=== PATIENT | female | born 1945 | race Caucasian/White ===

== ENCOUNTER → 2018-10-24 | Outpatient (CLI) | payer MEDICARE ==
[~2018-10-24] MED LIST: ACET120S; ALBU3IS INH; ALBU90OI INH; ALBU90OI61 INH; ASPI81CH PO; ATOR10 PO; AZIT500 PO; BISA10S PR; CITA20 PO; Calcitonin-Sal3.7 ML; DEXA4 PO; DILT60 PO; DOCU100 PO; DOXE10 PO; ESTEST.625 PO; EXCEDRIN PM PO; Excedrin Extra1 EACH PO; FAMO10 PO; FAMO20 PO; FURO40 PO; FURO80 PO; HYDCOR10 PO; LEVO750 PO; LEVSOD100 PO; LEVSOD75 PO; LISI5 PO; LOSA25 PO; Lasix80 MG PO; METF500 PO; METO2.5 PO; METO50ER PO; NEBI10 PO; NEBI5 PO; OLME5TAB PO; OMEPRAZOLE20 MG PO; POTA10T PO; POTCHL10ER PO; PRED20 PO; PULMICORT FLEXHALER; Pedi-Dri 100,0060 GM TOP; SODBIC650 PO; SPIR25 PO; SPIRIVA RESPIMAT4 GM INH; Tylenol325 MG PO; WARF5 PO; WARF7.5 PO
[2018-10-24 16:20] LABS: Albumin/Globulin Ratio 1.1 (0.8-1.8); Bilirubin, Total 1.1 mg/dL (0.1-1.0); Bun/Creatinine Ratio 58.4 (12.0-20.0); Calcium, Blood 9.1 mg/dL (8.5-10.1); Creatinine, Blood 1.54 mg/dL (0.40-1.00); Globulin, Blood 3.8 g/dL (2.2-4.0); Potassium, Blood 6.1 mmol/L (3.5-5.5); Total Protein, Blood 7.8 g/dL (6.4-8.2)
[2018-10-31 14:06] LABS: A/G RATIO 1.1 (0.7-1.7); ALBUMIN 3.9 g/dL (2.9-4.4); ALPHA-1-GLOBULIN 0.3 g/dL (0.0-0.4); ALPHA-2-GLOBULIN 0.7 g/dL (0.4-1.0); BETA GLOBULIN 0.8 g/dL (0.7-1.3); GAMMA GLOBULIN 1.8 g/dL (0.4-1.8); GLOBULIN, TOTAL 3.6 g/dL (2.2-3.9); IMMUNOGLOBULIN A, QN, SERUM 1573 mg/dL (64-422); IMMUNOGLOBULIN G, QN, SERUM 713 mg/dL (700-1600); IMMUNOGLOBULIN M, QN, SERUM 41 mg/dL (26-217); PROTEIN, TOTAL, SERUM 7.5 g/dL (6.0-8.5)
== END | disposition home or self-care (01) ==
LOC: LAB 13:44 → LAB SHORT 13:44
PROVIDERS: Internal Medicine Hematology & Oncology
DX: C90.00 Multiple myeloma not having achieved remission (principal)
CPT/HCPCS: 80053; 82784; 83615; 83883; 84155; 84165; 86334

== ENCOUNTER 2018-11-06 04:48 | Inpatient (IN) | payer MEDICARE ==
[~2018-11-06] VITALS: Ht 170.2 cm; Wt 148.3 kg
[~2018-11-06 04:48] MED LIST changes: -ASPI81CH PO; -Calcitonin-Sal3.7 ML; -DEXA4 PO; -DOXE10 PO; -HYDCOR10 PO; -LOSA25 PO; -METO50ER PO; -NEBI5 PO; -OLME5TAB PO; -OMEPRAZOLE20 MG PO; -Pedi-Dri 100,0060 GM TOP; -SODBIC650 PO
[2018-11-06 05:42] LABS: Albumin, Blood 2.6 g/dL (3.4-5.0); Albumin/Globulin Ratio 0.9 (0.8-1.8); Bilirubin, Total 2.1 mg/dL (0.1-1.0); Bun/Creatinine Ratio 60.5 (12.0-20.0); Calcium, Blood 8.7 mg/dL (8.5-10.1); Creatinine, Blood 1.95 mg/dL (0.40-1.00); Globulin, Blood 2.9 g/dL (2.2-4.0); Magnesium, Blood 2.5 mg/dL (1.6-2.4); Potassium, Blood 5.2 mmol/L (3.5-5.5); Total Protein, Blood 5.5 g/dL (6.4-8.2)
[2018-11-06 05:43] LABS: Troponin I 0.913 ng/mL (0.000-0.040)
[2018-11-06 05:52] LABS: Hematocrit 46.5 % (33.0-51.0); Hemoglobin 15.8 g/dL (11.5-16.0); LYMPHOCYTES ABSOLUTE AUTO 0.93 K/mm3 (0.84-5.20); LYMPHOCYTES PERCENT AUTO 2 % (21-46); MONOCYTES ABSOLUTE AUTO 2.32 K/mm3 (0.16-1.47); MONOCYTES PERCENT AUTO 4 % (4-13); Mean Corpuscular HGB 31.3 pg (26.0-34.0); Mean Corpuscular Volume 92 fL (80-100); NRBC ABSOLUTE 0.06 K/mm3 (0.00-0.02); NRBC Auto 0.1 /100 WBC (0.0-0.2); Platelet Count 89 K/mm3 (150-400); RDW Coefficient Variation 14.9 % (11.7-14.2); RDW Standard Deviation 50.6 fL (35.1-46.3); Red Blood Cell Count 5.05 M/mm3 (3.80-5.20)
[2018-11-06 05:54] LABS: BASOPHILS ABSOLUTE AUTO 0.02 K/mm3 (0.00-0.23); BASOPHILS PERCENT AUTO 0 % (0-2); EOSINOPHILS ABSOLUTE AUTO 0.01 K/mm3 (0.00-0.68); EOSINOPHILS PERCENT AUTO 0 % (0-6); IMMATURE GRAN ABSOLUTE AUTO 2.39 K/mm3 (0.00-0.10); IMMATURE GRAN PERCENT AUTO 4 % (0-1); NEUTROPHILS ABSOLUTE AUTO 50.95 K/mm3 (1.96-9.15); NEUTROPHILS PERCENT AUTO 90 % (41-73); White Blood Cell Count 56.62 K/mm3 (4.00-11.30)
[2018-11-06 06:33] LABS: Prothrombin Time Results 41.9 Sec (9.7-11.5)
[2018-11-06 06:34] LABS: International Normalized Ratio 4.54
[2018-11-06 06:47] LABS: PCO2 Arterial 23.7 mmHg (35-45); PO2 Arterial 138 mmHg (80-100); pH Blood Arterial 7.42 (7.35-7.45)
[2018-11-06 08:40] LABS: Phosphorus, Blood 4.1 mg/dL (2.5-4.9)
[2018-11-06 13:10] LABS: Hematocrit 39.9 % (33.0-51.0); Hemoglobin 13.7 g/dL (11.5-16.0); LYMPHOCYTES ABSOLUTE AUTO 0.88 K/mm3 (0.84-5.20); LYMPHOCYTES PERCENT AUTO 1 % (21-46); MONOCYTES ABSOLUTE AUTO 1.92 K/mm3 (0.16-1.47); MONOCYTES PERCENT AUTO 3 % (4-13); Mean Corpuscular HGB 31.5 pg (26.0-34.0); Mean Corpuscular HGB Conc 34.3 g/dL (31.5-36.5); Mean Corpuscular Volume 92 fL (80-100); NRBC ABSOLUTE 0.03 K/mm3 (0.00-0.02); Platelet Count 66 K/mm3 (150-400); RDW Coefficient Variation 14.9 % (11.7-14.2); RDW Standard Deviation 50.4 fL (35.1-46.3); Red Blood Cell Count 4.35 M/mm3 (3.80-5.20)
[2018-11-06] MEDS ORDERED: OMEPRAZOLE20 MG PO (13:15)
[2018-11-06] MEDS ORDERED: POTA10T PO (13:16)
[2018-11-06] MEDS ORDERED: LEVSOD75 PO (13:16)
[2018-11-06] MEDS ORDERED: DEXA4 PO (13:17)
[2018-11-06] MEDS ORDERED: DOXE10 PO (13:19)
[2018-11-06] MEDS ORDERED: OLME5TAB PO (13:20)
[2018-11-06] MEDS ORDERED: LOSA25 PO (13:21)
[2018-11-06] MEDS ORDERED: NEBI5 PO (13:22)
[2018-11-06 13:29] LABS: BASOPHILS ABSOLUTE AUTO 0.02 K/mm3 (0.00-0.23); BASOPHILS PERCENT AUTO 0 % (0-2); EOSINOPHILS ABSOLUTE AUTO 0.02 K/mm3 (0.00-0.68); EOSINOPHILS PERCENT AUTO 0 % (0-6); IMMATURE GRAN ABSOLUTE AUTO 3.01 K/mm3 (0.00-0.10); IMMATURE GRAN PERCENT AUTO 5 % (0-1); NEUTROPHILS ABSOLUTE AUTO 55.12 K/mm3 (1.96-9.15); NEUTROPHILS PERCENT AUTO 91 % (41-73)
[2018-11-06 13:31] LABS: White Blood Cell Count 60.97 K/mm3 (4.00-11.30)
[2018-11-06 13:42] LABS: Albumin, Blood 2.1 g/dL (3.4-5.0); Anion Gap 11 mmol/L (6-16); Blood Urea Nitrogen 114 mg/dL (8-24); Bun/Creatinine Ratio 51.4 (12.0-20.0); CO2, Blood 16 mmol/L (21-32); CPK Creatine Kinase 95 U/L (26-193); Calcium, Blood 7.1 mg/dL (8.5-10.1); Chloride, Blood 112 mmol/L (98-108); Creatinine, Blood 2.22 mg/dL (0.40-1.00); Glomerular Filtration Rate 23 (60-); Glucose, Blood 275 mg/dL (70-99); Phosphorus, Blood 5.1 mg/dL (2.5-4.9); Potassium, Blood 5.1 mmol/L (3.5-5.5); Sodium, Blood 139 mmol/L (136-145)
[2018-11-06 14:14] LABS: Source, Urine Catheter
[2018-11-06 14:23] LABS: Blood, Urine 5+ (Neg); Glucose Qualitative, Urine Neg (Neg); Ketones, Urine 1+ (Neg); Leukocyte Esterase, Urine 3+ (Neg); Nitrite, Urine Neg (Neg); Protein, Urine 2+ (Neg); Urobilinogen, Urine 2+ (Normal)
[2018-11-06 14:30] LABS: Bilirubin, Urine 2+ (Neg)
--- NOTE | 2018-11-06 14:39 | NUR ---
ADMIT: PT ARRIVED TO ICU 7 AT 1120 VIA BED. PT IS IN AFIB WITH RATE IN THE 110-120S. PT IS AWAKE AND ORIENTED. FINGERTIPS ARE CYANOTIC WITH CAP REFILL GREATER THAN 3 SECONDS. UNABLE TO READ BP. SYSTOLIC VIA DOPPLER IS IN THE 60S. DR. WHEATLEY AND DR. RYAN AT THE BEDSIDE. ORDERS RECEIVED FOR 2L NS AND FOR PICC LINE. DR. GARCIA AND STEVEN NOTIFIED OF CONSULTS. PT'S BP READ IN THE 70S AFTER 2L NS, DR. WHEATLEY GAVE ORDER FOR ANOTHER LITER OF NS AND TO START LEVOPHED. LEVOPHED STARTED AT 5 MCG/MIN AND SYSTOLIC VIA DOPPLER IN THE 80S, INCREASED LEVOPHED TO 10. PT HAD NO URINE OUTPUT UPON ARRIVAL TO ICU AND ONLY HAD 20CC IN 3 HOURS, DRS AWARE. LAB CURRENTLY TRYING TO GET BLOOD CULTURES, THEN ABX WILL BE STARTED. CONTINUING TO MONITOR.
[2018-11-06 14:40] LABS: Appearance, Urine Hazy (Clear); Color, Urine Yellow (P-Yellow)
[2018-11-06 14:41] LABS: Bacteria Many /hpf; Red Blood Cells, Urine 25-50 /hpf (0-2); Squamous Epithelial Cells Mod /hpf (Few)
[2018-11-06 16:35] LABS: Albumin, Blood 2.2 g/dL (3.4-5.0); Anion Gap 8 mmol/L (6-16); Blood Urea Nitrogen 113 mg/dL (8-24); Bun/Creatinine Ratio 56.8 (12.0-20.0); CO2, Blood 19 mmol/L (21-32); Calcium, Blood 7.5 mg/dL (8.5-10.1); Chloride, Blood 111 mmol/L (98-108); Creatinine, Blood 1.99 mg/dL (0.40-1.00); Glomerular Filtration Rate 26 (60-); Glucose, Blood 313 mg/dL (70-99); Phosphorus, Blood 5.1 mg/dL (2.5-4.9); Potassium, Blood 4.8 mmol/L (3.5-5.5); Sodium, Blood 138 mmol/L (136-145)
--- NOTE | 2018-11-06 17:22 | NUR ---
SHIFT SUMMARY: PT HAS CONTINUED TO HAVE ISSUES WITH HYPOTENSION SINCE ADMIT. PT IS MORE ALERT, HER FINGERS ARE PINK AND WARM WITH GOOD CAP REFILL, ABLE TO GET GOOD PULSE OX READING OFF OF HER FINGERS NOW, BUT THE MONITORS WILL STILL NOT READ A BP AND DIFFICULT TO AUSCULTATE A MANUAL. DOPPLER SYSTOLIC IS STILL READING SBP OF 80 WITH LEVOPHED INFUSING. PT'S FEET REMAIN COOL TO TOUCH AND A LITTLE DUSKY. DR WHEATLEY IS AWARE OF ALL OF THIS AND CAME BACK TO SEE PT AGAIN THIS AFTERNOON. A 6TH BOLUS OF NS GIVEN PER HIS ORDER. INCREASE IN TROPONIN REPORTED TO HIM AND RECEIVED ORDER FOR EKG. NO OBVIOUS CHANGES ON EKG FROM ONE DONE IN ED EARLIER TODAY. IF ANYTHING, AREAS OF ST DEPRESSION LOOK IMPROVED. LUNGS REMAIN CLEAR, BUT DIM. PT'S FAMILY BROUGHT IN HER CPAP AND RT SET IT UP FOR HER. PATEL HAS HAD ABOUT 30ML OF URINE OUTPUT. PT HAS HAD MULTIPLE FAMILY MEMBERS IN TO SEE HER. DR. WHEATLEY SPOKE WITH AND UPDATED PT'S SISTER, ADELFO AND .
[2018-11-06] MEDS ORDERED: SODBIC650 PO (18:08)
--- NOTE | 2018-11-06 20:42 | NUR ---
CALLED TO CALLED DR. WHEATLEY REGARDING THE INABILTY TO OBTAIN A MANUAL BP ON PT. ALSO ADVISED HIM ABOUT DOPPLER PRESSURES OF 70-80 SYSTOLIC. LEVOPHED INFUSING AT 20MCG/MIN. UPDATED ON PT'S MENTATION AND URINE OUTPUT. ORDERS RECIVED TO CONTINUE TO MONITOR DOPPLER PRESSURES AND TO INFUSE A BOLUS OF 1L NS.
--- NOTE | 2018-11-06 22:36 | NUR ---
ASSUMED CARE NOTE: ASSUMED CARE OF PT AT 1900, RECIEVED REPORT FROM DOMINIQUE ROME. UPON ENTERING PT'S ROOM, SHE WAS IN THE SUPINE POSITION. PT IS ON HOME BIPAP, SP02 ABOVE 90%. LEVOPHED INITALLY AT 15MCG/MIN. UNABLE TO OBTAIN MANUAL BP, DOPPLER READ 70-80 SBP. LEVOPHED THEN TURNED UP TO 20MCG/MIN. BP CUFF WAS MOVED TO RIGHT WRIST AND IS OBTAINING BPS'S. PT IS ALERT AND ORIENTED TO SELF, FAMILY AND SITUATION. PT IS C/O OF BACK PAIN , STATING " IT HURTS WHEN SOMEONE TOUCHES MY LEG, OR WHEN I AM MOVED". SHE ALSO STATES THAT THE PAIN IS DECREASED WHEN SHE IS ABLE TO REMAIN IN THE SUPINE POSITION. PT DESCRIBES PAIN DULL. PT CRIES OUT WHEN SHE IS BEING MOVED OR TOUCHED. PT'S DAUGHTER THINKS THAT PAIN IS DUE TO RECENT FALL 11/01/18 AT HOME. PT WAS MEDICATED FOR PAIN PER EMAR.
--- NOTE | 2018-11-07 02:19 | NUR ---
DOPPLER PRESSURE: UNABLE TO OBTAIN BYRON BP, DOPPLER SBP IS READING 85-90. SLIGHT ELEVATION IN HR NOTED.
[2018-11-07 04:06] LABS: Hematocrit 43.4 % (33.0-51.0); Mean Corpuscular HGB 31.1 pg (26.0-34.0); Mean Corpuscular HGB Conc 34.6 g/dL (31.5-36.5); Mean Corpuscular Volume 90 fL (80-100); NRBC ABSOLUTE 0.08 K/mm3 (0.00-0.02); NRBC Auto 0.2 /100 WBC (0.0-0.2); Platelet Count 65 K/mm3 (150-400); RDW Standard Deviation 50.2 fL (35.1-46.3); Red Blood Cell Count 4.82 M/mm3 (3.80-5.20)
[2018-11-07 04:12] LABS: White Blood Cell Count 51.96 K/mm3 (4.00-11.30)
[2018-11-07 04:19] LABS: Albumin, Blood 2.4 g/dL (3.4-5.0); Anion Gap 10 mmol/L (6-16); Blood Urea Nitrogen 103 mg/dL (8-24); Bun/Creatinine Ratio 63.2 (12.0-20.0); CO2, Blood 20 mmol/L (21-32); Calcium, Blood 7.6 mg/dL (8.5-10.1); Chloride, Blood 106 mmol/L (98-108); Creatinine, Blood 1.63 mg/dL (0.40-1.00); Glomerular Filtration Rate 33 (60-); Glucose, Blood 337 mg/dL (70-99); Magnesium, Blood 2.2 mg/dL (1.6-2.4); Phosphorus, Blood 3.5 mg/dL (2.5-4.9); Potassium, Blood 4.4 mmol/L (3.5-5.5); Sodium, Blood 136 mmol/L (136-145); Uric Acid, Blood 8.8 mg/dL (2.6-6.0)
[2018-11-07 04:33] LABS: BAND PERCENT MAN 8 % (0-8); BASOPHILS PERCENT MAN 0 % (0-2); EOSINOPHILS PERCENT MAN 0 % (0-6); LYMPHOCYTES ABSOLUTE MAN 1.55 K/mm3 (0.84-5.20); LYMPHOCYTES PERCENT MAN 3 % (21-46); METAMYELOCYTE ABSOLUTE MAN 0.51 K/mm3 (0.00-0.00); METAMYELOCYTE PERCENT MAN 1 % (0-0); MONOCYTES ABSOLUTE MAN 2.07 K/mm3 (0.16-1.47); MONOCYTES PERCENT MAN 4 % (4-13); SEG NEUTROPHILS PERCENT MAN 84 % (41-73); TOTAL CELLS COUNTED 100
[2018-11-07 04:51] LABS: International Normalized Ratio 5.27
--- NOTE | 2018-11-07 06:10 | NUR ---
SHIFT SUMMARY: PT CONTINUES TO HAVE HYPOTENSION W/ DOPPLER PRESSURES READING IN THE 80-90'S FOR SBP. MAP ON MONITOR OCCASIONALLY READING 55-80'S. PT CONTINUES TO HAVE LEVOPHED INFUSING AT 20MCG/MIN. DR. WHEATLEY AWARE OF LOW PRESSURES, NS BOLUS INFUSING AT THIS TIME. PT IS CURRENTLY IN AFIB WITH HR INCREASING INTO THE 150'S. PT HAD CHANGES IN MENTATION DURING THE SHIFT, AT TIMES SHE WAS HAVING VISUAL HALLUCINATIONS, HOWEVER, SHE WAS BEEN ALERT AND ORIENTED FOR MOST OF THE SHIFT. PATEL IN PLACE, DRAINING SOFIA URINE. PT HAS BEEN C/O OF FEELING HOT, TEMP WNL. PT REPOSITIONED Q2H. BED AT LOWEST LEVEL, FAMILY AT BEDSIDE.
--- NOTE | 2018-11-07 09:50 | NUR ---
ASSUMED CARE OF PT. REPORT FROM JOVITA ROME. PT RESTING IN BED c DAUGHTER AND AT BEDSIDE. PT A&OX 3. C/O BACK PAIN D/T PREVIOUS FALLS. DENIES OTHER COMPLAINTS. LEVOPHED 20 MCG/MIN, SODIUM BICARB, VANCOMYCIN INFUSING THROUGH PICC TO RIGHT ARM. DIFFICULTIES OBTAINING BP. DR WHEATLEY AT BEDSIDE. ARTERIAL LINE PLACED TO RIGHT FEMORAL ARTERY. FLUSHES s DIFFUCULTY. PRESSURE BAG IN PLACED. SPB 80'S, MAP 50'S. VASOPRESSIN 0.04 UNITS/MIN STARTED. WILL CONTINUE TO TITRATE PRESSORS FOR MAP >65. EXTREMITIES COOL, CYANOTIC, DELAYED CAP REFILL. PT STATES SHE FEELS HOT. TRUNK PALE. HR 130-140'S, AFIB. EKG DONE AND SHOWN TO DR WHEATLEY. PATEL CATH IN PLACE, PATENT, DRAINING SMALL AMOUNT OF CLEAR SOFIA URINE. FAMILY AT BEDSIDE. CALL LIGHT IN REACH. WILL CONTINUE TO MONITOR.
--- NOTE | 2018-11-07 14:28 | NUR ---
BEDBATH AND PARTIAL LINEN CHANGE COMPLETED. PT TOLERATED WELL. CONTINUE TO TITRATE LEVOPHED FOR MAP >65. LEVOPHED INFUSING AT 11 MCG/MIN. FAMILY AT BEDSIDE. DR TERRY IN ROOM FOR ASSESSMENT. IMPROVED CAP REFILL AND COLOR TO LOWER EXTREMITIES. COOL TO TOUCH.
[2018-11-07 16:31] LABS: Bun/Creatinine Ratio 71.7 (12.0-20.0); Calcium, Blood 7.9 mg/dL (8.5-10.1); Creatinine, Blood 1.2 mg/dL (0.40-1.00); Magnesium, Blood 2.1 mg/dL (1.6-2.4); Potassium, Blood 4.2 mmol/L (3.5-5.5)
--- NOTE | 2018-11-07 18:19 | NUR ---
SHIFT SUMMARY. PT LAYING IN BED, WAKES c VERBAL STIMULI. ANSWERS QUESTIONS APPOPRIATELY, OCCASIONALLY HAS RANDOM STATEMENT UNRELATED TO CONVERSATION. QUICKLY REORIENTS. LEVOPHED AT 9 MCG/MIN AND VASOPRESSIN AT 0.04 UNITS/HR FOR MAP >65 TITRATED THROUGHOUT THE DAY. HR REMAINED AFIB RATE 120-140'S THROUGHOUT SHIFT. ABASARA NOTIFIED, NO ORDERS. PT REMAINS COOL TO TOUCH AND DUSKY TO LOWER EXTREMITES THOUGH IMPROVED THROUGHOUT SHIFT. URINE OUTPUT INCREASED TO 900ML THIS SHIFT, PATEL PATENT AND DRAINING TO GRAVITY. FAMILY REMAINS AT BEDSIDE. REPORT TO ONCOMING NURSE.
--- NOTE | 2018-11-07 19:25 | NUR ---
DNR/DNI: DR. GARCIA AT BEDSIDE DURING SHIFT-CHANGE REPORT. LOLY RN AND SOFIA RN UPDATED DR. GARCIA IN REGARDS BLOOD PRESSURES T/O DAY SHIFT AND PT'S FREQUENT REQUESTS TO BE DNR. FAMILY AND SPOUSE AT BEDSIDE AND CONFIRMED THAT PT IS TO BE DNR. CURRENTLY FAMILY INCLUDING DAUGHTER JEANMARIE AND SPOUSE AT BEDSIDE AND CONFIRMED THAT PT IS TO BE DNR/DNI. PT LYING SUPINE. FAMILY STATE THAT PT PREFERES TO LIE FLAT. PT WITH CPAP AT BEDSIDE. PT'S DAUGHTER JEANMARIE STATED THAT PT HAS BEEN REFUSING TO WEAR HER CPAP BOTH LAST NOC AND DURING TODAY. FAMILY REMAIN AT BEDSIDE.
--- NOTE | 2018-11-07 22:10 | NUR ---
START OF SHIFT: PT DROWSY BUT AWAKENS EASILY TO RN OR FAMILY AT BEDSIDE. PT ANSWERING QUESTIONS APPROPRIATELY WHEN AWAKE. ARTLINE WNL WITH LEVOPHED INCREASED FROM 8mcg TO 9mcg TO KEEP MAP >65. SEE FLOW SHEET. PT LYING SUPINE AND STATED WANTS TO REMAIN IN THAT POSITION. PT BROUGHT TO LOW FOWLERS FOR PO MED AND PT YELLED OUT STATING, "IT HURTS BY BACK. I HAVE TO TEACH EVERYBODY!". PT'S DAUGHTER AT BEDSIDE AND STATED THAT THE PT WILL RADOMLY REQUEST TO BE MOVED BUT PREFERS TO LIE FLAT. SKIN OVERALL DRY BUT COOL TO THE TOUCH. PT STATED SHE GETS HOT REAL EASILY AND HAS TWO FANS BLOWING ON HER. EXTREM COOL BUT NAILBEDS PINK. HEEL PROTECTORS PLACED. PT REQUESTING TO SLEEP. WILL CONTINUE TO MONITOR.
--- NOTE | 2018-11-08 00:57 | NUR ---
UPDATE: PT REMAINS SUPINE, HOWEVER, REQUESTED BEDPAN. PT PASSING FLATUS AND STATED, "IT'S COMING". PT WITH ATTEMPT TO HAVE BM BUT STATED THAT SHE NEEDS TO USE THE COMMODE. PT GIVEN TIME ON BEDPAN BUT WITH NO RESULT. SKIN AND BUTTOCKS ASSESSED AND ARE WITHOUT REDNESS OR S/S OF SKIN BREAKDOWN. PT TOLERATED TURNS WELL GOING SLOWLY AND WITH PT INPUT. PT GIVEN TYLENOL PER REQUEST OF PT'S DAUGHTER WHO STATED PT TAKES TYLENOL FOR GENERAL ACHES. MIDNIGHT ASSESSMENT WITH NO CHANGES FROM PREVIOUS ASSESSMENT. ART LINE ZEROED. PT REQUEST TO LET SLEEP. LEVOPHED NOW AT 10mcg/min. WILL CONTINUE TO MONITOR.
[2018-11-08 03:51] LABS: BASOPHILS ABSOLUTE AUTO 0.08 K/mm3 (0.00-0.23); BASOPHILS PERCENT AUTO 0 % (0-2); EOSINOPHILS ABSOLUTE AUTO 0.03 K/mm3 (0.00-0.68); EOSINOPHILS PERCENT AUTO 0 % (0-6); Hematocrit 39.1 % (33.0-51.0); Hemoglobin 13.6 g/dL (11.5-16.0); IMMATURE GRAN ABSOLUTE AUTO 0.65 K/mm3 (0.00-0.10); IMMATURE GRAN PERCENT AUTO 2 % (0-1); LYMPHOCYTES ABSOLUTE AUTO 1.38 K/mm3 (0.84-5.20); LYMPHOCYTES PERCENT AUTO 4 % (21-46); MONOCYTES ABSOLUTE AUTO 1.09 K/mm3 (0.16-1.47); MONOCYTES PERCENT AUTO 3 % (4-13); Mean Corpuscular HGB 30.8 pg (26.0-34.0); Mean Corpuscular HGB Conc 34.8 g/dL (31.5-36.5); Mean Corpuscular Volume 89 fL (80-100); NEUTROPHILS ABSOLUTE AUTO 31.72 K/mm3 (1.96-9.15); NEUTROPHILS PERCENT AUTO 91 % (41-73); NRBC Auto 0.3 /100 WBC (0.0-0.2); RDW Coefficient Variation 14.8 % (11.7-14.2); RDW Standard Deviation 48.1 fL (35.1-46.3); Red Blood Cell Count 4.41 M/mm3 (3.80-5.20); White Blood Cell Count 34.95 K/mm3 (4.00-11.30)
[2018-11-08 03:55] LABS: Platelet Count 44 K/mm3 (150-400)
[2018-11-08 04:04] LABS: International Normalized Ratio 2.46
[2018-11-08 04:10] LABS: Albumin/Globulin Ratio 0.7 (0.8-1.8); Bilirubin, Direct 1.1 mg/dL (0.0-0.3); Bilirubin, Indirect 1.2 mg/dL (0.1-0.7); Bilirubin, Total 2.3 mg/dL (0.1-1.0); Bun/Creatinine Ratio 68.6 (12.0-20.0); Calcium, Blood 8.7 mg/dL (8.5-10.1); Creatinine, Blood 1.05 mg/dL (0.40-1.00); Globulin, Blood 2.8 g/dL (2.2-4.0); Phosphorus, Blood 2.7 mg/dL (2.5-4.9); Potassium, Blood 4.2 mmol/L (3.5-5.5); Total Protein, Blood 4.8 g/dL (6.4-8.2); Uric Acid, Blood 7.7 mg/dL (2.6-6.0)
[2018-11-08 04:37] LABS: PO2 Arterial 104 mmHg (80-100); pH Blood Arterial 7.49 (7.35-7.45)
--- NOTE | 2018-11-08 04:56 | NUR ---
DR. WHEATLEY NOTIFIED: CRITICAL VALUE PLATELETS OF [address] WHETALEY UPDATED WITH LAB VALUES IN ADDITION TO BLOOD GLUCOSE LEVELS UPPER 300'S-404. HR CONSISTENTLY 130'S-160. NEW ORDERS: 1) START PT ON INSULIN gtt FOR [employer] BLOOD GLUCOSE BETWEEN 100-150. NO FURTHER ORDERS AT THIS TIME.
--- NOTE | 2018-11-08 07:19 | NUR ---
DR. RYAN AT BEDSIDE AT APPROX 0600 AND UPDATED. PT FAMILY AT BEDSIDE. PT MORE CONVERSIVE WITH FAMILY AND, "MORE HERSELF" PER FAMILY. REPORT TO JOCE ROME. CATRACHO REVIEWED. INSULING gtt AT 8 UNITS THIS HOUR. FAMILY REMAIN AT BEDSIDE.
--- NOTE | 2018-11-08 07:27 | NUR ---
ASSUMED CARE REPORT FROM ADRIAN Navarro RN. MORBIDLY OBESE PATIENT SUPINE WITH SLIGHT TILT TO LEFT SIDE. A-LINE RIGHT FEMORAL ZERO'D AND CALIBRATED. WAVE FORM SLIGHTLY DAMPENED. PATIENT IS COOL TO TOUCH WITH FANS ON EACH SIDE OF THE BED. TEMP 95.5, SHE REPORTS SHE IS COMFORTABLE WITH JUST A SHEET ON AND WOULD BE NAKED IF SHE COULD BE. LEVOPHED AT 11 MCG/MIN VASOPRESSIN 0.04 UNITS/MIN INSULIN GTT 8 UNITS/HR BICARB GTT 150 ML/HR. ECHO BEING PERFORMED BY SHRUTHI.
--- NOTE | 2018-11-08 09:32 | NUR ---
MD VISIT DR. TERRY IN
--- NOTE | 2018-11-08 10:36 | NUR ---
MD VISIT DR. ONOFRE IN
--- NOTE | 2018-11-08 11:46 | NUR ---
INSULIN GTT TITRATED TO 6 UNITS/HOUR. AMIODARONE BOLUS AND GTT STARTED
--- NOTE | 2018-11-08 16:56 | NUR ---
DR. GARCIA CALLED FOR AN UPDATE
--- NOTE | 2018-11-08 17:03 | NUR ---
500 CC NS BOLUS FOR LOW URINE OUTPUT. LEVOPHED TITRATED TO 10 MCG/MIN. INSULIN 6.5 UNITS/HOUR
--- NOTE | 2018-11-08 18:21 | NUR ---
LEVOPHED GTT IS AT 8 MCG/MIN. INSULIN 5 UNITS/HR. AMIODARONE TURNED TO 0.5 MG/MIN PER PROTOCOL. BICARB GTT 150 ML/HR VASOPRESSIN CONTINUES. 500 CC BOLUS X2 FOR A TOTAL 1L. PATIENT HAS FELT MUCH BETTER TODAY, ATE 35% OF HER DINNER. SHE NOW HAS HER CPAP MASK ON AND IS GOING TO SLEEP
--- NOTE | 2018-11-08 19:54 | NUR ---
Called to bedside to assist family with decions of level of care and polst. pt does not want exptrodianry measures but still persuing care. polst completed with DNR level of medical care is limited no intubation. pt would contine icu care for pressors or supportive care at this. As her diseases progresses they will consider comfort only. Discussion of future care was presented as a family decision that matches their spiritual beliefs and would reduce exptrodianry suffering and a respectful peacefull passing. patient and her daughter very receptive to conversation. Theraputic conversation between family. will follow for supportive care.
--- NOTE | 2018-11-08 19:56 | NUR ---
REPORT FROM JOCE ROME. PT LYING SUPINE IN BED WATCHING TV. PT WEARING CPAP, FAMILY AT BEDSIDE. VSS. ARTLINE ZEROED. BLOOD GLUCOSE OBTAINED. LEVOPHED AT 8mcg. VASOPRESSIN 0.04 u/min. BICARB INF CONT. INSULIN gtt TITRATED FROM 5u TO 6u FOR BG OF 212. Q1 POC BG CONT. AMIODARONE gtt AT 0.5 mg/min INFUSING. PT AND SISTER UPATED ON NOC PLAN. PT STATED IS FEELING MUCH BETTER. PT WITH NO COMPLAINTS, QUESTIONS, OR REQUESTS AT THIS TIME BESIDE WANTING TO SLEEP TONIGHT. SISTER STAYING IN ROOM WITH PT T/O NOC.
--- NOTE | 2018-11-09 03:11 | NUR ---
UPDATE: PT PLEASANT WITH NO COMPLAINTS T/O NOC. LEVOPHED TITRATED TO 4mcg/min. VASOPRESSIN TRIED AT PAUSE BUT PT BECAME SLIGHTLY HYPOTENSIVE. VASOPRESSIN CONTINUED INFUSION. AMIODARONE gtt CONTINUED WITH HR REMAINING IN THE 90'S-LOW 100'S. INSULIN gtt TITRATED BETWEEN 5-8 u/hr CURRENTLY AT 6 u/hr. BLOOD GLUCOSE BETWEEN 160'S-214. SODIUM BICARB INF CONTINUES AT 150mL/hr. PT WORE CPAP FOR FIRST PART OF SHIFT AND REMOVED IT. PT REQUESTED REPOSITIONING APPRX 30min AGO. PT REPOSITIONED TO LEFT SIDE AND TOLERATED WELL. PT GIVEN FRUIT CUP PER REQUEST. PT OTHERWISE STATED IS FEELING BETTER AND REQUESTS TO USE BEDSIDE COMMODE AFTER BREAKFAST.
[2018-11-09 04:16] LABS: BASOPHILS ABSOLUTE AUTO 0.05 K/mm3 (0.00-0.23); BASOPHILS PERCENT AUTO 0 % (0-2); EOSINOPHILS PERCENT AUTO 0 % (0-6); Hematocrit 35.9 % (33.0-51.0); Hemoglobin 12.5 g/dL (11.5-16.0); IMMATURE GRAN ABSOLUTE AUTO 0.93 K/mm3 (0.00-0.10); IMMATURE GRAN PERCENT AUTO 3 % (0-1); LYMPHOCYTES ABSOLUTE AUTO 1.56 K/mm3 (0.84-5.20); LYMPHOCYTES PERCENT AUTO 5 % (21-46); MONOCYTES ABSOLUTE AUTO 1.78 K/mm3 (0.16-1.47); MONOCYTES PERCENT AUTO 6 % (4-13); Mean Corpuscular HGB 31.2 pg (26.0-34.0); Mean Corpuscular HGB Conc 34.8 g/dL (31.5-36.5); Mean Corpuscular Volume 90 fL (80-100); NEUTROPHILS ABSOLUTE AUTO 25.18 K/mm3 (1.96-9.15); NEUTROPHILS PERCENT AUTO 85 % (41-73); NRBC ABSOLUTE 0.09 K/mm3 (0.00-0.02); NRBC Auto 0.3 /100 WBC (0.0-0.2); RDW Coefficient Variation 14.7 % (11.7-14.2); RDW Standard Deviation 48.5 fL (35.1-46.3); Red Blood Cell Count 4.01 M/mm3 (3.80-5.20)
[2018-11-09 04:20] LABS: Platelet Count 48 K/mm3 (150-400)
[2018-11-09 04:30] LABS: Albumin, Blood 1.8 g/dL (3.4-5.0); Anion Gap 6 mmol/L (6-16); Blood Urea Nitrogen 67 mg/dL (8-24); Bun/Creatinine Ratio 63.8 (12.0-20.0); CO2, Blood 32 mmol/L (21-32); Calcium, Blood 8.2 mg/dL (8.5-10.1); Chloride, Blood 96 mmol/L (98-108); Creatinine, Blood 1.05 mg/dL (0.40-1.00); Glomerular Filtration Rate 55 (60-); Glucose, Blood 164 mg/dL (70-99); Magnesium, Blood 1.9 mg/dL (1.6-2.4); Phosphorus, Blood 1.7 mg/dL (2.5-4.9); Potassium, Blood 3.5 mmol/L (3.5-5.5); Sodium, Blood 134 mmol/L (136-145)
--- NOTE | 2018-11-09 05:53 | NUR ---
DR. GUSMAN TO BEDSIDE.
--- NOTE | 2018-11-09 07:27 | NUR ---
SHIFT SUMMARY: PT REMAINED ON LEVOPHED AND VASOPRESSIN T/O SHIFT. LEVOPHED THIS AM 4mcg. INSULIN 6u/HR. AMIODARONE NEAR COMPLETE. SODIUM BICARB CONTINUES 150mL/hr. PT CONTINUING TO FEEL BETTER. FAMILY AT BEDSIDE AND UPDATED. PT ONLY COMPLAINT IS NEEDING TO USE COMMODE TO HAVE BM. PT NOT ABLE TO LYING IN BED. THIS AND REST OF REPORT GIVEN TO ONCOMING RNS POLLY AND ROEL.
--- NOTE | 2018-11-09 08:00 | NUR ---
ASSUMPTION OF CARE: ASSUMPED CARE OF PT @ 0700. PT SLEEPING, AROUSABLE AND ALERT. LEVOPHED AND VASOPRESSIN RUNNING WITH MAPS 70'S-80'S, ART LINE IN PLACE, SOME BRUISING NOTED AROUND INSERTION SITE, OTHERWISE WNL. INSULIN DRIP @6, CBG 150'S-180. SKIN IS COOL, 3+ EDEMA TO LOWER EXTREMITIES, ONE TIME DOSE OF LASIX 40mg IV ADMINISTERED THIS AM.
--- NOTE | 2018-11-09 11:22 | NUR ---
DR ONOFRE IN ROOM. PLAN TO START PO AMIODARONE AND LONG ACTING INSULIN.
--- NOTE | 2018-11-09 18:25 | NUR ---
SHIFT SUMMARY PT ALERT AND ORIENTED T/O SHIFT, PT REMAINS IN AFIB WITH RATE 100-140, PT TRANSITION TO PO AMIO EARLY THIS SHIFT, ORDERS TO DC PO AMIO AND INITIATE AMIO DRIP AT .5 TOWARDS END OF SHIFT. PT REMAINS ON VASOPRESSIN @ .04 AND LEVOPHED @ 4, MAPS 60'S-70'S T/O SHIFT, PO MIDODRINE STARTED THIS SHIFT. PT LUNGS CLEAR, DEMINISHED IN THE BASES, PRODUCTIVE COUGH WITH DARK YELLOW TO BROWN SECRETIONS, PT SELF SUCTIONS NEEDED. INSULIN DRIP TITRATED DOWN TO 2U/hr, SC LONG ACTING INSULIN STARTED. PT HAD BM THIS SHIFT, URINE OUTPUT THIS SHIFT 425.
--- NOTE | 2018-11-09 18:54 | NUR ---
LOW URINE OUTPUT NOTED SINCE APPROX 1200, FLUSHED PATEL WITH 30ml STERILE WATER, FLUSHED WELL WITH GOOD RETURN. DISCUSSED WITH DR JEMIMA MEANS 2MG IV X1 ORDERED.
--- NOTE | 2018-11-09 19:15 | NUR ---
[place] of Care: Patient alert and oriented x4, sitting upright in bed watching TV. C/o occasional chronic lower back pain, not requiring interventions at this time. Denies dyspnea/SOB, O2-96-98% on RA. Heart rhythm shows A-Fibb, rate 100-130's, Amiodarone gtt started at 0.5mg/min shortly after shift change, per Dr. Walsh's orders. Levophed and Vasopressin gtt infusing, see flow sheet, BP wnl at this time. PICC line to SHITAL, patent and intact, infusing without difficulty. Art line to Rt femoral artery, site and catheter appear wnl, good waveform and monitor. Dinh cath patent and intact, draining clear yellow urine. Tolerating PO fluids and food without difficulty. Call light in reach, makes needs known. Will continue to monitor for pain, safety, comfort.
[2018-11-10 04:21] LABS: Hematocrit 37.6 % (33.0-51.0); Hemoglobin 12.5 g/dL (11.5-16.0); Mean Corpuscular HGB 30.9 pg (26.0-34.0); Mean Corpuscular HGB Conc 33.2 g/dL (31.5-36.5); NRBC ABSOLUTE 0.07 K/mm3 (0.00-0.02); NRBC Auto 0.3 /100 WBC (0.0-0.2); Platelet Count 66 K/mm3 (150-400); RDW Coefficient Variation 14.6 % (11.7-14.2); RDW Standard Deviation 49.6 fL (35.1-46.3); Red Blood Cell Count 4.05 M/mm3 (3.80-5.20)
[2018-11-10 04:24] LABS: Mean Corpuscular Volume 93 fL (80-100)
[2018-11-10 04:32] LABS: International Normalized Ratio 1.51; Prothrombin Time Results 15.4 Sec (9.7-11.5)
[2018-11-10 04:40] LABS: Albumin/Globulin Ratio 0.7 (0.8-1.8); Bilirubin, Total 1.5 mg/dL (0.1-1.0); Bun/Creatinine Ratio 55.7 (12.0-20.0); Calcium, Blood 8.3 mg/dL (8.5-10.1); Creatinine, Blood 1.15 mg/dL (0.40-1.00); Globulin, Blood 2.9 g/dL (2.2-4.0); Magnesium, Blood 1.8 mg/dL (1.6-2.4); Phosphorus, Blood 2.4 mg/dL (2.5-4.9); Potassium, Blood 3.8 mmol/L (3.5-5.5); Total Protein, Blood 4.9 g/dL (6.4-8.2)
--- NOTE | 2018-11-10 06:18 | NUR ---
Shift Summary: Patient slept well throughout shift. C/o back pain and left leg pain effectively managed with repositioning, no medication interventions required. Continues to deny dyspnea/SOB, O2-96-98% on RA. Levophed titrated down from 4mcg/min to 3mcg/min, Vasopressin placed on stand-by at approx 0500hr, MAP's remain 60's-80's, adequate urine output (850ml). PICC line to SHITAL remains patent and intact, infusing without difficulty. Arterial line to rt femoral artery remains patent and intact, distal limb wnl. Phosphorus of 2.4 this morning, received orders from Dr. Walsh for Sodium Phosphate 10mm IV x1. Call light in reach, makes needs known. Will continue to monitor until report to day shift RN.
--- NOTE | 2018-11-10 10:02 | NUR ---
PT SLEEPING, AROUSES TO VOICE AT 0715. PT STATES SHE FEELS BETTER THAN THE DAY PRIOR. INSULIN GTT AT 4UNITS, LANTUS GIVEN, INSULIN THEN DROPPED TO 3UNITS. MAY BE PLACED ON S/S SCALE TODAY. LEVOPHED DECREASED FROM 3MCG TO 2MCG. AMIO AT 0.5MG/MIN. VASOPRESSIN OFF. PLAN TO WEAN OF LEVOPHED TOLERATED AND POSSIBLE DC OF ART LINE.
--- NOTE | 2018-11-10 12:00 | NUR ---
NO CHANGE IN ASSESSMENT FROM THIS AM
--- NOTE | 2018-11-10 12:36 | NUR ---
DR ARDON CALLED PER DR ONOFRE REQUEST FOR INPUT ON RATE CONTROL; DR ARDON WILL SEE PT TODAY. DR TERRY IN TO SEE PT; JAYDEN SIGNED.
--- NOTE | 2018-11-10 14:38 | NUR ---
DR ARDON IN TO SEE PT. ADENOSINE 6MG FOLLOWED BY 12MG FAST IVP GIVEN TO PT WITH DR ARDON AT BEDSIDE. DEFIB PADS ON PT FOR MONITORING. RATE SLOWED WITHOUT SIGNIFICANT PAUSES AFTER 12MG DOSE GIVEN. PLAN TO START ON AMIODARONE 400MG TID. WILL TURN GTT OFF 1 HR AFTER PO STARTED PER DR ARDON.
--- NOTE | 2018-11-10 15:35 | NUR ---
BLOOD SUGAR 122. INSULIN GTT TURNED OFF PER ORDERS. LEVOPHED PLACED ON HOLD. LR DECREASED TO 50CC/HR AT 1200 PER ORDERS.
--- NOTE | 2018-11-10 20:03 | NUR ---
LEVOPHED REMAINS OFF. AMIODARONE TURNED OFF AT [address] ARDON ORDERS. PT HAD SMALL PASTY BM TO BEDPAN. REPORT GIVEN TO JERARDO ROME
--- NOTE | 2018-11-10 21:00 | NUR ---
[place] of Care: Care assumed at 1900hr. Patient alert and oriented sitting upright in bed watching TV with family at bedside. C/o mild pain to hips and lower back, prn tylenol given with good effect. Denies dyspnea/SOB, O2-98% on RA. Dinh cath patent and intact, draining clear yellow urine. Received orders per Dr. Walsh to D/C arterial line to rt femoral artery, NIBP correlating to arterial line readings. Rt femoral arterial line removed at approx 2055hr, and direct pressure held for 20min. No s/s of bleeding or hematoma noted, site remains stable. PICC line to SHITAL remains patent and intact, infusing LR at 50ml/hr without difficulty. Call light in reach, makes needs known. Will continue to monitor for pain, safety, comfort.
[2018-11-11 04:09] LABS: BASOPHILS ABSOLUTE AUTO 0.07 K/mm3 (0.00-0.23); BASOPHILS PERCENT AUTO 0 % (0-2); EOSINOPHILS ABSOLUTE AUTO 0.04 K/mm3 (0.00-0.68); EOSINOPHILS PERCENT AUTO 0 % (0-6); Hematocrit 36.6 % (33.0-51.0); Hemoglobin 12.3 g/dL (11.5-16.0); IMMATURE GRAN ABSOLUTE AUTO 0.43 K/mm3 (0.00-0.10); IMMATURE GRAN PERCENT AUTO 2 % (0-1); LYMPHOCYTES ABSOLUTE AUTO 1.79 K/mm3 (0.84-5.20); LYMPHOCYTES PERCENT AUTO 7 % (21-46); MONOCYTES ABSOLUTE AUTO 1.29 K/mm3 (0.16-1.47); MONOCYTES PERCENT AUTO 5 % (4-13); Mean Corpuscular HGB 31.2 pg (26.0-34.0); Mean Corpuscular HGB Conc 33.6 g/dL (31.5-36.5); Mean Corpuscular Volume 93 fL (80-100); NEUTROPHILS ABSOLUTE AUTO 22.13 K/mm3 (1.96-9.15); NEUTROPHILS PERCENT AUTO 86 % (41-73); NRBC ABSOLUTE 0.33 K/mm3 (0.00-0.02); NRBC Auto 1.3 /100 WBC (0.0-0.2); Platelet Count 95 K/mm3 (150-400); RDW Coefficient Variation 14.6 % (11.7-14.2); RDW Standard Deviation 49.1 fL (35.1-46.3); Red Blood Cell Count 3.94 M/mm3 (3.80-5.20); White Blood Cell Count 25.75 K/mm3 (4.00-11.30)
[2018-11-11 04:21] LABS: International Normalized Ratio 1.34; Prothrombin Time Results 13.8 Sec (9.7-11.5)
[2018-11-11 04:22] LABS: Anion Gap 5 mmol/L (6-16); Blood Urea Nitrogen 74 mg/dL (8-24); Bun/Creatinine Ratio 46.8 (12.0-20.0); CO2, Blood 35 mmol/L (21-32); Calcium, Blood 8.2 mg/dL (8.5-10.1); Chloride, Blood 92 mmol/L (98-108); Creatinine, Blood 1.58 mg/dL (0.40-1.00); Glomerular Filtration Rate 34 (60-); Glucose, Blood 144 mg/dL (70-99); Magnesium, Blood 1.8 mg/dL (1.6-2.4); Phosphorus, Blood 3.2 mg/dL (2.5-4.9); Potassium, Blood 3.7 mmol/L (3.5-5.5); Sodium, Blood 132 mmol/L (136-145)
--- NOTE | 2018-11-11 06:11 | NUR ---
Shift Summary: Patient slept well throughout shift. Remains oriented x4. X1 dose of tylenol given at start of shift per c/o back/hip pain with good effect noted, no further complaints. Continues to deny dyspnea/SOB, O2-96-98% on RA. BP decreased to systolic 70's-80's, Levophed gtt infused at 2-3mcg for approx 4-5hrs, now back on stand-by, BP stable. PICC line to SHITAL remains patent and intact, infusing without difficulty. PICC dressing changed this shift per lifting, new dressing remains C/D/I. Dinh cath remains patent and intact, draining clear yellow urine, approx 850ml output. Heart rhythm remains in A-fibb- rate 100-120's. Call light in reach, makes needs known. Will continue to monitor until report to day shift RN.
--- NOTE | 2018-11-11 09:00 | NUR ---
ASSUMED CARE OF PT AT 0700. REPORT FROM JERARDO ROME. PT RESTING IN BED. A&OX 3. ANSWERS QUESTIONS APPROPRIATELY. C/O ONLY OF BACK PAIN D/T FALL PRIOR TO ADMISSION. LUNGS CLEAR, DIMINISHED IN BASES. PEDIAL PULSE BY DOPPLER, 2+ EDEMA TO LOWER EXTREMITIES. ABD ROUND, SOFT NON TENDER. PT c GOOD APPETITE. PATEL PATENT AND DRAINING TO GRAVITY. PICC LINE INFUSING. LEVOPHED STARTED AT 4 MCG/MIN FOR MAP >65. WILL TITRATE. CALL LIGHT IN REACH. WILL CONTINUE TO MONITOR.
--- NOTE | 2018-11-11 10:52 | NUR ---
DR ONOFRE AT BEDSIDE FOR ASSESSMENT. IVF D/C'D. WILL PLAN FOR CHANGES TO MIDODRINE. WILL INCREASE ROM AND MOBILITY TODAY.
--- NOTE | 2018-11-11 16:56 | NUR ---
PT RESTING IN BED. LEVOPHED REMAINS OFF. VSS. PT'S CPAP IN PLACE. REPOSITIONED FOR COMFORT. WILL CONTINUE TO MONITOR.
--- NOTE | 2018-11-11 18:00 | NUR ---
SHIFT SUMMARY PT RESTING IN BED, SO AT BEDSIDE. A&OX 3. LEVOPHED TITRATED OFF DURING THIS SHIFT. MAP >65. HR 100-120'S THROUGHOUT SHIFT. PT ABLE TO ROLL AND ASSIST c CARE. PT AND OT THERAPIES TODAY. PT STATES TREATMENTS WENT WELL. PT WORE HOME CPAP MOST OF SHIFT, STATES THIS NORMAL FOR HER. GOOD APPETITE. CALL LIGHT IN REACH. REPORT TO ONCOMING NURSE.
--- NOTE | 2018-11-12 00:01 | NUR ---
UPDATE PATIENT PLEASENT AND COOPERATIVE THIS EVENING. PATIENT HAS HAD LOTS OF VISITORS THROUGHOUT THE NIGHT. HOWEVER, PATIENT STATES SHE IS VERY TIRED AND SLEEPY. FAMILY HAS LEFT AND PATIENT CURRENTLY APPEARS TO BE ASLEEP. CPAP IN PLACE AND 4L O2 VIA N/C DUE TO HOME CPAP AND NO PLACE FOR BLEED IN. PATIENT APPEARS TO BE ABLE TO MOVE SELF ABOUT IN BED, ASSISTANCE PROVIDED NEEDED. CALL LIGHT WITHIN REACH. WILL CONTINUE TO MONITOR PATIENT.
[2018-11-12 03:51] LABS: BASOPHILS ABSOLUTE AUTO 0.03 K/mm3 (0.00-0.23); BASOPHILS PERCENT AUTO 0 % (0-2); EOSINOPHILS ABSOLUTE AUTO 0.02 K/mm3 (0.00-0.68); EOSINOPHILS PERCENT AUTO 0 % (0-6); Hematocrit 33.7 % (33.0-51.0); Hemoglobin 11.3 g/dL (11.5-16.0); IMMATURE GRAN ABSOLUTE AUTO 0.32 K/mm3 (0.00-0.10); IMMATURE GRAN PERCENT AUTO 2 % (0-1); LYMPHOCYTES ABSOLUTE AUTO 1.32 K/mm3 (0.84-5.20); LYMPHOCYTES PERCENT AUTO 8 % (21-46); MONOCYTES ABSOLUTE AUTO 0.77 K/mm3 (0.16-1.47); MONOCYTES PERCENT AUTO 5 % (4-13); Mean Corpuscular HGB 31.5 pg (26.0-34.0); Mean Corpuscular HGB Conc 33.5 g/dL (31.5-36.5); Mean Corpuscular Volume 94 fL (80-100); NEUTROPHILS ABSOLUTE AUTO 13.84 K/mm3 (1.96-9.15); NEUTROPHILS PERCENT AUTO 85 % (41-73); NRBC ABSOLUTE 0.31 K/mm3 (0.00-0.02); NRBC Auto 1.9 /100 WBC (0.0-0.2); Platelet Count 96 K/mm3 (150-400); RDW Coefficient Variation 14.9 % (11.7-14.2); RDW Standard Deviation 50.2 fL (35.1-46.3); Red Blood Cell Count 3.59 M/mm3 (3.80-5.20)
[2018-11-12 04:03] LABS: International Normalized Ratio 1.25
[2018-11-12 04:06] LABS: Albumin, Blood 1.9 g/dL (3.4-5.0); Anion Gap 5 mmol/L (6-16); Blood Urea Nitrogen 78 mg/dL (8-24); Bun/Creatinine Ratio 46.2 (12.0-20.0); CO2, Blood 36 mmol/L (21-32); Chloride, Blood 94 mmol/L (98-108); Creatinine, Blood 1.69 mg/dL (0.40-1.00); Glomerular Filtration Rate 32 (60-); Glucose, Blood 98 mg/dL (70-99); Magnesium, Blood 1.9 mg/dL (1.6-2.4); Phosphorus, Blood 3.5 mg/dL (2.5-4.9); Potassium, Blood 3.9 mmol/L (3.5-5.5); Sodium, Blood 135 mmol/L (136-145)
--- NOTE | 2018-11-12 06:03 | NUR ---
SHIFT SUMMARY PATIENT MEDICATED FOR PAIN PER EMAR. PATIENT APPEARED TO SLEEP WELL THROUGHOUT THE REST OF THE NIGHT. 4L O2 VIA N/C AND HOME CPAP IN PLACE LAST NIGHT. PATIENT REFUSED TURNING THIS MORNING STATING, "I'M COMFORTABLE HERE." CHEST X-RAY OBTAINED THIS AM. PATIENT CURRENTLY APPEARS TO BE SLEEPING WELL AT THIS TIME. BED IN LOW, LOCKED POSITION. CALL LIGHT WITHIN REACH. WILL CONTINUE TO MONITOR PATIENT AND REPORT TO ONCOMING RN.
--- NOTE | 2018-11-12 16:37 | NUR ---
TRANSFER TO 333: REPORT GIVEN TO FARHAN RN. PT UP IN RECLINER AT THIS TIME WITH CELING LIFT ASSISTANCE. PT TOLLERATING WELL
[2018-11-13 04:38] LABS: Hematocrit 33.2 % (33.0-51.0)
--- NOTE | 2018-11-13 04:46 | NUR ---
SHIFT SUMMARY PT HAD NO ISSUES OR COMPLAINTS. PT FAMILY WAS PRESENT FOR MOST OF SHIFT. PT HAS NOT SLEPT MUCH DURING SHIFT. PT HAS BEEN RESTING WITH CPAP ON. PT CURRENTLY AWAKE WATCHING TV. CALL LIGHT IN REACH.
[2018-11-13 04:55] LABS: Albumin, Blood 2.3 g/dL (3.4-5.0); Anion Gap 5 mmol/L (6-16); Blood Urea Nitrogen 80 mg/dL (8-24); CO2, Blood 36 mmol/L (21-32); Calcium, Blood 8.1 mg/dL (8.5-10.1); Chloride, Blood 97 mmol/L (98-108); Creatinine, Blood 1.57 mg/dL (0.40-1.00); Glomerular Filtration Rate 34 (60-); Glucose, Blood 111 mg/dL (70-99); Magnesium, Blood 2.1 mg/dL (1.6-2.4); Phosphorus, Blood 3.6 mg/dL (2.5-4.9); Potassium, Blood 3.9 mmol/L (3.5-5.5); Sodium, Blood 138 mmol/L (136-145)
[2018-11-13 04:56] LABS: International Normalized Ratio 1.49; Prothrombin Time Results 15.2 Sec (9.7-11.5)
--- NOTE | 2018-11-13 17:45 | NUR ---
SHIFT SUMMARY PATIENT PLEASANT, ALERT AND ORIENTED. SHE HAS WORN HER CPAP TODAY SHE STATES IT IS MORE COMFORTABLE FOR HER INSTEAD OF THE NASAL CANULA AND SHE CAN SLEEP IF SHE FEELS UP TO IT. SHE HAS TAKEN HER PILLS APPROPRIATELY, AND NO ACUTE CONCERNS AT THIS TIME. SHE IS AWAITING A DR. JONES CONSULT.
[2018-11-14 05:08] LABS: Hematocrit 34.4 % (33.0-51.0); Hemoglobin 11.3 g/dL (11.5-16.0)
--- NOTE | 2018-11-14 05:22 | NUR ---
SHIFT SUMMARY PT HAD NO ISSUES OR COMPLAINTS. PT HAS SLEPT WELL T/O SHIFT. PT REPOSITIONED REQUESTED. PT CURRENTLY SLEEPING WITH CPAP. PT IN NO DISTRESS. CALL LIGHT IN REACH.
[2018-11-14 05:23] LABS: International Normalized Ratio 1.89; Prothrombin Time Results 18.9 Sec (9.7-11.5)
[2018-11-14 05:32] LABS: Magnesium, Blood 2.2 mg/dL (1.6-2.4)
[2018-11-14 05:38] LABS: Albumin, Blood 2.3 g/dL (3.4-5.0); Anion Gap 6 mmol/L (6-16); Blood Urea Nitrogen 73 mg/dL (8-24); CO2, Blood 34 mmol/L (21-32); Calcium, Blood 8.2 mg/dL (8.5-10.1); Chloride, Blood 97 mmol/L (98-108); Creatinine, Blood 1.43 mg/dL (0.40-1.00); Glomerular Filtration Rate 38 (60-); Glucose, Blood 117 mg/dL (70-99); Phosphorus, Blood 3.7 mg/dL (2.5-4.9); Potassium, Blood 3.8 mmol/L (3.5-5.5); Sodium, Blood 137 mmol/L (136-145)
--- NOTE | 2018-11-14 17:52 | NUR ---
SHIFT SUMMARY PT UP TO CHAIR THIS SHIFT VIA [facility] LIFT. PT WORKED IN BED WITH PHYSICAL THERAPY THIS SHIFT. PLAN TO DC TO SNF WHEN MEDICALLY STABLE. PICS TAKEN OF PT BLISTERS FOR COMPARISION. PT CONTINUES TO BE TACHY WITH A HR IN THE 110S. OTHER VITALS STABLE. WILL CONTINUE TO MONITOR UNTIL TURNOVER IS COMPLETE.
--- NOTE | 2018-11-15 06:21 | NUR ---
YARD SWITCH OPERATOR SUMMARY NO ACUTE CHANGES THIS SHIFT. PT AAOX4 AND PLEASANT. MOSTLY BED BOUND BUT IS ABLE TO PROVIDE SOME ASSISTANCE WITH REPOSITIONING. CONTINUES ON IV ABX. DENIES PAIN, SOB, N/V. VSS, WILL CONTINUE TO MONITOR.
[2018-11-15 06:42] LABS: Hematocrit 35.6 % (33.0-51.0); Hemoglobin 11.7 g/dL (11.5-16.0)
[2018-11-15 06:47] LABS: International Normalized Ratio 2.23
[2018-11-15 06:48] LABS: Albumin, Blood 2.4 g/dL (3.4-5.0); Anion Gap 4 mmol/L (6-16); Blood Urea Nitrogen 70 mg/dL (8-24); Bun/Creatinine Ratio 51.5 (12.0-20.0); CO2, Blood 38 mmol/L (21-32); Calcium, Blood 8.2 mg/dL (8.5-10.1); Chloride, Blood 100 mmol/L (98-108); Creatinine, Blood 1.36 mg/dL (0.40-1.00); Glomerular Filtration Rate 41 (60-); Glucose, Blood 73 mg/dL (70-99); Magnesium, Blood 2.3 mg/dL (1.6-2.4); Phosphorus, Blood 3.6 mg/dL (2.5-4.9); Potassium, Blood 3.3 mmol/L (3.5-5.5); Sodium, Blood 142 mmol/L (136-145)
[2018-11-15 09:22] LABS: BASOPHILS ABSOLUTE AUTO 0.01 K/mm3 (0.00-0.23); BASOPHILS PERCENT AUTO 0 % (0-2); EOSINOPHILS PERCENT AUTO 0 % (0-6); Hematocrit 36.5 % (33.0-51.0); Hemoglobin 11.7 g/dL (11.5-16.0); IMMATURE GRAN PERCENT AUTO 1 % (0-1); LYMPHOCYTES ABSOLUTE AUTO 1.23 K/mm3 (0.84-5.20); LYMPHOCYTES PERCENT AUTO 12 % (21-46); MONOCYTES ABSOLUTE AUTO 0.35 K/mm3 (0.16-1.47); MONOCYTES PERCENT AUTO 3 % (4-13); Mean Corpuscular HGB 31.4 pg (26.0-34.0); Mean Corpuscular HGB Conc 32.1 g/dL (31.5-36.5); NEUTROPHILS ABSOLUTE AUTO 8.96 K/mm3 (1.96-9.15); NEUTROPHILS PERCENT AUTO 84 % (41-73); NRBC Auto 0.9 /100 WBC (0.0-0.2); Platelet Count 108 K/mm3 (150-400); RDW Coefficient Variation 16.8 % (11.7-14.2); Red Blood Cell Count 3.73 M/mm3 (3.80-5.20); White Blood Cell Count 10.65 K/mm3 (4.00-11.30)
[2018-11-15 09:25] LABS: Mean Corpuscular Volume 98 fL (80-100)
--- NOTE | 2018-11-15 17:50 | NUR ---
PT ALERT AND ORIENTED THROUGHOUT THIS SHIFT. PT HAS HAD FAMILY VISITING DURING THIS SHIFT. P/T WORKED WITH THE PT THIS AM AND PROVIDED EXERCISES FOR THE PT TO PERFORM IN BED. PT ENCOURAGED BY FAMILY TO CONTINUE WORKING ON THE EXERCISES. PT TOLERATING THEM WELL. PT COOPERATIVE WITH CARE. PT UP TO BEDSIDE CAMODE USING LIFT DURING THIS SHIFT. PT CONTINUES ON 4L OF O2 WITH NO RESPIRATORY DISTRESS. PT STATES NO ADDITIONAL NEEDS AT THIS TIME. CALL LIGHT WITHIN REACH. WILL CONTINUE TO MONITOR.
[2018-11-16 05:03] LABS: Hematocrit 39.1 % (33.0-51.0); Hemoglobin 12.5 g/dL (11.5-16.0)
[2018-11-16 05:17] LABS: Albumin, Blood 2.5 g/dL (3.4-5.0); Anion Gap 4 mmol/L (6-16); Blood Urea Nitrogen 68 mg/dL (8-24); Bun/Creatinine Ratio 48.9 (12.0-20.0); CO2, Blood 39 mmol/L (21-32); Calcium, Blood 8.3 mg/dL (8.5-10.1); Chloride, Blood 101 mmol/L (98-108); Creatinine, Blood 1.39 mg/dL (0.40-1.00); Glomerular Filtration Rate 40 (60-); Glucose, Blood 63 mg/dL (70-99); Magnesium, Blood 2.3 mg/dL (1.6-2.4); Potassium, Blood 3.4 mmol/L (3.5-5.5); Sodium, Blood 144 mmol/L (136-145)
[2018-11-16 05:19] LABS: International Normalized Ratio 2.63; Prothrombin Time Results 25.5 Sec (9.7-11.5)
--- NOTE | 2018-11-16 07:35 | NUR ---
SHIFT SUMMARY NO ACUTE EVENTS OVERNIGHT. PATIENT BLE WERE WRAPPED WITH GAUZE AND [place] WRAP. VISUALIZED LARGE BLISTERS ON BOTH LEGS SOME THAT WERE OPEN AND WEEPING. PATEINT SLEPT MAJORITY OF NIGHT ON CPAP. 4L NC. PATIENT HAD BM BUT STATED SHE STILL FELT "FULL". PATIENT COMPLAINED OF URINE LEAKING AROUND PATEL CATHETER, REPOSITIONED PATEL TUBING AND BAG ON BED AND IMMEDIATELY DRAINED >600ML OF URINE FROM BLADDER. Q2 TURN. LIFT REQUIRED TO GET PATIENT UP. REPORT GIVEN TO DAY SHIFT RN.
--- NOTE | 2018-11-16 17:58 | NUR ---
SHIFT SUMMARY PATIENT ORIENTED X4. DENIES PAIN, SOB, NAUSEA. LEG WRAPS IN PLACE. PT WANTED MORE TO DRINK BUT STAYED WITHIN FLUID RESTRICTION. PATIENT TURNED SEVERAL TIMES THROUGH SHIFT, PT HAD 2 BMS. PATIENT MOVED TO CHAIR WITH LIFT FOR DINNER. STERILE DRESSING CHANGE COMPLETED TO R ARM PICC LINE. NC 02 DECREASED TO 3L O2, SPO2 STAYED ABOVE 95% WHILE SITTING IN CHAIR. HEART RHYTHM STILL AFIB, RATE IS HIGHER TODAY, DR ALLRED ORDERED SOME METOPROLOL. BLOOD SUGARS CONTROLLED. PATEL DRAINING WELL WITHOUT MUCH LEAKAGE.
--- NOTE | 2018-11-17 05:48 | NUR ---
SHIFT SUMMARY NO ACUTE EVENTS OVERNIGHT. PATIENT CONTINUES TO COMPLAIN ABOUT NOT BEING ABLE TO HAVE A BM ALTHOUGH SHE HAD 2 LARGE FORMED BMs DURING SUPERVISOR REWORK. PATIENT WORE CPAP CONTINUOUS THROUGH NIGHT. PATIENT TURNED TO RIGHT SIDE MMULTIPLE TIMES. WILL CONTINUE TO MONITOR AND REPORT TO ONCOMING SHIFT
[2018-11-17 06:35] LABS: BASOPHILS ABSOLUTE AUTO 0.01 K/mm3 (0.00-0.23); BASOPHILS PERCENT AUTO 0 % (0-2); EOSINOPHILS ABSOLUTE AUTO 0.02 K/mm3 (0.00-0.68); EOSINOPHILS PERCENT AUTO 0 % (0-6); Hematocrit 37.8 % (33.0-51.0); Hemoglobin 12.4 g/dL (11.5-16.0); IMMATURE GRAN ABSOLUTE AUTO 0.07 K/mm3 (0.00-0.10); IMMATURE GRAN PERCENT AUTO 1 % (0-1); LYMPHOCYTES ABSOLUTE AUTO 2.85 K/mm3 (0.84-5.20); LYMPHOCYTES PERCENT AUTO 22 % (21-46); MONOCYTES ABSOLUTE AUTO 0.69 K/mm3 (0.16-1.47); MONOCYTES PERCENT AUTO 5 % (4-13); Mean Corpuscular HGB 31.9 pg (26.0-34.0); Mean Corpuscular HGB Conc 32.8 g/dL (31.5-36.5); Mean Corpuscular Volume 97 fL (80-100); Mean Platelet Volume 12.4 fL (9.1-12.4); NEUTROPHILS ABSOLUTE AUTO 9.25 K/mm3 (1.96-9.15); NEUTROPHILS PERCENT AUTO 72 % (41-73); Platelet Count 140 K/mm3 (150-400); RDW Coefficient Variation 17.9 % (11.7-14.2); Red Blood Cell Count 3.89 M/mm3 (3.80-5.20); White Blood Cell Count 12.89 K/mm3 (4.00-11.30)
[2018-11-17 06:51] LABS: International Normalized Ratio 3.12; Prothrombin Time Results 29.8 Sec (9.7-11.5)
[2018-11-17 06:54] LABS: Magnesium, Blood 2.2 mg/dL (1.6-2.4)
[2018-11-17 06:59] LABS: Albumin, Blood 2.3 g/dL (3.4-5.0); Anion Gap 4 mmol/L (6-16); Blood Urea Nitrogen 58 mg/dL (8-24); Bun/Creatinine Ratio 44.3 (12.0-20.0); CO2, Blood 39 mmol/L (21-32); Calcium, Blood 8.2 mg/dL (8.5-10.1); Chloride, Blood 103 mmol/L (98-108); Creatinine, Blood 1.31 mg/dL (0.40-1.00); Glomerular Filtration Rate 42 (60-); Glucose, Blood 42 mg/dL (70-99); Phosphorus, Blood 2.7 mg/dL (2.5-4.9); Potassium, Blood 3.7 mmol/L (3.5-5.5); Sodium, Blood 146 mmol/L (136-145)
--- NOTE | 2018-11-17 17:04 | NUR ---
SHIFT SUMMARY. A&OX3, PLEASANT, COOPERATIVE, AWARE OF LIMIATIONS, NO SAFETY CONCERNS. PT DENIES SOB, LUNGS CLEAR, CONTINUES WITH 3L O2 NC, USES CPAP INTERMITTENTLY DURING SHIFT. PT DENIES N/V, GOOD MEAL INTAKE, PT REPORTS FEELING THIRSTY SECONDARY TO FLUID RESTRICTION, PT SUPPLIED WITH ORAL CARE SUPPLIES AND GLYCERIN SWAPS. PT C/O PAIN TO BACK AND NECK SECONDARY TO LAYING IN BED, PAIN MANAGED WELL WITH APAP. BLE CLEANSED, NON ADHERERNT PADS, KERLEX, AND FRANCHESKA WRAPS LIGHTLY PLACED FROM TOES TO BELOW KNEES, PT TOLERATED WELL. NO NEW CHANGES OR CONCERNS.
[2018-11-18 05:37] LABS: BASOPHILS ABSOLUTE AUTO 0.01 K/mm3 (0.00-0.23); BASOPHILS PERCENT AUTO 0 % (0-2); EOSINOPHILS PERCENT AUTO 0 % (0-6); Hematocrit 36.7 % (33.0-51.0); Hemoglobin 11.6 g/dL (11.5-16.0); IMMATURE GRAN ABSOLUTE AUTO 0.04 K/mm3 (0.00-0.10); IMMATURE GRAN PERCENT AUTO 1 % (0-1); LYMPHOCYTES ABSOLUTE AUTO 0.81 K/mm3 (0.84-5.20); LYMPHOCYTES PERCENT AUTO 11 % (21-46); MONOCYTES ABSOLUTE AUTO 0.41 K/mm3 (0.16-1.47); MONOCYTES PERCENT AUTO 6 % (4-13); Mean Corpuscular HGB Conc 31.6 g/dL (31.5-36.5); Mean Corpuscular Volume 98 fL (80-100); Mean Platelet Volume 12.5 fL (9.1-12.4); NEUTROPHILS ABSOLUTE AUTO 5.89 K/mm3 (1.96-9.15); NEUTROPHILS PERCENT AUTO 82 % (41-73); Platelet Count 118 K/mm3 (150-400); RDW Coefficient Variation 17.7 % (11.7-14.2); RDW Standard Deviation 57.7 fL (35.1-46.3); Red Blood Cell Count 3.74 M/mm3 (3.80-5.20); White Blood Cell Count 7.16 K/mm3 (4.00-11.30)
[2018-11-18 05:42] LABS: International Normalized Ratio 2.98; Prothrombin Time Results 28.6 Sec (9.7-11.5)
--- NOTE | 2018-11-18 05:54 | NUR ---
PROFESSOR OF BUSINESS ADMINISTRATION SUMMARY NO ACUTE CHANGES THIS SHIFT. PT AAOX4 AND PLEASANT. PT DENIES PAIN. REMAINS ON 4L O2 VIA NC. 2 ASSIST WITH TURNS AND CHANGES. PT HAD SMALL BM THIS AM. DENIES PAIN. VSS, WILL CONTINUE TO MONITOR.
[2018-11-18 05:57] LABS: Albumin, Blood 2.2 g/dL (3.4-5.0); Anion Gap 3 mmol/L (6-16); Blood Urea Nitrogen 57 mg/dL (8-24); Bun/Creatinine Ratio 45.2 (12.0-20.0); CO2, Blood 40 mmol/L (21-32); Chloride, Blood 101 mmol/L (98-108); Creatinine, Blood 1.26 mg/dL (0.40-1.00); Glomerular Filtration Rate 44 (60-); Glucose, Blood 111 mg/dL (70-99); Magnesium, Blood 2.3 mg/dL (1.6-2.4); Phosphorus, Blood 3.1 mg/dL (2.5-4.9); Potassium, Blood 3.5 mmol/L (3.5-5.5); Sodium, Blood 144 mmol/L (136-145)
--- NOTE | 2018-11-18 18:43 | NUR ---
SHIFT SUMMARY. AOX3, LIFT PATIENT, PATIENT AWARE OF LIMITATIONS AND CALLS APPROPRIATELY. NO SAFETY CONCERNS. PATIENT REPORTED 2/10 PAIN TO LOWER BACK, APAP ADMINISTERED AND EFFECTIVE. RESTING WELL IN BED. PATEL CATHETER DRAINING CLEAR YELLOW URINE WITHOUT CONCERN. FLUID RESTRICTION FOLLOWED PER ORDER. DENIES N/V. DENIES SOB, LUNGS DIMINISHED TO ALL LOBES, O2 STABLE 3L NC.
--- NOTE | 2018-11-19 00:30 | NUR ---
1915: ASSUMED CARE OF PATIENT. PATIENT LAYING BED AND IN NO APPARENT DISTRESS. DENIES PAIN, N/V/D BED LOW AND LOCKED. CALL WILHELM WITHIN REACH. 2029: ASSESSMENT COMPLETED. BRUISING PRESENT TO B/L UE's AND R ABDOMEN. 2329: CHANGED LINENS. PATIENT HAD A SMALL BM. BROWN, APPLIED BLUE CREAM TO GLUTEL FOLD. EMPTIED PATEL OF 1800 ML YELLOW URINE. DISCUSSED WITH PATIENT WILL REMOVE PATEL EARLY IN AM. RECHECK TELEMETRY - AFIB @85 BPM.
[2018-11-19 05:17] LABS: BASOPHILS PERCENT AUTO 0 % (0-2); EOSINOPHILS ABSOLUTE AUTO 0.02 K/mm3 (0.00-0.68); EOSINOPHILS PERCENT AUTO 0 % (0-6); Hematocrit 36.9 % (33.0-51.0); Hemoglobin 11.6 g/dL (11.5-16.0); IMMATURE GRAN ABSOLUTE AUTO 0.02 K/mm3 (0.00-0.10); IMMATURE GRAN PERCENT AUTO 0 % (0-1); LYMPHOCYTES ABSOLUTE AUTO 1.02 K/mm3 (0.84-5.20); LYMPHOCYTES PERCENT AUTO 14 % (21-46); MONOCYTES ABSOLUTE AUTO 0.51 K/mm3 (0.16-1.47); MONOCYTES PERCENT AUTO 7 % (4-13); Mean Corpuscular HGB 31.6 pg (26.0-34.0); Mean Corpuscular HGB Conc 31.4 g/dL (31.5-36.5); Mean Platelet Volume 12.3 fL (9.1-12.4); NEUTROPHILS PERCENT AUTO 78 % (41-73); Platelet Count 119 K/mm3 (150-400); RDW Coefficient Variation 17.4 % (11.7-14.2); RDW Standard Deviation 60.9 fL (35.1-46.3); Red Blood Cell Count 3.67 M/mm3 (3.80-5.20); White Blood Cell Count 7.07 K/mm3 (4.00-11.30)
[2018-11-19 05:20] LABS: Mean Corpuscular Volume 101 fL (80-100)
[2018-11-19 05:28] LABS: International Normalized Ratio 2.82; Prothrombin Time Results 27.2 Sec (9.7-11.5)
[2018-11-19 05:39] LABS: Albumin, Blood 2.2 g/dL (3.4-5.0); Albumin/Globulin Ratio 0.8 (0.8-1.8); Bilirubin, Total 1.2 mg/dL (0.1-1.0); Bun/Creatinine Ratio 43.3 (12.0-20.0); Calcium, Blood 8.1 mg/dL (8.5-10.1); Creatinine, Blood 1.34 mg/dL (0.40-1.00); Globulin, Blood 2.9 g/dL (2.2-4.0); Magnesium, Blood 2.2 mg/dL (1.6-2.4); Phosphorus, Blood 2.6 mg/dL (2.5-4.9); Potassium, Blood 3.3 mmol/L (3.5-5.5); Total Protein, Blood 5.1 g/dL (6.4-8.2)
--- NOTE | 2018-11-19 11:33 | NUR ---
NOC RN REPORT THAT SHE D/C [facility] THIS AM PER DR REQUEST. UNCHARTED.
--- NOTE | 2018-11-19 15:39 | NUR ---
SUMMARY PT IS A/O X4, PLEASANT AFFECT, STATE SOMEWHAT DEPRESSED/CONCERNED R/T CURRENT CONDITION, STATES UNABLE TO BR WT OR AMBULATE @ THIS TIME. HX MULT MYELOMA. WBC WNL THIS AM, SHE IS AFEBRILE. INR 2.82, PHARMACY DOSE COUMADIN FOR THIS EVENING. IV DIURETIC CONTINUE, GOOD URINE OUTPUT TODAY, GFR 41. SHE HAS BEEN USING BEDPAN. PICC PATENT X 3 PORTS. K+ LOW @ 3.3, SHE GOT IV SUPPLEMENT THIS AM. WATER BLISTERS BLE, DRSG CHANGED TODAY. BIOX 93% RA, VSS. PT ASSISTED UP TO CHAIR VIA LIFT THIS AFTERNOON.
--- NOTE | 2018-11-20 05:20 | NUR ---
SHIFT SUMMARY PT HAS VOIDED FREQUENTLY THIS SHIFT, AND HAS REQUIRED MUTIPLE LINEN CHANGES. LASIKS GIVEN JUST SHORTLY BEFORE SHIFT CHANGE. THE MULTIPLE LINEN CHANGES HAVE TAKEN A LOT OUT OF PT AND SHE WOULD LIKE TO SPEAK WITH HER DRRoopa ABOUT POSSIBLY DECREASING THE DOSE. PT HAS BEEN COMPLIANT WITH 1200 ML FLUID RESTRICTION. +2-3 PITTING EDEMA TO BLE. PT PAINFUL WITH MOVEMENT, BUT DENIES PAIN AT REST. VITALS STABLE. PT HAS BEEN ABLE TO GET SOME REST THIS SHIFT BETWEEN LINEN CHANGES. NO ACUTE CHANGES OVERNIGHT. WILL CONTINUE TO MONITOR AND REPORT TO ONCOMING RN.
[2018-11-20 05:21] LABS: Hematocrit 38.1 % (33.0-51.0)
[2018-11-20 05:53] LABS: International Normalized Ratio 3.24; Prothrombin Time Results 30.9 Sec (9.7-11.5)
[2018-11-20 05:54] LABS: Albumin, Blood 2.3 g/dL (3.4-5.0); Albumin/Globulin Ratio 0.7 (0.8-1.8); Bilirubin, Total 1.3 mg/dL (0.1-1.0); Bun/Creatinine Ratio 43.2 (12.0-20.0); Calcium, Blood 8.1 mg/dL (8.5-10.1); Creatinine, Blood 1.25 mg/dL (0.40-1.00); Globulin, Blood 3.1 g/dL (2.2-4.0); Magnesium, Blood 2.1 mg/dL (1.6-2.4); Phosphorus, Blood 2.5 mg/dL (2.5-4.9); Potassium, Blood 3.2 mmol/L (3.5-5.5); Total Protein, Blood 5.4 g/dL (6.4-8.2)
--- NOTE | 2018-11-20 17:27 | NUR ---
SUMMARY PT IS A/O X4, PLEASANT AFFECT, STATE CONTINUING WEAKNESS/FATIGUE, BEDREST DISCOMFORT, PRN TYLENOL GIVEN. SHE CONTINUES UNABLE TO AMBULATE, LIFT PT, SHE DECLINES OOB TO CHAIR TODAY, PHY THER CONTINUES. DR ADAM ORDER CT PELVIS THIS AM, POSS PERF DIVERTICULUM, SURG CONSULT ORDERED, DR CONDON ANS SERV NOTIFIED. GFR 45, K+ LOW @ 3.2, DR GUSMAN MANAGING RENAL FX, ORDER K-RIDER THIS AM, BLE EDEMA 3+, IV DIURETIC CONTINUES. SHE CONTINUES AFIB/TELE, INR 3.2, NO WARFARIN ORDERED FOR TODAY. VSS.
[2018-11-21 05:20] LABS: Hematocrit 38.5 % (33.0-51.0); Hemoglobin 12.3 g/dL (11.5-16.0)
[2018-11-21 05:34] LABS: International Normalized Ratio 3.57; Prothrombin Time Results 33.7 Sec (9.7-11.5)
[2018-11-21 05:39] LABS: Albumin, Blood 2.3 g/dL (3.4-5.0); Anion Gap 3 mmol/L (6-16); Blood Urea Nitrogen 54 mg/dL (8-24); CO2, Blood 42 mmol/L (21-32); Calcium, Blood 8.2 mg/dL (8.5-10.1); Chloride, Blood 96 mmol/L (98-108); Creatinine, Blood 1.15 mg/dL (0.40-1.00); Glomerular Filtration Rate 49 (60-); Glucose, Blood 121 mg/dL (70-99); Magnesium, Blood 2.1 mg/dL (1.6-2.4); Phosphorus, Blood 2.5 mg/dL (2.5-4.9); Potassium, Blood 3.3 mmol/L (3.5-5.5); Sodium, Blood 141 mmol/L (136-145)
--- NOTE | 2018-11-21 06:40 | NUR ---
SHIFT SUMMARY PT HAS RESTED ON AND OFF T/O THE NOC. SHE HAS VOIDED FREQUENTLY A RESULT OF IV LASIKS. SHE HAS REQUIRED FREQUENT LINEN CHANGES A RESULT. PT PAINFUL WITH MOVEMENT AND OCCASIONALLY HAS SPASMS IN HER BACK. PAIN IS RELIEVED WITH TYLENOL PER EMAR. DRGS TO BLE CHANGED THIS SHIFT. BLISERS REMAIN TO BLE WITH WEEPING. VITALS HAVE BEEN STABLE. ASSESSMENT UNCHANGED. WILL CONTINUE TO MONITOR AND REPORT TO ONCOMING RN.
[2018-11-21 08:25] LABS: BASOPHILS ABSOLUTE AUTO 0.01 K/mm3 (0.00-0.23); BASOPHILS PERCENT AUTO 0 % (0-2); EOSINOPHILS ABSOLUTE AUTO 0.03 K/mm3 (0.00-0.68); EOSINOPHILS PERCENT AUTO 1 % (0-6); Hematocrit 38.8 % (33.0-51.0); Hemoglobin 12.3 g/dL (11.5-16.0); IMMATURE GRAN ABSOLUTE AUTO 0.03 K/mm3 (0.00-0.10); IMMATURE GRAN PERCENT AUTO 1 % (0-1); LYMPHOCYTES ABSOLUTE AUTO 0.84 K/mm3 (0.84-5.20); LYMPHOCYTES PERCENT AUTO 16 % (21-46); MONOCYTES ABSOLUTE AUTO 0.57 K/mm3 (0.16-1.47); MONOCYTES PERCENT AUTO 11 % (4-13); Mean Corpuscular HGB 31.7 pg (26.0-34.0); Mean Corpuscular HGB Conc 31.7 g/dL (31.5-36.5); Mean Corpuscular Volume 100 fL (80-100); Mean Platelet Volume 12.1 fL (9.1-12.4); NEUTROPHILS ABSOLUTE AUTO 3.76 K/mm3 (1.96-9.15); NEUTROPHILS PERCENT AUTO 72 % (41-73); Platelet Count 125 K/mm3 (150-400); RDW Coefficient Variation 17.3 % (11.7-14.2); RDW Standard Deviation 58.8 fL (35.1-46.3); Red Blood Cell Count 3.88 M/mm3 (3.80-5.20); White Blood Cell Count 5.24 K/mm3 (4.00-11.30)
--- NOTE | 2018-11-21 11:32 | NUR ---
1030 SPOKE WITH PT'S DAUGHTER, LUKASZ, AND GAVE UPDATE ON CURRENT STATUS AND PLAN OF CARE. LUKASZ REQUESTED TO SPEAK WITH MD. DR. RIVERA NOTIFIED AND LUKASZ'S PHONE NUMBER GIVEN.
--- NOTE | 2018-11-21 13:40 | NUR ---
DRESSING CHANGE COMPLETED TO BLE. MINIMAL SEROUS DRAINAGE TO RLE, OPEN BLISTER TO POSTERIOR RLE. PT TOLERATED WELL.
--- NOTE | 2018-11-21 17:55 | NUR ---
SHIFT SUMMARY. A&OX4, PT IS LIFT PT, INTERTERMITTENT INCONTINENCE, BREIF IN PLACE. PT IS AWARE OF LIMIATIONS, NO SAFETY CONCERNS. PT WITH PAIN TO HIPS AND BACK MANAGED WELL WITH PRN APAP. PT DENIES N/V, SOB. PT STARTED NPO WITH ADDITION OF CPN VIA PICC AFTER SURGICAL AND SCHOOL CHILD CARE ATTENDANT CONSULT. PT SELPT MOST OF THE DAY, DID NOT PARTICIPATE WITH PT/OT.
--- NOTE | 2018-11-21 22:14 | NUR ---
PT HAD ANOTHER SMALL BM. INCONTINENT. PERICARE GIVEN.
--- NOTE | 2018-11-22 04:41 | NUR ---
SHIFT SUMMARY: PT RESTED WELL WITH CPAP IN PLACE. MED ONCE FOR BACK PAIN WITH TYLENOL WITH FAIR RELIEF. NO OTHER COMPLAINTS. SEVERAL SMALL BOWEL MOVEMENTS AND VOIDS USING BEDPAN, BARRIER CREAM APPLIED TO BUTTOCKS. LIFT PT. BLE DRSG INTACT. TPN INFUSING AT 85 MLS/HR VIA PICC, CBG AT MIDNIGHT 155, 3 UNIT REGULAR INSULIN GIVEN PER MEDIUM SLIDING SCALE. NO ACUTE CHANGES. WILL CONTINUE TO MONITOR AND PROVIDE CARE UNTIL SHIFT REPORT.
[2018-11-22 05:28] LABS: BASOPHILS ABSOLUTE AUTO 0.01 K/mm3 (0.00-0.23); BASOPHILS PERCENT AUTO 0 % (0-2); EOSINOPHILS ABSOLUTE AUTO 0.07 K/mm3 (0.00-0.68); EOSINOPHILS PERCENT AUTO 1 % (0-6); Hematocrit 39.7 % (33.0-51.0); Hemoglobin 12.6 g/dL (11.5-16.0); IMMATURE GRAN ABSOLUTE AUTO 0.03 K/mm3 (0.00-0.10); IMMATURE GRAN PERCENT AUTO 0 % (0-1); LYMPHOCYTES ABSOLUTE AUTO 1.19 K/mm3 (0.84-5.20); LYMPHOCYTES PERCENT AUTO 18 % (21-46); MONOCYTES ABSOLUTE AUTO 0.66 K/mm3 (0.16-1.47); MONOCYTES PERCENT AUTO 10 % (4-13); Mean Corpuscular HGB 31.5 pg (26.0-34.0); Mean Corpuscular HGB Conc 31.7 g/dL (31.5-36.5); Mean Corpuscular Volume 99 fL (80-100); Mean Platelet Volume 12.2 fL (9.1-12.4); NEUTROPHILS ABSOLUTE AUTO 4.71 K/mm3 (1.96-9.15); NEUTROPHILS PERCENT AUTO 71 % (41-73); NRBC ABSOLUTE 0.02 K/mm3 (0.00-0.02); NRBC Auto 0.3 /100 WBC (0.0-0.2); Platelet Count 128 K/mm3 (150-400); RDW Coefficient Variation 17.6 % (11.7-14.2); RDW Standard Deviation 60.6 fL (35.1-46.3); White Blood Cell Count 6.67 K/mm3 (4.00-11.30)
[2018-11-22 05:39] LABS: International Normalized Ratio 2.79; Prothrombin Time Results 26.9 Sec (9.7-11.5)
[2018-11-22 05:48] LABS: Alanine Aminotransfer (ALT/SGP 12 U/L (12-78); Albumin, Blood 2.2 g/dL (3.4-5.0); Albumin/Globulin Ratio 0.7 (0.8-1.8); Alk Phos 105 U/L (50-136); Anion Gap 4 mmol/L (6-16); Aspartate Aminotrans (AST/SGOT 28 U/L (12-37); Bilirubin, Total 1.5 mg/dL (0.1-1.0); Blood Urea Nitrogen 53 mg/dL (8-24); Bun/Creatinine Ratio 43.8 (12.0-20.0); CO2, Blood 42 mmol/L (21-32); Calcium, Blood 8.4 mg/dL (8.5-10.1); Chloride, Blood 96 mmol/L (98-108); Creatinine, Blood 1.21 mg/dL (0.40-1.00); Globulin, Blood 3.3 g/dL (2.2-4.0); Glomerular Filtration Rate 46 (60-); Glucose, Blood 124 mg/dL (70-99); Magnesium, Blood 2.1 mg/dL (1.6-2.4); Phosphorus, Blood 2.9 mg/dL (2.5-4.9); Potassium, Blood 3.7 mmol/L (3.5-5.5); Sodium, Blood 142 mmol/L (136-145); Total Protein, Blood 5.5 g/dL (6.4-8.2); Triglycerides 142 mg/dL (30-160)
--- NOTE | 2018-11-22 18:14 | NUR ---
SHIFT SUMMARY. A&OX4, 2 MAX ASSIST WITH FWW AND GB TO BSC THIS EVENING. CT ABD COMPLETED. PT CONTINUES WITH C/O BACK PAIN, MANAGED WELL WITH PRN APAP, HEATING PAD APPLIED. PT DENIES SOB, N/V. PT REPORTS HUNGER. CONTINUES WITH TPN. NO REDNESS TO MOUTH, DR. RIVERA NOTIFIED, RECIEVED ORDERS TO D/C NYSTATIN. NO NEW CHANGES OR CONCERNS.
[2018-11-23 05:11] LABS: Hematocrit 39.8 % (33.0-51.0); Hemoglobin 12.8 g/dL (11.5-16.0)
[2018-11-23 05:25] LABS: International Normalized Ratio 2.03; Prothrombin Time Results 20.2 Sec (9.7-11.5)
[2018-11-23 05:29] LABS: Albumin, Blood 2.3 g/dL (3.4-5.0); Anion Gap 2 mmol/L (6-16); Blood Urea Nitrogen 55 mg/dL (8-24); Bun/Creatinine Ratio 40.7 (12.0-20.0); CO2, Blood 42 mmol/L (21-32); Calcium, Blood 8.6 mg/dL (8.5-10.1); Chloride, Blood 96 mmol/L (98-108); Creatinine, Blood 1.35 mg/dL (0.40-1.00); Glomerular Filtration Rate 41 (60-); Glucose, Blood 125 mg/dL (70-99); Magnesium, Blood 2.2 mg/dL (1.6-2.4); Phosphorus, Blood 3.6 mg/dL (2.5-4.9); Potassium, Blood 3.8 mmol/L (3.5-5.5); Sodium, Blood 140 mmol/L (136-145)
--- NOTE | 2018-11-23 08:09 | NUR ---
Rn summary: Patient is alert and oriented. Patient is able to turn to side for linen change and attends change. Patient did have increased muscle spasms . Tylenol 650 mg given and was helpful. Pt has more pain when raises HOB. Pt continues with TPN and IV antibiotics as ordered. Pt has voided 10 times this shift. Pt did not sleep much this shift. Drsg to lower extremities clean dry and intact. Call light in reach. Cont Biox O2 3 liters.
--- NOTE | 2018-11-23 17:49 | NUR ---
PT A/O THROUGHOUT THIS SHIFT. PT HAS BEEN RESTING IN BED DURING THIS SHIFT. PT HAS NEW LOWER BACK PAIN DUE TO L3 DISK INJURY. PT STATES PAIN ONLY UPON MOVEMENT AND DENIES PAIN AT REST. PT DIET ADVANCED TO CLEAR LIQUID THEN FULL LIQUID DURING THIS SHIFT, PT TOLERATED WELL. PT CONTINUES ON PARENTERAL NUTRITION. PT USES CALL LIGHT APPROPRIATELY AND USES BED AMAYA FOR VOIDING. PT STATES NO ADDITIONAL NEEDS AT THIS TIME. CALL LIGHT IN REACH. WILL CONTINUE TO MONITOR.
[2018-11-24 04:50] LABS: Hematocrit 39.6 % (33.0-51.0); Hemoglobin 12.6 g/dL (11.5-16.0)
[2018-11-24 05:22] LABS: International Normalized Ratio 1.93; Prothrombin Time Results 19.3 Sec (9.7-11.5)
[2018-11-24 05:36] LABS: Albumin, Blood 2.2 g/dL (3.4-5.0); Anion Gap 6 mmol/L (6-16); Blood Urea Nitrogen 57 mg/dL (8-24); Bun/Creatinine Ratio 42.2 (12.0-20.0); CO2, Blood 39 mmol/L (21-32); Calcium, Blood 8.5 mg/dL (8.5-10.1); Chloride, Blood 94 mmol/L (98-108); Creatinine, Blood 1.35 mg/dL (0.40-1.00); Glomerular Filtration Rate 41 (60-); Glucose, Blood 121 mg/dL (70-99); Magnesium, Blood 2.1 mg/dL (1.6-2.4); Phosphorus, Blood 4.1 mg/dL (2.5-4.9); Potassium, Blood 3.6 mmol/L (3.5-5.5); Sodium, Blood 139 mmol/L (136-145)
--- NOTE | 2018-11-24 07:12 | NUR ---
pt with L3 compression fracture since admission. unable to raise head of bed due to pain. medicated with tylenol 650 mg x 1 for co back pain. PT on bioxx and needs cpap or oxgen to keep sats greater than 90%. PT incontient of bowel and bladder multiple times. 2 max assist for toileting on bedpan. DR Tod da silva bladder scan q 6 hrs prn and call if PVR greater than 250. Also get UA with C & S of indicated.
[2018-11-24 09:00] LABS: Appearance, Urine Clear (Clear); Bilirubin, Urine Neg (Neg); Blood, Urine Neg (Neg); Color, Urine Yellow (P-Yellow); Glucose Qualitative, Urine Neg (Neg); Ketones, Urine Neg (Neg); Leukocyte Esterase, Urine Neg (Neg); Nitrite, Urine Neg (Neg); Protein, Urine Neg (Neg); Urobilinogen, Urine 1+ (Normal)
--- NOTE | 2018-11-24 14:30 | NUR ---
RE-BANDAGED PTS LOWER LEGS. LEFT LEG HAS FEW SMALL <1 CM OPENED BLISTERS. BANDAGED WITH KERLEX AND FRANCHESKA WRAP. RT LEG HAS MULTIPLE LARGER DRIED OPENED BLISTERS UP TO APPROX. 3 CM. COVERED WITH OIL EMULSION DRESSING WRAPPED WITH KERLEX AND FRANCHESKA WRAP. SKIN HAS MINIMAL REDNESS AROUND WOUNDS. NO INFLAMATION NOTED.
--- NOTE | 2018-11-24 18:36 | NUR ---
PT ALERT AND ORIENTED THROUGHOUT THIS SHIFT. PT COMPLIANT WITH CARE. PT WORKED WITH PT/OT THIS SHIFT. WOUND DRESSINGS CHANGED THIS SHIFT. WOUNDS LOOKED GREATLY IMPROVED. PT VERBALIZED FRUSTRATION WITH HEALTH SITUATION THIS AM. PT MOOD GREATLY IMPROVED THIS AFTERNOON. PT ABLE TO PROVIDE ASSISTANCE WITH REPOSITIONING IN BED WITH SIGNS OF PAIN IN BACK WHEN ADJUSTING POSITION. PT CURRENTLY RESTING IN BED, CALL LIGHT IN REACH. WILL CONTINUE TO MONITOR.
[2018-11-25 05:21] LABS: Hematocrit 39.7 % (33.0-51.0); Hemoglobin 12.7 g/dL (11.5-16.0)
[2018-11-25 05:33] LABS: International Normalized Ratio 2.04; Prothrombin Time Results 20.3 Sec (9.7-11.5)
[2018-11-25 05:45] LABS: Albumin, Blood 2.2 g/dL (3.4-5.0); Anion Gap 6 mmol/L (6-16); Blood Urea Nitrogen 61 mg/dL (8-24); Bun/Creatinine Ratio 45.2 (12.0-20.0); CO2, Blood 36 mmol/L (21-32); Calcium, Blood 8.4 mg/dL (8.5-10.1); Chloride, Blood 92 mmol/L (98-108); Creatinine, Blood 1.35 mg/dL (0.40-1.00); Glomerular Filtration Rate 41 (60-); Glucose, Blood 105 mg/dL (70-99); Magnesium, Blood 2.2 mg/dL (1.6-2.4); Phosphorus, Blood 3.8 mg/dL (2.5-4.9); Potassium, Blood 3.6 mmol/L (3.5-5.5); Sodium, Blood 134 mmol/L (136-145)
--- NOTE | 2018-11-25 05:58 | NUR ---
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 PT has developed L3 compression fx which is painful with any movement. Tylenol 650 mg po x 2 given with mild helpful effect. PT continues on tpn via picc line for nutritional support. very poor appetite. Bilat LE wound care with blistered areas present. incontinent of large amts of urine, skin pale fragile eccymotic and has excoriation. continues on oxygen 3 l nc or per cpap.
--- NOTE | 2018-11-25 16:01 | NUR ---
CHANGED BANDAGES ON PT'S LEGS DUE TO UNCOVERED BLISTERS ON PT'S RIGHT LEG. KERLEX PLACED ON RT LEG, COVERED BY GAUZE WRAP, THEN FRANCHESKA BANDAGE. LEFT LEG WITHOUT OPEN WOUNDS, WRAPPED WITH GAUZE WRAP AND FRANCHESKA BANDAGE. PT'S DAUGHTER IN ROOM, STATED MUCH IMPROVEMENT OF LEG APPEARANCE OVER PREVIOUS VISIT. PT TOLERATED WELL.
--- NOTE | 2018-11-25 17:03 | NUR ---
PT ALERT AND ORIENTED THROUGHOUT THIS SHIFT. PT HAS PAIN UPON REPOSITIONING BUT DENIED NEED FOR TYLENOL. PT WORKED WITH PT/OT THIS SHIFT. PT'S DAUGHTER TO VISIT MULTIPLE TIMES THIS SHIFT. PT'S WOUND DRESSINGS CHANGED THIS SHIFT TO ADEQUATLY COVER NEW BLISTERS ABOVE WOUND DRESSINGS. PT AWAKE IN ROOM WITH DAUGHTER AT BEDSIDE. CALL LIGHT IN REACH. WILL CONTINUE TO MONITOR.
--- NOTE | 2018-11-26 03:47 | NUR ---
SHIFT SUMMARY PT HAD MULTIPLE VOIDS LAST NIGHT AND BOWEL MOVEMENTS. PT HAD COMPLAINTS OF BACK PAIN IN BEGINNING OF SHIFT TREATED WITH TYLENOL. NO OTHER COMPLAINTS THIS SHIFT. WILL CONTINUE TO MONITOR.
--- NOTE | 2018-11-26 04:07 | NUR ---
FLUID RESTRICTION DR. GUSMAN NOTED FLUID RESTRICITION FOR PT IN HIS NOTES. NO ORDERS OR PARAMETERS FOUND.
[2018-11-26 05:57] LABS: Hematocrit 39.2 % (33.0-51.0); Hemoglobin 12.7 g/dL (11.5-16.0)
[2018-11-26 06:10] LABS: Prothrombin Time Results 19.9 Sec (9.7-11.5)
[2018-11-26 06:11] LABS: Albumin, Blood 2.3 g/dL (3.4-5.0); Anion Gap 6 mmol/L (6-16); Blood Urea Nitrogen 68 mg/dL (8-24); CO2, Blood 35 mmol/L (21-32); Calcium, Blood 8.4 mg/dL (8.5-10.1); Chloride, Blood 95 mmol/L (98-108); Creatinine, Blood 1.58 mg/dL (0.40-1.00); Glomerular Filtration Rate 34 (60-); Glucose, Blood 94 mg/dL (70-99); Magnesium, Blood 2.2 mg/dL (1.6-2.4); Phosphorus, Blood 3.2 mg/dL (2.5-4.9); Potassium, Blood 3.5 mmol/L (3.5-5.5); Sodium, Blood 136 mmol/L (136-145)
[2018-11-26] MEDS ORDERED: Pedi-Dri 100,0060 GM TOP (12:22)
[2018-11-26] MEDS ORDERED: METO50ER PO (12:24)
[2018-11-26] MEDS ORDERED: ASPI81CH PO (12:25)
[2018-11-26] MEDS ORDERED: HYDCOR10 PO (12:25)
[2018-11-26] MEDS ORDERED: Calcitonin-Sal3.7 ML (12:28)
--- NOTE | 2018-11-26 14:04 | NUR ---
PT DISCHARGED PT DISCHARGED TO [facility]. PT IN STABLE CONDITION WITH VSS. PT PICC REMOVED & NO BLEEDING NOTED AT SITE. PT TRANSPORTED VIA GURNEY TO [facility]. PT WOUNDS DRESSED & PICS TAKEN PRIOR TO DC. NO CHANGES IN ASSESSMENT PRIOR TO DC. REPORT GIVEN TO [facility] NURSECHLOE. NO FURTHER QUESTIONS REQUIRED BY STAFF.
== END 2018-11-26 14:10 | DRG 871 ==
LOC: ER 04:48 → ICUE 07:58 → MEDS 07:58 → ERHOLD 07:58 → ICUE 11:21 → MEDS 11-12 16:56 → ENPENDDIS 11-26 10:40 → MEDS 11-26 14:10
PROVIDERS: Emergency Medicine; Hospitalist; Internal Medicine; Internal Medicine Critical Care Medicine; Internal Medicine Nephrology; Student in an Organized Health Care Education/Training Program; Surgery; ADMIT Internal Medicine Gastroenterology
PROC: 04HK33Z Insertion of Infusion Device into Right Femoral Artery, Percutaneous Approach (ICD-10-PCS; principal; 2018-11-07)
PROC: 02HV33Z Insertion of Infusion Device into Superior Vena Cava, Percutaneous Approach (ICD-10-PCS; 2018-11-07)
PROC: 3E0436Z Introduction of Nutritional Substance into Central Vein, Percutaneous Approach (ICD-10-PCS; 2018-11-07)
PROC: 3E033XZ Introduction of Vasopressor into Peripheral Vein, Percutaneous Approach (ICD-10-PCS; 2018-11-08)
DX: A41.01 Sepsis due to Methicillin susceptible Staphylococcus aureus (principal); R65.21 Severe sepsis with septic shock; E88.3 Tumor lysis syndrome; N17.0 Acute kidney failure with tubular necrosis; I50.33 Acute on chronic diastolic (congestive) heart failure; I48.20 Chronic atrial fibrillation, unspecified; C90.00 Multiple myeloma not having achieved remission; Z68.43 Body mass index [BMI] 50.0-59.9, adult; M48.56XA Collapsed vertebra, not elsewhere classified, lumbar region, initial encounter for fracture; N39.0 Urinary tract infection, site not specified; E46 Unspecified protein-calorie malnutrition; I13.0 Hypertensive heart and chronic kidney disease with heart failure and stage 1 through stage 4 chronic kidney disease, or unspecified chronic kidney disease; K57.20 Diverticulitis of large intestine with perforation and abscess without bleeding; E87.2 Acidosis; R79.89 Other specified abnormal findings of blood chemistry; G47.33 Obstructive sleep apnea (adult) (pediatric); R62.7 Adult failure to thrive; E66.01 Morbid (severe) obesity due to excess calories; F32.9 Major depressive disorder, single episode, unspecified; E78.00 Pure hypercholesterolemia, unspecified; E83.51 Hypocalcemia; E79.0 Hyperuricemia without signs of inflammatory arthritis and tophaceous disease; B96.4 Proteus (mirabilis) (morganii) as the cause of diseases classified elsewhere; D69.59 Other secondary thrombocytopenia; T45.1X5A Adverse effect of antineoplastic and immunosuppressive drugs, initial encounter; J44.9 Chronic obstructive pulmonary disease, unspecified; E11.22 Type 2 diabetes mellitus with diabetic chronic kidney disease; N18.3 Chronic kidney disease, stage 3 (moderate); I08.2 Rheumatic disorders of both aortic and tricuspid valves; M16.0 Bilateral primary osteoarthritis of hip
CPT/HCPCS: 36415; 36569; 36600; 36620; 51702; 71045; 72192; 74177; 76770; 80048; 80053; 80069; 81001; 81003; 82248; 82330; 82550; 82803; 82947; 83605; 83735; 83880; 84100; 84478; 84484; 84550; 85014; 85018; 85025; 85027; 85610; 85651; 85730; 87040; 87077; 87086; 87147; 87186; 88108; 93005; 93010; 93306; 94660; 94760; 94762; 96360; 96361; 97110; 97163; 97166; 97530; 97535; 99285-25; A9270; C1751; J0153; J0282; J0610; J0690; J1720; J1815; J1940; J2185; J2543; J3370; J3480; J7030; J7040; J7050; J7060; J7070; J7120; P9046; Q9967

== ENCOUNTER → 2018-12-08 | Outpatient (CLI) | payer MEDICARE ==
[~2018-12-08] MED LIST changes: +ASPI81CH PO; +Calcitonin-Sal3.7 ML; +DEXA4 PO; +DOXE10 PO; +HYDCOR10 PO; +LOSA25 PO; +METO50ER PO; +NEBI5 PO; +OLME5TAB PO; +OMEPRAZOLE20 MG PO; +Pedi-Dri 100,0060 GM TOP; +SODBIC650 PO
[2018-12-08 15:17] LABS: Lactate Dehydrogenase (Ld),Bld 337 U/L (100-240)
[2018-12-08 15:19] LABS: Alanine Aminotransfer (ALT/SGP 38 U/L (12-78); Albumin, Blood 2.5 g/dL (3.4-5.0); Albumin/Globulin Ratio 0.6 (0.8-1.8); Alk Phos 205 U/L (50-136); Anion Gap 7 mmol/L (6-16); Aspartate Aminotrans (AST/SGOT 25 U/L (12-37); Bilirubin, Total 1.6 mg/dL (0.1-1.0); Blood Urea Nitrogen 41 mg/dL (8-24); Bun/Creatinine Ratio 42.4 (12.0-20.0); CO2, Blood 28 mmol/L (21-32); Calcium, Blood 8.6 mg/dL (8.5-10.1); Chloride, Blood 105 mmol/L (98-108); Creatinine, Blood 0.97 mg/dL (0.40-1.00); Globulin, Blood 4.3 g/dL (2.2-4.0); Glomerular Filtration Rate >60 (60-); Glucose, Blood 96 mg/dL (70-99); Potassium, Blood 5.2 mmol/L (3.5-5.5); Sodium, Blood 140 mmol/L (136-145); Total Protein, Blood 6.8 g/dL (6.4-8.2)
[2018-12-10 14:06] LABS: IMMUNOGLOBULIN G, QN, SERUM 1320 mg/dL (700-1600)
== END | disposition home or self-care (01) ==
LOC: LAB 12:10 → LAB SHORT 12:10
PROVIDERS: Internal Medicine Hematology & Oncology
DX: C90.00 Multiple myeloma not having achieved remission (principal)
CPT/HCPCS: 80053; 83615

== ENCOUNTER 2019-01-31 18:13 | Inpatient (IN) | payer MEDICARE ==
[~2019-01-31] VITALS: Ht 170.2 cm; Wt 144.5 kg
[2019-01-31 18:39] LABS: BASOPHILS ABSOLUTE AUTO 0.06 K/mm3 (0.00-0.23); BASOPHILS PERCENT AUTO 0 % (0-2); EOSINOPHILS PERCENT AUTO 0 % (0-6); Hematocrit 32.6 % (33.0-51.0); Hemoglobin 10.6 g/dL (11.5-16.0); IMMATURE GRAN ABSOLUTE AUTO 0.21 K/mm3 (0.00-0.10); IMMATURE GRAN PERCENT AUTO 1 % (0-1); LYMPHOCYTES ABSOLUTE AUTO 1.45 K/mm3 (0.84-5.20); LYMPHOCYTES PERCENT AUTO 6 % (21-46); MONOCYTES ABSOLUTE AUTO 0.62 K/mm3 (0.16-1.47); MONOCYTES PERCENT AUTO 3 % (4-13); Mean Corpuscular HGB 29.2 pg (26.0-34.0); Mean Corpuscular HGB Conc 32.5 g/dL (31.5-36.5); Mean Corpuscular Volume 90 fL (80-100); Mean Platelet Volume 10.9 fL (9.1-12.4); NEUTROPHILS ABSOLUTE AUTO 21.05 K/mm3 (1.96-9.15); NEUTROPHILS PERCENT AUTO 90 % (41-73); Platelet Count 193 K/mm3 (150-400); RDW Coefficient Variation 14.7 % (11.7-14.2); RDW Standard Deviation 48.3 fL (35.1-46.3); Red Blood Cell Count 3.63 M/mm3 (3.80-5.20); White Blood Cell Count 23.39 K/mm3 (4.00-11.30)
[2019-01-31 18:53] LABS: Albumin, Blood 1.9 g/dL (3.4-5.0); Albumin/Globulin Ratio 0.4 (0.8-1.8); Bilirubin, Total 1.9 mg/dL (0.1-1.0); Bun/Creatinine Ratio 41.1 (12.0-20.0); Calcium, Blood 8.6 mg/dL (8.5-10.1); Creatinine, Blood 1.58 mg/dL (0.40-1.00); Potassium, Blood 4.6 mmol/L (3.5-5.5); Total Protein, Blood 6.9 g/dL (6.4-8.2)
[2019-01-31 18:59] LABS: International Normalized Ratio 2.88; Prothrombin Time Results 27.7 Sec (9.7-11.5)
[2019-01-31 19:53] LABS: Source, Urine Clean Catch
[2019-01-31 19:59] LABS: Blood, Urine 5+ (Neg); Glucose Qualitative, Urine Neg (Neg); Ketones, Urine Neg (Neg); Leukocyte Esterase, Urine 3+ (Neg); Nitrite, Urine Neg (Neg); Protein, Urine 3+ (Neg); Urobilinogen, Urine 2+ (Normal)
[2019-01-31 20:13] LABS: Appearance, Urine Cloudy (Clear); Bilirubin, Urine 1+ (Neg); Color, Urine Amber (P-Yellow)
[2019-01-31 20:14] LABS: White Blood Cells, Urine TNTC /hpf (0-5)
[2019-01-31 20:15] LABS: Bacteria Many /hpf; Squamous Epithelial Cells Not Seen /hpf (Few)
[2019-02-01] MEDS ORDERED: LOSA25 PO (00:48)
[2019-02-01] MEDS ORDERED: FURO40 PO (00:53)
--- NOTE | 2019-02-01 00:56 | NUR ---
PT ARRIVED FROM ER VIA STRETCHER; TRANSFERRED TO BED VIA SLIDER SHEET; PT ALERT; C/O CHRONIC BACK PAIN; DEMANDED NOT TO BE SET UP OR REPOSITIONED; CARDIZEM GTT @15 INFUSING; PT IN AFIB W/ HR OF 140-160; PT ON RA W/ O2 SATS >94; PT INCONTINENT; ATTENDS IN PLACE; PT DENIES CHEST PAIN; PNEUMATIC TESTER MECHANIC AT BEDSIDE; CALL LIGHT IN REACH; BED IN LOWEST POSITION; WILL CONTINUE TO MONITOR CLOSELY;
[2019-02-01 01:29] LABS: Adenovirus Not Detected (NOT DETECT); Coronavirus 229E Not Detected (NOT DETECT)
[2019-02-01 01:30] LABS: Bordetella pertussis Not Detected (NOT DETECT); Chlamydophila pneumoniae Not Detected (NOT DETECT); Coronavirus HKU1 Not Detected (NOT DETECT); Coronavirus NL63 Not Detected (NOT DETECT); Coronavirus OC43 Not Detected (NOT DETECT); Human Metapneumovirus Not Detected (NOT DETECT); Human Rhinovirus/Enterovirus Not Detected (NOT DETECT); Influenza A Not Detected (NOT DETECT); Influenza A/2009-H1 Not Detected (NOT DETECT); Influenza A/H1 Not Detected (NOT DETECT); Influenza A/H3 Not Detected (NOT DETECT); Influenza B Not Detected (NOT DETECT); Mycoplasma pneumoniae Not Detected (NOT DETECT); Parainfluenza Virus 1 Not Detected (NOT DETECT); Parainfluenza Virus 2 Not Detected (NOT DETECT); Parainfluenza Virus 3 Not Detected (NOT DETECT); Parainfluenza Virus 4 Not Detected (NOT DETECT); Respiratory Syncytial Virus Not Detected (NOT DETECT)
[2019-02-01] MEDS ORDERED: CYCL10 PO (01:45)
[2019-02-01] MEDS ORDERED: ACET325 PO (01:50)
[2019-02-01] MEDS ORDERED: WARF5 PO (02:24)
--- NOTE | 2019-02-01 03:28 | NUR ---
PROVIDER NOTIFIED OF PT'S BP DECLINING 84/53; PT IN AFIB HR 130-160; NEW ORDER GIVEN FOR NS 500ML
[2019-02-01 03:39] LABS: Hematocrit 32.5 % (33.0-51.0); Hemoglobin 10.3 g/dL (11.5-16.0); Mean Corpuscular HGB 28.8 pg (26.0-34.0); Mean Corpuscular HGB Conc 31.7 g/dL (31.5-36.5); Mean Corpuscular Volume 91 fL (80-100); Mean Platelet Volume 11.1 fL (9.1-12.4); Platelet Count 144 K/mm3 (150-400); RDW Coefficient Variation 14.9 % (11.7-14.2); RDW Standard Deviation 49.4 fL (35.1-46.3); Red Blood Cell Count 3.58 M/mm3 (3.80-5.20); White Blood Cell Count 21.55 K/mm3 (4.00-11.30)
[2019-02-01 03:54] LABS: International Normalized Ratio 3.14
[2019-02-01 03:59] LABS: Albumin, Blood 2.1 g/dL (3.4-5.0); Albumin/Globulin Ratio 0.5 (0.8-1.8); Bilirubin, Total 2.1 mg/dL (0.1-1.0); Bun/Creatinine Ratio 37.3 (12.0-20.0); Calcium, Blood 8.2 mg/dL (8.5-10.1); Creatinine, Blood 1.69 mg/dL (0.40-1.00); Globulin, Blood 4.6 g/dL (2.2-4.0); Potassium, Blood 4.4 mmol/L (3.5-5.5); Total Protein, Blood 6.7 g/dL (6.4-8.2)
--- NOTE | 2019-02-01 08:03 | NUR ---
SHIFT SUMMARY PT ALERT; C/O PAIN W/ MINIMAL INTERVENTION; REFUSES REPOSITIONING; PT CURRENTLY NPO; MOUTH SWAB GIVEN FOR COMFORT; L AC IV BLEEDING AND DC'D THIS AM; 20 G R HAND INFUSING APPROPRIATELY; CARDIZEM GTT @ 15 INFUSING; PT ON RA; O2 SATS >93; PT DENIES CHEST PAIN; CALL LIGHT IN REACH; BED IN LOWEST POSITION; REPORT GIVEN TO DAY SHIFT RN.
--- NOTE | 2019-02-01 09:49 | NUR ---
CPAP PT REFUSING TO SIT UP. PLACED BED IN TRENDELENBERG TO FACILITATE BREATHING AND COMFORT. PT HAVING BACK SPASMS AND DECLINED HOB UP. LOAD SNORING RESP. NOTED. SAT 95% ON RA. ASKED PT IF SHE WORE CPAP. SHE WEARS CPAP AT [facility]. A SETTING OF 8. ORDERED CPAP. R/T SET UP AND FIT PT TO CPAP MACHINE. CONTINUE POT.
--- NOTE | 2019-02-01 15:00 | NUR ---
NOTE PT RESTING QUIETLY ON CPAP. SHE IS LAYING FLAT. TALKED WITH DR CUNHA ABOUT PT BACK SPASMS AND THAT SHE TAKES FLEXARIL FOR THE SPASMS. MEDICATED PT WITH FLEXARIL PER PT REQUEST. SEVERAL HOURS LATER PT STILL COMPLAINING OF BACK PAIN AND DECLINING TO TURN AND SOT IP A LITTLE. SHE JUST WANTS TO SLEEP. VSS. CARDIZEM GTT 15MG/HR. HEART RATE DECREASED WITH START OF CPAP. POWER GLIDE PLACED RIGHT UE FOR BLOOD DRAWS. PT AGREEABLE TO PLACEENT. CONTINUE POT.0
--- NOTE | 2019-02-01 15:55 | NUR ---
BACK PAIN PT ALERT AND ORIENTED. CPAP MASK REMOVED. PT EXPRESSED FEELING BETTER. SHE SLOWLY HAD THIS NURSE RQAISE THE HOB. SHE WAS ABLE TO COMFORTABLEY SIT UP TO 30 DEGREES WITHOUT PAIN. HER NECK IS STILL TIGHT. APPLIED A WARM PACK TO THE BACK OF HER NECK. PT IS STARTING TO GINGERLY MOVE HER HEAD BACK AND FORTH. SHE DRANK A CRANBERRY JUICE. PT RELATED THAT SHE EATS LAYING FLAT MOST OF THE TIME. SHE JUST EATS REALLY SLOWLY AND CAREFULY. CONTINUE POT.
--- NOTE | 2019-02-02 02:43 | NUR ---
02/01/191939 RESTING COMFORTABLY WHILE WEARING BIPAP, HEART RATE 110 WITH CARDIZEM GTT AT 15ML/HR.
[2019-02-02 03:46] LABS: BASOPHILS ABSOLUTE AUTO 0.03 K/mm3 (0.00-0.23); BASOPHILS PERCENT AUTO 0 % (0-2); EOSINOPHILS PERCENT AUTO 0 % (0-6); Hematocrit 31.7 % (33.0-51.0); Hemoglobin 9.8 g/dL (11.5-16.0); IMMATURE GRAN ABSOLUTE AUTO 0.12 K/mm3 (0.00-0.10); IMMATURE GRAN PERCENT AUTO 1 % (0-1); LYMPHOCYTES ABSOLUTE AUTO 0.97 K/mm3 (0.84-5.20); LYMPHOCYTES PERCENT AUTO 6 % (21-46); MONOCYTES ABSOLUTE AUTO 0.48 K/mm3 (0.16-1.47); MONOCYTES PERCENT AUTO 3 % (4-13); Mean Corpuscular HGB 28.4 pg (26.0-34.0); Mean Corpuscular HGB Conc 30.9 g/dL (31.5-36.5); Mean Corpuscular Volume 92 fL (80-100); Mean Platelet Volume 11.7 fL (9.1-12.4); NEUTROPHILS ABSOLUTE AUTO 15.35 K/mm3 (1.96-9.15); NEUTROPHILS PERCENT AUTO 91 % (41-73); Platelet Count 136 K/mm3 (150-400); RDW Standard Deviation 50.2 fL (35.1-46.3); Red Blood Cell Count 3.45 M/mm3 (3.80-5.20); White Blood Cell Count 16.95 K/mm3 (4.00-11.30)
[2019-02-02 04:03] LABS: Bun/Creatinine Ratio 52.3 (12.0-20.0); Calcium, Blood 8.4 mg/dL (8.5-10.1); Creatinine, Blood 1.32 mg/dL (0.40-1.00)
[2019-02-02 04:06] LABS: Prothrombin Time Results 40.7 Sec (9.7-11.5)
--- NOTE | 2019-02-02 04:28 | NUR ---
SHIFT SUMMARY: 73 Y/O OBESE FEMALE RESTED COMFORTABLY ALL SHIFT WHILE WEARING BIPAP; DENIES PAIN OR NAUSEA; CARDIZEM GTT STARTED AT 15ML/HR AT BEGINNING OF SHIFT WITH HEART RATES 110, AT END OF SHIFT HEART WAS LOW 90'S WITH CARDIZEM GTT AT 5ML/HR; ALERT AND ORIENTED X 4; TURNED AND CHANGED Q2H; BED ALARM APPLIED, BED LOW POSITION WITH CALL LIGHT AT SIDE.
[2019-02-02 04:36] LABS: International Normalized Ratio 4.39
--- NOTE | 2019-02-02 19:32 | NUR ---
Shift Summary Pt with no acute declines this shift. Remains alert and oriented. VSS. Worked with PT this day but unable to participate much d/t extensive deconditioning. Pt involved in care and cooperative with plan. Denies SOB or chest pain, breathing even and unlabored. Attempted to D/C cardizem gtt at approx 1300, but rates increased from 100 to 150's sustaining for approx 5 minutes as seen on telemetry. MD notified and cardizem gtt continued at 5. Rates maintained in 100-110 for rest of shift. Pt able to roll to use bedpan this shift for bowel movement, voiding is incont in attends. Attends currently dry. Pt with regular diet, able to safely swallow at approx 30 degrees elevated. No acute changes from initial shift assessment. Pt care reported to [facility]
--- NOTE | 2019-02-02 20:23 | NUR ---
PT RESTING COMFORTABLY LOW FOWLERS; HEART RATE 107 PER TELEMETRY; CARDIZEM AT 5ML/HR VIA LEFT UPPER ARM POWERPORT.
--- NOTE | 2019-02-03 04:19 | NUR ---
SHIFT SUMMARY: 73 Y/O MORBID OBESE FEMALE RESTED COMFORTABLY ALL SHIFT WHILE WEARING BIPAP; CARDIZEM GTT TURNED OFF 0 WITH CURRENT HEART RATE 75 PER TELEMETRY; DENIES PAIN OR NAUSEA; TURNED Q2H AND ATTENDS DIAPERS CHANGED (INCONTINENT YELLOW FLUID); ALERT AND ORIENTED X 4; RIGHT UPPER POWER PORT DOES NOT DRAW BLOOD--PT REQUIRED A PERIPHERAL BLOOD DRAW FROM LAB; BED LOW POSITION WITH CALL LIGHT AT SIDE.
[2019-02-03 05:02] LABS: BASOPHILS ABSOLUTE AUTO 0.05 K/mm3 (0.00-0.23); BASOPHILS PERCENT AUTO 0 % (0-2); EOSINOPHILS PERCENT AUTO 0 % (0-6); Hematocrit 33.3 % (33.0-51.0); Hemoglobin 10.3 g/dL (11.5-16.0); IMMATURE GRAN ABSOLUTE AUTO 0.17 K/mm3 (0.00-0.10); IMMATURE GRAN PERCENT AUTO 1 % (0-1); LYMPHOCYTES ABSOLUTE AUTO 1.79 K/mm3 (0.84-5.20); LYMPHOCYTES PERCENT AUTO 10 % (21-46); MONOCYTES ABSOLUTE AUTO 0.79 K/mm3 (0.16-1.47); MONOCYTES PERCENT AUTO 4 % (4-13); Mean Corpuscular HGB 28.5 pg (26.0-34.0); Mean Corpuscular HGB Conc 30.9 g/dL (31.5-36.5); Mean Corpuscular Volume 92 fL (80-100); NEUTROPHILS ABSOLUTE AUTO 15.31 K/mm3 (1.96-9.15); NEUTROPHILS PERCENT AUTO 85 % (41-73); Platelet Count 154 K/mm3 (150-400); RDW Coefficient Variation 15.1 % (11.7-14.2); RDW Standard Deviation 50.7 fL (35.1-46.3); Red Blood Cell Count 3.62 M/mm3 (3.80-5.20); White Blood Cell Count 18.11 K/mm3 (4.00-11.30)
[2019-02-03 05:20] LABS: International Normalized Ratio 3.86; Prothrombin Time Results 36.2 Sec (9.7-11.5)
[2019-02-03 05:31] LABS: Calcium, Blood 8.5 mg/dL (8.5-10.1); Creatinine, Blood 1.19 mg/dL (0.40-1.00); Potassium, Blood 3.8 mmol/L (3.5-5.5)
--- NOTE | 2019-02-03 09:00 | NUR ---
Assumed care at approx 0700; pt alert and oriented, VSS, sitting in bed watching tv. Pt able to express concerns and needs with call light. pt states "i feel a little sick to my stomach". Pt denies need for nausea medication. See shift assessment for detailed systems assessment. ABx infusing per orders, pt able to take all pills whole with water. PO Metoprolol given this AM per orders; cardizem gtt remains titrated off. per tele, afib between 80-90. Will continue to monitor. no acute concerns to note at this time.
--- NOTE | 2019-02-03 09:48 | NUR ---
No warfarin given this shift per orders.
--- NOTE | 2019-02-03 10:26 | NUR ---
Dr. Riley at bedside. Per dr. riley, have RT in for CPAP fitting.
--- NOTE | 2019-02-03 18:44 | NUR ---
Shift Summary No acute changes this shift. VSS. Pt alert and oriented all day. Pt stated to this RN "I didn't sleep last night"; pt worked with PT and OT this shift and slept for approx 4-5 hours this afternoon. Pt c/o pain to back x1 at approx 1745 and given tylenol per orders with relief noted. Abx infusing per orders, no changes to oxygen demand, breathing even and unlabored. Pt rates remains 80's on PO metoprolol. Pt's daughter, Nancy, wantes to be called with updates from Care Management. Number for daughterNancy is: [phone]. Pt with no acute declines noted and no changes from initial shift assessment. Will continue to monitor.
[2019-02-04 04:39] LABS: BASOPHILS ABSOLUTE AUTO 0.04 K/mm3 (0.00-0.23); BASOPHILS PERCENT AUTO 0 % (0-2); EOSINOPHILS ABSOLUTE AUTO 0.04 K/mm3 (0.00-0.68); EOSINOPHILS PERCENT AUTO 0 % (0-6); Hematocrit 33.6 % (33.0-51.0); Hemoglobin 10.5 g/dL (11.5-16.0); IMMATURE GRAN ABSOLUTE AUTO 0.24 K/mm3 (0.00-0.10); IMMATURE GRAN PERCENT AUTO 1 % (0-1); LYMPHOCYTES ABSOLUTE AUTO 1.95 K/mm3 (0.84-5.20); LYMPHOCYTES PERCENT AUTO 11 % (21-46); MONOCYTES ABSOLUTE AUTO 0.96 K/mm3 (0.16-1.47); MONOCYTES PERCENT AUTO 6 % (4-13); Mean Corpuscular HGB 28.5 pg (26.0-34.0); Mean Corpuscular HGB Conc 31.3 g/dL (31.5-36.5); Mean Corpuscular Volume 91 fL (80-100); Mean Platelet Volume 11.3 fL (9.1-12.4); NEUTROPHILS ABSOLUTE AUTO 13.82 K/mm3 (1.96-9.15); NEUTROPHILS PERCENT AUTO 81 % (41-73); Platelet Count 167 K/mm3 (150-400); RDW Coefficient Variation 14.9 % (11.7-14.2); RDW Standard Deviation 50.1 fL (35.1-46.3); Red Blood Cell Count 3.69 M/mm3 (3.80-5.20); White Blood Cell Count 17.05 K/mm3 (4.00-11.30)
[2019-02-04 04:59] LABS: Albumin, Blood 1.8 g/dL (3.4-5.0); Albumin/Globulin Ratio 0.4 (0.8-1.8); Calcium, Blood 8.3 mg/dL (8.5-10.1); Creatinine, Blood 1.18 mg/dL (0.40-1.00); Globulin, Blood 4.3 g/dL (2.2-4.0); Potassium, Blood 3.6 mmol/L (3.5-5.5); Total Protein, Blood 6.1 g/dL (6.4-8.2)
[2019-02-04 05:01] LABS: Prothrombin Time Results 46.7 Sec (9.7-11.5)
[2019-02-04 05:13] LABS: International Normalized Ratio 5.11
--- NOTE | 2019-02-04 05:55 | NUR ---
SHIFT SUMMARY: PATIENT SLEPT WELL THIS SHIFT, LESS PAIN USING NECK ROLL RATHER THAN PILLOW. PATIENT RECEIVED PARTIAL BED BATH. ONE EPISODE OF SVT LASTING APPROX 10 BEATS, NO OYTHER ISSUES AFTER THAT. ALL OTHER VSS, CALL LIGHT WITHIN REACH WITH BED LOW AND LOCKED
--- NOTE | 2019-02-04 17:35 | NUR ---
SHIFT SUMMARY PT A&Ox4. CALM AND COOPERATIVE WITH CARE PT RESTING IN BED DURING SHIFT. REPOSITIONED Q2 FOR COMFORT AND PRESSURE ULCER PREVENTION. PT REPORTS LOWER BACK PAIN, MEDICATED x2 WITH TYLENOL WITH POSITIVE RESULTS. PT HAD LUMBAR XRAY COMPLETED THIS AM. PT DENIES SOB AND NASUEA T/O SHIFT. PT ON CPAP FOR MAJORITY OF SHIFT, SLEEPING INTERMITTENTLY DURING SHIFT. WHEN NOT SLEEPING PT's SPO2 >92% ON RA. BREATHING EVEN AND UNLABORED. PT RECEIVING IV ANTIBIOTICS. VSS. NO OTHER ACUTE CHANGES NOTED DURING SHIFT. WILL CONTINUE TO MONITOR. UNTIL REPORT GIVEN TO ONCOMING RN.
[2019-02-05 04:49] LABS: BASOPHILS ABSOLUTE AUTO 0.05 K/mm3 (0.00-0.23); BASOPHILS PERCENT AUTO 0 % (0-2); EOSINOPHILS ABSOLUTE AUTO 0.07 K/mm3 (0.00-0.68); EOSINOPHILS PERCENT AUTO 0 % (0-6); Hematocrit 34.2 % (33.0-51.0); Hemoglobin 10.8 g/dL (11.5-16.0); IMMATURE GRAN ABSOLUTE AUTO 0.62 K/mm3 (0.00-0.10); IMMATURE GRAN PERCENT AUTO 4 % (0-1); LYMPHOCYTES ABSOLUTE AUTO 2.14 K/mm3 (0.84-5.20); LYMPHOCYTES PERCENT AUTO 13 % (21-46); MONOCYTES ABSOLUTE AUTO 0.88 K/mm3 (0.16-1.47); MONOCYTES PERCENT AUTO 5 % (4-13); Mean Corpuscular HGB 28.3 pg (26.0-34.0); Mean Corpuscular HGB Conc 31.6 g/dL (31.5-36.5); Mean Corpuscular Volume 90 fL (80-100); Mean Platelet Volume 10.6 fL (9.1-12.4); NEUTROPHILS ABSOLUTE AUTO 13.05 K/mm3 (1.96-9.15); NEUTROPHILS PERCENT AUTO 78 % (41-73); Platelet Count 181 K/mm3 (150-400); RDW Coefficient Variation 14.9 % (11.7-14.2); RDW Standard Deviation 48.5 fL (35.1-46.3); Red Blood Cell Count 3.82 M/mm3 (3.80-5.20); White Blood Cell Count 16.81 K/mm3 (4.00-11.30)
[2019-02-05 05:08] LABS: Alanine Aminotransfer (ALT/SGP 23 U/L (12-78); Albumin, Blood 1.8 g/dL (3.4-5.0); Albumin/Globulin Ratio 0.4 (0.8-1.8); Alk Phos 164 U/L (50-136); Anion Gap 9 mmol/L (6-16); Aspartate Aminotrans (AST/SGOT 10 U/L (12-37); Blood Urea Nitrogen 59 mg/dL (8-24); Bun/Creatinine Ratio 67.6 (12.0-20.0); CO2, Blood 23 mmol/L (21-32); Chloride, Blood 108 mmol/L (98-108); Creatinine, Blood 0.87 mg/dL (0.40-1.00); Glomerular Filtration Rate >60 (60-); Glucose, Blood 116 mg/dL (70-99); Potassium, Blood 3.1 mmol/L (3.5-5.5); Sodium, Blood 140 mmol/L (136-145); Total Protein, Blood 5.8 g/dL (6.4-8.2)
[2019-02-05 05:10] LABS: Prothrombin Time Results 78.1 Sec (9.7-11.5)
--- NOTE | 2019-02-05 05:43 | NUR ---
SHIFT SUMMARY PT SLEEPING IN ROOM COMFORTABLY AT THIS TIME. PT HAS STATUS REMAINS STABLE, BUT INR LEVEL CONTINUES TO CLIMB, INR THIS AM UP FROM 5.1 TO 9.0. HOSPITALIST INFORMED. CONTINUING TO MONITOR PT. NO ACTIVE SIGNS OF BLEEDING AT THIS TIME. RESP EVEN UNLABORED ON CPAP W/ SATS >95%, PT WORE CPAP T/O NIGHT. PT INCONTINENT AND ATTENDS CHANGED T/O NIGHT W/ TURNS. NEW POWERGLIDE WAS PLACED D/T INFILTRATION OF PREVIOUS SITE. TKO OF NS INFUSING ALONG WITH ABV Q4 HRS. PT DENIES OTHER NEEDS AT THIS TIME. CALL LIGHT IN REACH.
--- NOTE | 2019-02-05 10:27 | NUR ---
LATE ENTRY 920 PT REPROTING NEW HEADACHE STARTING AT THE FRONT OF PT HEAD TRAVELING BACK, PT RATES 7/10 ACHE. VSS. PLACED WARM BLANKET BEHIND PT HEAD. WILL CONTINUE TO MONITOR. 1010, REASSESSED PAIN, PT STATES PAIN 0/10. WILL CONTINUE TO MONITOR.
[2019-02-05 14:45] LABS: Prothrombin Time Results 82.7 Sec (9.7-11.5)
[2019-02-05 14:46] LABS: International Normalized Ratio 9.58
--- NOTE | 2019-02-05 17:12 | NUR ---
SHIFT SUMMARY PT A&Ox4. CALM AND COOPERATIVE. PT RESTING IN BED, APPEARS TO BE SLEEPING INTERMITTENTLY WITH CPAP. PT RESISTANT TO REPOSTIONING AND ATTENDS CHANGES. PT REPORT LANGE THIS AM RESOLVED WITH WARM PACK. PT REPORTS BACK PAIN, MEDICATED WITH TYLENOL x1 WITH POSITIVE RESULTS. PT DENIES SOB, SPO2 >92% ON RA, CPAP WHILE SLEEPING. PT REPORTS STOMACH NOT FEELING WELL, BUT DENEIS NAUSEA T/O SHIFT. SUPRATHERAPUTIC INR 9.0, NOTIFIED DR CLARK, NEW ORDERS FOR VIT K 1MG PO ONCE, RECHECKED INR INCREASE, NOTIFIED DR CLARK, NEW ORDERS FOR SECOND DOSE OF VIT K 1MG PO ONCE. NO S/SX OF ACTIVE BLEEDING NOTED. NO OTHER ACUTE CHAGNES NOTED, WILL CONTINUE TO MONITOR UNTIL REPORT GIVEN TO ONCOMING RN.
[2019-02-06 05:02] LABS: BASOPHILS ABSOLUTE AUTO 0.06 K/mm3 (0.00-0.23); BASOPHILS PERCENT AUTO 0 % (0-2); EOSINOPHILS ABSOLUTE AUTO 0.09 K/mm3 (0.00-0.68); EOSINOPHILS PERCENT AUTO 1 % (0-6); Hematocrit 34.2 % (33.0-51.0); IMMATURE GRAN ABSOLUTE AUTO 0.74 K/mm3 (0.00-0.10); IMMATURE GRAN PERCENT AUTO 4 % (0-1); LYMPHOCYTES ABSOLUTE AUTO 2.68 K/mm3 (0.84-5.20); LYMPHOCYTES PERCENT AUTO 15 % (21-46); MONOCYTES ABSOLUTE AUTO 0.86 K/mm3 (0.16-1.47); MONOCYTES PERCENT AUTO 5 % (4-13); Mean Corpuscular HGB 28.6 pg (26.0-34.0); Mean Corpuscular HGB Conc 32.2 g/dL (31.5-36.5); Mean Corpuscular Volume 89 fL (80-100); Mean Platelet Volume 10.9 fL (9.1-12.4); NEUTROPHILS ABSOLUTE AUTO 13.94 K/mm3 (1.96-9.15); NEUTROPHILS PERCENT AUTO 76 % (41-73); NRBC ABSOLUTE 0.02 K/mm3 (0.00-0.02); NRBC Auto 0.1 /100 WBC (0.0-0.2); Platelet Count 218 K/mm3 (150-400); RDW Coefficient Variation 15.2 % (11.7-14.2); RDW Standard Deviation 49.1 fL (35.1-46.3); Red Blood Cell Count 3.85 M/mm3 (3.80-5.20); White Blood Cell Count 18.37 K/mm3 (4.00-11.30)
[2019-02-06 05:16] LABS: International Normalized Ratio 3.66; Prothrombin Time Results 34.5 Sec (9.7-11.5)
[2019-02-06 05:19] LABS: Alanine Aminotransfer (ALT/SGP 19 U/L (12-78); Albumin, Blood 1.8 g/dL (3.4-5.0); Albumin/Globulin Ratio 0.4 (0.8-1.8); Alk Phos 160 U/L (50-136); Anion Gap 6 mmol/L (6-16); Aspartate Aminotrans (AST/SGOT 9 U/L (12-37); Blood Urea Nitrogen 44 mg/dL (8-24); Bun/Creatinine Ratio 63.8 (12.0-20.0); CO2, Blood 27 mmol/L (21-32); Calcium, Blood 7.7 mg/dL (8.5-10.1); Chloride, Blood 109 mmol/L (98-108); Creatinine, Blood 0.69 mg/dL (0.40-1.00); Globulin, Blood 4.1 g/dL (2.2-4.0); Glomerular Filtration Rate >60 (60-); Glucose, Blood 113 mg/dL (70-99); Sodium, Blood 142 mmol/L (136-145); Total Protein, Blood 5.9 g/dL (6.4-8.2)
--- NOTE | 2019-02-06 06:04 | NUR ---
END OF SHIFT SUMMARY NO ACUTE CHANGES THIS SHIFT. VSS. PT REMAINS ON RA OR CPAP OFF AND OMN. SPO2 >94%. PT BEING TURNED BY STAFF. PT TOLERATING THIS WELL DESPITE "COMPRESSION FRACTURES IN SPINE". REMAINS IN AFIB, MED CONTROLLED. MELANIE AREA STILL REDDENED BUT HAS BEEN CLEANED AND DRIED. PT CONTINUES WITH INCONTINENCE AND SATURATES PADS. PT BEING ENCOURAGED TO MOVE AROUND MORE AND BE MORE ACTIVE. EDUCATED REGARDING EATING/DRINKING WITH NOSE CPAP MASK ON. INR HAS DROPPED SIGNIFICANTLY. NO SIGNS OF BLEEDING BUT DOES HAVE MUCH BRUSING IN MANY AREAS. IV ABX CONTINUE TO INFUSE Q4HR. WILL CONTINUEN TO MONITOR UNTIL SHIFT CHANGE.
--- NOTE | 2019-02-06 07:58 | NUR ---
NEW ICE WATER PROVIDED.
--- NOTE | 2019-02-06 08:27 | NUR ---
PT REFUSING TO BE LIFTED WITH CEILING LIFT. EXPLAINET TO PT THAT ITS SAFER. PT STILL REFUSED. WILL NOTIFY PRIMARY.
--- NOTE | 2019-02-06 08:36 | NUR ---
PT PULLED UP IN BED WITH 2 OTHER PEOPLE. PT C/O ABD PAIN WITH SITTING UP.
--- NOTE | 2019-02-06 16:03 | NUR ---
Spiritual care visit conducted. Patient is lying in bed and alert. Patient opnely shares about her medical, family and matti history. Patient discusses with me about not continuing chemotherapy and concerns around her family unit complications. Patient is extremely strong in her matti but greatly appreciated when I provided scriptuce recitaion and prayer. Patient voices appreciation for the visit
--- NOTE | 2019-02-07 00:35 | NUR ---
cheerful and cooperative, reposition and checked depends, prescribed medications given, no s/sx of infection or infiltration at iv site, family in room at start of shift but left when needed to reposition pt tolerated procedure well, nasel cpap in place and oximeter not alarming, bed in low position, call light in reach, denies s/sx of uti, looking forward to going home in the AM
--- NOTE | 2019-02-07 01:38 | NUR ---
given 1000 tylenol for pain, states it works but asked dr for stronger medication
[2019-02-07 04:34] LABS: Anion Gap 8 mmol/L (6-16); Blood Urea Nitrogen 40 mg/dL (8-24); Bun/Creatinine Ratio 50.9 (12.0-20.0); CO2, Blood 25 mmol/L (21-32); Calcium, Blood 8.1 mg/dL (8.5-10.1); Chloride, Blood 109 mmol/L (98-108); Creatinine, Blood 0.79 mg/dL (0.40-1.00); Glomerular Filtration Rate >60 (60-); Glucose, Blood 109 mg/dL (70-99); Potassium, Blood 3.4 mmol/L (3.5-5.5); Sodium, Blood 142 mmol/L (136-145)
--- NOTE | 2019-02-07 06:44 | NUR ---
cooperative when being moved, changed and being medicated, call light in reach, able to make needs know, reposition and cleaned frequently, abx infusing with no s/sx of infiltration or infection, will continue to monitor and treat until share bsr with pt and staff member, nasal cpap used through out shift and stats stayed primarily above parementers set on oxcimeter
--- NOTE | 2019-02-07 07:40 | NUR ---
Bedside report received from Kolby Schultz RN. Lacey is awake, wearing her cpap, and asking for Tylenol for her chronic back pain. NOted heart rate is 131-140 bpm; will give beta blockers now instead of waiting for scheduled administration time later. Blood pressure systolic greater than 100 mm Hg.She is having no other complaints other than back pain. Appears calm, comfortable , without respiratory distress or dyspnea.
[2019-02-07 10:20] LABS: International Normalized Ratio 2.46
--- NOTE | 2019-02-07 12:19 | NUR ---
Lacey asked me to tell the doctor that she doesn't want to go back to [facility] today. I asked her why that was, and she said that she just likes it better here at the hospital. I explained to her that if it no longer medically neccesary for her to stay at the hospital, the doctor would not keep her here if it was appropriate for her to be discharged. She said that she understood that. I asked if she is a resident at [facility] or if she is there for rehab, and she said , Well I hope that I don't have to stay there", but she is unable to really give any details or explanation as to how long she has been there, for what reason she went there, nor the plan of her care. She seems very apathetic and uninterested in participation in her care. She said that the physical therapy at [facility] was "CUT OFF" but she cannot give me any explanation for that either. She has expressed reservations about doing any physical therapy because "it's too much work", and indeed she has resisted even minimal attempts at increasing her activity level while admitted, namely, sitting up in bed, getting OOB to a chair, or repositioning in the bed. She tells me that she is "lazy". I encouraged her to think about her quality of life, and making small goals to work toward increasing her mobility so that she will have a better quality of life. She seemed somewhat receptive to this idea.
[2019-02-07] MEDS ORDERED: GLYCOPYRROLATE INH (13:18)
[2019-02-07] MEDS ORDERED: AMOCLA875 PO (13:19)
--- NOTE | 2019-02-07 14:30 | NUR ---
Patient is lying in bed and alert. Patient tells me that she is going to [facility] today. Patient says that she wishes she could stay in the hospital one more night because she is nervous about leaving the level of care the hospital offers. She tells me that she is off to a new adventure. I listen empathically and provide companionship, pastoral counselor aide and prayer. Patient responds well and shows evidence of an elevated mood.
--- NOTE | 2019-02-07 14:35 | NUR ---
Attempted to call to give report to RN receiving at [facility]; the nurse was busy, so I was asked to leave a call back number.
== END 2019-02-07 14:44 | DRG 871 ==
LOC: ER 18:13 → PCU 02-01 00:05
PROVIDERS: Emergency Medicine; Family Medicine; Internal Medicine Endocrinology, Diabetes & Metabolism; Student in an Organized Health Care Education/Training Program; ADMIT Internal Medicine
DX: A41.01 Sepsis due to Methicillin susceptible Staphylococcus aureus (principal); R65.21 Severe sepsis with septic shock; G92 Toxic encephalopathy; I50.33 Acute on chronic diastolic (congestive) heart failure; N17.9 Acute kidney failure, unspecified; E87.1 Hypo-osmolality and hyponatremia; C90.00 Multiple myeloma not having achieved remission; I48.20 Chronic atrial fibrillation, unspecified; N39.0 Urinary tract infection, site not specified; I13.0 Hypertensive heart and chronic kidney disease with heart failure and stage 1 through stage 4 chronic kidney disease, or unspecified chronic kidney disease; Z68.43 Body mass index [BMI] 50.0-59.9, adult; M54.5 Low back pain; G47.33 Obstructive sleep apnea (adult) (pediatric); E11.22 Type 2 diabetes mellitus with diabetic chronic kidney disease; E87.6 Hypokalemia; J44.9 Chronic obstructive pulmonary disease, unspecified; E66.01 Morbid (severe) obesity due to excess calories; I27.20 Pulmonary hypertension, unspecified; N18.9 Chronic kidney disease, unspecified; E03.9 Hypothyroidism, unspecified; K21.9 Gastro-esophageal reflux disease without esophagitis; E86.0 Dehydration; E88.09 Other disorders of plasma-protein metabolism, not elsewhere classified; Z79.01 Long term (current) use of anticoagulants; Z79.82 Long term (current) use of aspirin; Z79.899 Other long term (current) drug therapy
CPT/HCPCS: 0099U; 36415; 71045; 72100; 80048; 80053; 81001; 83605; 83880; 85025; 85027; 85610; 87040; 87077; 87086; 87147; 87186; 93005; 93010; 93308; 93321; 94640; 94660; 94760; 94762; 96361; 96365; 96367; 96376; 97110; 97162; 97166; 97530; 99285-25; A9270; C1751; J0696; J0744; J1720; J2700; J3480; J7030; J7040; J7050; P9046

== ENCOUNTER → 2019-03-20 | Outpatient (CLI) | payer MEDICARE ==
[~2019-03-20] MED LIST changes: +ACET325 PO; +AMOCLA875 PO; +CYCL10 PO; +GLYCOPYRROLATE INH
[2019-03-20 10:58] LABS: International Normalized Ratio 5.02
== END | disposition home or self-care (01) ==
LOC: LAB UVN 09:00 → EDSTATUS 14:58
PROVIDERS: Hospitalist
DX: I48.20 Chronic atrial fibrillation, unspecified (principal)
CPT/HCPCS: 36415; 85610

== ENCOUNTER → 2019-04-11 | Outpatient (CLI) | payer MEDICARE ==
[~2019-04-11] MED LIST changes: -ASPI81CH PO; +Aspirin EC81 MG PO; -GLYCOPYRROLATE INH; +MYRBETRIQ25 MG PO; +SEEBRI NEOHA15.6 MCG INH; +Synthroid200 MCG PO; +TOPROL XL50 M1 PO; +TROSPIUM CHLORI20 MG
[2019-04-11 09:45] LABS: International Normalized Ratio 3.08; Prothrombin Time Results 30.9 Sec (9.7-11.5)
== END | disposition home or self-care (01) ==
LOC: LAB UVN 09:16 → EDSTATUS 13:03 → LAB UVN 13:04
PROVIDERS: Family Medicine
DX: I48.20 Chronic atrial fibrillation, unspecified (principal)
CPT/HCPCS: 36415; 85610

== ENCOUNTER → 2019-04-13 | Outpatient (CLI) | payer MEDICARE ==
[~2019-04-13] MED LIST changes: +ASPI81CH PO; -Aspirin EC81 MG PO; +GLYCOPYRROLATE INH; -MYRBETRIQ25 MG PO; -SEEBRI NEOHA15.6 MCG INH; -Synthroid200 MCG PO; -TOPROL XL50 M1 PO; -TROSPIUM CHLORI20 MG
[2019-04-13 20:06] LABS: Alanine Aminotransfer (ALT/SGP 22 U/L (12-78); Albumin, Blood 2.8 g/dL (3.4-5.0); Albumin/Globulin Ratio 0.7 (0.8-1.8); Alk Phos 197 U/L (50-136); Anion Gap 5 mmol/L (6-16); Aspartate Aminotrans (AST/SGOT 19 U/L (12-37); Blood Urea Nitrogen 29 mg/dL (8-24); Bun/Creatinine Ratio 36.5 (12.0-20.0); CO2, Blood 28 mmol/L (21-32); Calcium, Blood 8.5 mg/dL (8.5-10.1); Chloride, Blood 104 mmol/L (98-108); Globulin, Blood 4.2 g/dL (2.2-4.0); Glomerular Filtration Rate >60 (60-); Glucose, Blood 244 mg/dL (70-99); Potassium, Blood 4.5 mmol/L (3.5-5.5); Sodium, Blood 137 mmol/L (136-145)
== END | disposition home or self-care (01) ==
LOC: LAB 17:58 → LAB SHORT 17:58
PROVIDERS: Internal Medicine Hematology & Oncology
DX: D47.2 Monoclonal gammopathy (principal)
CPT/HCPCS: 80053

== ENCOUNTER → 2019-04-19 | Outpatient (CLI) | payer MEDICARE ==
[~2019-04-19] MED LIST changes: -ASPI81CH PO; +Aspirin EC81 MG PO; -GLYCOPYRROLATE INH; +MYRBETRIQ25 MG PO; +SEEBRI NEOHA15.6 MCG INH; +Synthroid200 MCG PO; +TOPROL XL50 M1 PO; +TROSPIUM CHLORI20 MG
[2019-04-19 11:35] LABS: International Normalized Ratio 2.29; Prothrombin Time Results 23.4 Sec (9.7-11.5)
== END | disposition home or self-care (01) ==
LOC: LAB UVN 09:04 → EDSTATUS 13:04
PROVIDERS: Family Medicine
DX: I48.20 Chronic atrial fibrillation, unspecified (principal); N18.9 Chronic kidney disease, unspecified; D63.1 Anemia in chronic kidney disease; D69.59 Other secondary thrombocytopenia
CPT/HCPCS: 36415; 85610

== ENCOUNTER 2019-04-24 07:32 | Inpatient (IN) | payer MEDICARE ==
[~2019-04-24] VITALS: Ht 170.2 cm; Wt 137.4 kg
[~2019-04-24 07:32] MED LIST changes: -MYRBETRIQ25 MG PO; -Synthroid200 MCG PO; -TOPROL XL50 M1 PO; -TROSPIUM CHLORI20 MG
[2019-04-24 08:38] LABS: BASOPHILS ABSOLUTE AUTO 0.07 K/mm3 (0.00-0.23); BASOPHILS PERCENT AUTO 1 % (0-2); EOSINOPHILS ABSOLUTE AUTO 0.33 K/mm3 (0.00-0.68); EOSINOPHILS PERCENT AUTO 2 % (0-6); Hematocrit 44.1 % (33.0-51.0); IMMATURE GRAN ABSOLUTE AUTO 0.07 K/mm3 (0.00-0.10); IMMATURE GRAN PERCENT AUTO 1 % (0-1); LYMPHOCYTES ABSOLUTE AUTO 3.66 K/mm3 (0.84-5.20); LYMPHOCYTES PERCENT AUTO 26 % (21-46); MONOCYTES ABSOLUTE AUTO 0.91 K/mm3 (0.16-1.47); MONOCYTES PERCENT AUTO 7 % (4-13); Mean Corpuscular HGB 26.3 pg (26.0-34.0); Mean Corpuscular HGB Conc 29.5 g/dL (31.5-36.5); Mean Corpuscular Volume 89 fL (80-100); Mean Platelet Volume 9.5 fL (9.1-12.4); NEUTROPHILS ABSOLUTE AUTO 8.98 K/mm3 (1.96-9.15); NEUTROPHILS PERCENT AUTO 64 % (41-73); Platelet Count 305 K/mm3 (150-400); RDW Coefficient Variation 15.9 % (11.7-14.2); RDW Standard Deviation 51.8 fL (35.1-46.3); Red Blood Cell Count 4.95 M/mm3 (3.80-5.20); White Blood Cell Count 14.02 K/mm3 (4.00-11.30)
[2019-04-24 09:02] LABS: Alanine Aminotransfer (ALT/SGP 15 U/L (12-78); Albumin, Blood 2.8 g/dL (3.4-5.0); Albumin/Globulin Ratio 0.5 (0.8-1.8); Alk Phos 163 U/L (50-136); Anion Gap 6 mmol/L (6-16); Aspartate Aminotrans (AST/SGOT 16 U/L (12-37); Blood Urea Nitrogen 27 mg/dL (8-24); Bun/Creatinine Ratio 34.8 (12.0-20.0); CO2, Blood 28 mmol/L (21-32); Calcium, Blood 9.3 mg/dL (8.5-10.1); Chloride, Blood 106 mmol/L (98-108); Creatinine, Blood 0.78 mg/dL (0.40-1.00); Globulin, Blood 5.4 g/dL (2.2-4.0); Glomerular Filtration Rate >60 (60-); Glucose, Blood 116 mg/dL (70-99); Magnesium, Blood 2.1 mg/dL (1.6-2.4); Phosphorus, Blood 3.3 mg/dL (2.5-4.9); Sodium, Blood 140 mmol/L (136-145); Total Protein, Blood 8.2 g/dL (6.4-8.2); Troponin I <0.015 ng/mL (0.000-0.040)
[2019-04-24 10:06] LABS: Source, Urine Clean Catch
[2019-04-24 10:10] LABS: Bilirubin, Urine Neg (Neg); Blood, Urine 5+ (Neg); Glucose Qualitative, Urine Neg (Neg); Ketones, Urine Neg (Neg); Leukocyte Esterase, Urine 2+ (Neg); Nitrite, Urine Pos (Neg); Protein, Urine Neg (Neg); Urobilinogen, Urine 1+ (Normal)
[2019-04-24 10:30] LABS: Adenovirus Not Detected (NOT DETECT); Bordetella pertussis Not Detected (NOT DETECT); Chlamydophila pneumoniae Not Detected (NOT DETECT); Coronavirus 229E Not Detected (NOT DETECT); Coronavirus HKU1 Not Detected (NOT DETECT); Coronavirus NL63 Not Detected (NOT DETECT); Coronavirus OC43 Not Detected (NOT DETECT); Human Metapneumovirus Not Detected (NOT DETECT); Human Rhinovirus/Enterovirus Not Detected (NOT DETECT); Influenza A/2009-H1 Not Detected (NOT DETECT); Influenza A/H1 Not Detected (NOT DETECT); Influenza A/H3 Not Detected (NOT DETECT); Influenza B Not Detected (NOT DETECT); Mycoplasma pneumoniae Not Detected (NOT DETECT); Parainfluenza Virus 1 Not Detected (NOT DETECT); Parainfluenza Virus 2 Not Detected (NOT DETECT); Parainfluenza Virus 3 Not Detected (NOT DETECT); Parainfluenza Virus 4 Not Detected (NOT DETECT); Respiratory Syncytial Virus Not Detected (NOT DETECT)
[2019-04-24 10:43] LABS: Appearance, Urine Hazy (Clear); Bacteria Few /hpf; Color, Urine Yellow (P-Yellow); Squamous Epithelial Cells Few /hpf (Few)
[2019-04-24 11:04] LABS: International Normalized Ratio 2.6; Prothrombin Time Results 26.4 Sec (9.7-11.5)
[2019-04-24] MEDS ORDERED: NEBI10 PO (11:10)
[2019-04-24] MEDS ORDERED: DILT60 PO (11:13)
[2019-04-24] MEDS ORDERED: MYRBETRIQ25 MG PO (11:43)
[2019-04-24] MEDS ORDERED: Synthroid200 MCG PO (11:43)
[2019-04-24] MEDS ORDERED: TOPROL XL50 M1 PO (11:44)
--- NOTE | 2019-04-24 17:51 | NUR ---
NOTE PT ALERT AND ORIENTED TO SELF, PLACE. SHE STILL ASKS FOR THINGS FROM HER ROOM THAT IS JUST DOWN THE [place] BUT SHE CAN STATE THAT SHE IS IN [place]. PT AGREED TO NASEL/ORAL SWABS DONE BY DR BREWER ONLY. SHE HAS REFUSED THE ORAL LEVAGE. SHE IS TRYING TO COUGH UP A SPUTUM SAMPLE. CUP AT BEDSIDE. SWABS WALKED TO LAB. CARDIZEM GTT INFUSING AT 10MG/HR. HR 140'S. BP STABLE. CAUGHT PT UP ON HER MORNING MEDICATIONS PER ORDER. BP ELEVATED. PT REFUSED PERICARE AND ATTENDS CHANGE AT THIS TIME. MEDICATED FOR CHRONIC BACK PAIN WITH NORCO X1. CONTINUE POT.
--- NOTE | 2019-04-25 05:23 | NUR ---
SHIFT SUMMARY PT SLEEPING IN ROOM COMFORTABLY AT THIS TIME. NO ACUTE CHANGES IN STATUS T/O NIGHT. PT HAS SLEPT WELL T/O NIGHT. DENIED CP OR SOB T/O NIGHT. RESP EVEN UNLABORED ON RA W/ SATS >92%. PT REPORTED PAIN TO BACK WHICH IS CHRONIC, PT WAS MEDICATED TWICE PER EMAR FOR PAIN. PT REFUSED ATTENDS CHANGE LATE IN SHIFT REPORTS "I WANT TO SLEEP WE'LL DO IT LATER". PT REMINDED THAT WET ATTENDS ON HER SKIN WOULD CAUSE IRRTATION AND POSSIBLE SKIN BREAKDOWN. PT REPORTS UNDERSTANDING. DENIED OTHER NEEDS AT THIS TIME. PT REMAINS ON CARDIZEM GTT AT 10ML/HR HR REMAINS IN AFIB W/ AVG RATE OF 100-110'S. CALL LIGHT W/IN REACH.
[2019-04-25 05:30] LABS: BASOPHILS ABSOLUTE AUTO 0.03 K/mm3 (0.00-0.23); BASOPHILS PERCENT AUTO 0 % (0-2); EOSINOPHILS ABSOLUTE AUTO 0.03 K/mm3 (0.00-0.68); EOSINOPHILS PERCENT AUTO 0 % (0-6); Hemoglobin 11.9 g/dL (11.5-16.0); IMMATURE GRAN ABSOLUTE AUTO 0.06 K/mm3 (0.00-0.10); IMMATURE GRAN PERCENT AUTO 1 % (0-1); LYMPHOCYTES ABSOLUTE AUTO 2.28 K/mm3 (0.84-5.20); LYMPHOCYTES PERCENT AUTO 19 % (21-46); MONOCYTES ABSOLUTE AUTO 0.49 K/mm3 (0.16-1.47); MONOCYTES PERCENT AUTO 4 % (4-13); Mean Corpuscular HGB 26.9 pg (26.0-34.0); Mean Corpuscular HGB Conc 30.5 g/dL (31.5-36.5); Mean Corpuscular Volume 88 fL (80-100); Mean Platelet Volume 9.9 fL (9.1-12.4); NEUTROPHILS ABSOLUTE AUTO 9.26 K/mm3 (1.96-9.15); NEUTROPHILS PERCENT AUTO 76 % (41-73); Platelet Count 295 K/mm3 (150-400); RDW Coefficient Variation 15.8 % (11.7-14.2); RDW Standard Deviation 51.4 fL (35.1-46.3); Red Blood Cell Count 4.43 M/mm3 (3.80-5.20); White Blood Cell Count 12.15 K/mm3 (4.00-11.30)
[2019-04-25 05:43] LABS: International Normalized Ratio 2.6; Prothrombin Time Results 26.4 Sec (9.7-11.5)
[2019-04-25 06:00] LABS: Alanine Aminotransfer (ALT/SGP 12 U/L (12-78); Albumin, Blood 2.8 g/dL (3.4-5.0); Albumin/Globulin Ratio 0.6 (0.8-1.8); Alk Phos 140 U/L (50-136); Anion Gap 7 mmol/L (6-16); Aspartate Aminotrans (AST/SGOT 12 U/L (12-37); Bilirubin, Total 1.1 mg/dL (0.1-1.0); Blood Urea Nitrogen 27 mg/dL (8-24); Bun/Creatinine Ratio 37.3 (12.0-20.0); CO2, Blood 29 mmol/L (21-32); Calcium, Blood 9.3 mg/dL (8.5-10.1); Chloride, Blood 104 mmol/L (98-108); Creatinine, Blood 0.72 mg/dL (0.40-1.00); Globulin, Blood 4.8 g/dL (2.2-4.0); Glomerular Filtration Rate >60 (60-); Glucose, Blood 133 mg/dL (70-99); Potassium, Blood 3.7 mmol/L (3.5-5.5); Sodium, Blood 140 mmol/L (136-145); Total Protein, Blood 7.6 g/dL (6.4-8.2)
--- NOTE | 2019-04-25 14:38 | NUR ---
PT REFUSING CARE THIS AFTERNOON; ENTERED PT ROOM AT APPOX 1250 PT STATES "DO NOT TOUCH ME, I WANT TO YOU OUT OF MY ROOM." PT EDUCATED ON SKIN BREAKDOWN AND PRESSURE ULCER PREVENTION; PT CONTINUES TO REFUSE CARE. THIS RN AND TABITHA MENDOZA EXITED ROOM; MARY ROME AND MARIANN LU ATTEMPTED TO CARE FOR PATIENT AND WHERE ALSO REFUSED. WILL CONTINUE TO MONITOR AND ATTEMPT TO PROVIDE PATIENT CARE.
--- NOTE | 2019-04-25 15:10 | NUR ---
DR SIMPSON AT BEDSIDE, PT YELLING "DR ADAM GET OUT!" THIS RN TO ROOM TO DO VITALS AND ATTEMPT PT CARE; PT STATES " GET OUT OF MY ROOM", PT CONTINUES TO REFUSE CARE. WILL CONTINUE TO MONITOR AND ATTEMPT TO PROVIDE CARE.
--- NOTE | 2019-04-25 16:44 | NUR ---
PT AGREES TO ALLOW STAFF TO CHANGE ATTENDS AND TAKE VS. PT CLEANED, ATTENDS CHANGED, LINEN CHANGED AND VITAL SIGNS TAKEN. WILL CONTINUE TO MONITOR.
--- NOTE | 2019-04-25 18:26 | NUR ---
SHIFT SUMMARY PT A&Ox3 WITH INTERMITTENT CONFUSION AND IRRITABILITY. PT ANXIOUS AND REFUSING CARE FOR MAJORITY OF SHIFT, YELLING AT STAFF "DONT YOU TOUCH ME" AND "GET OUT OF MY ROOM". PT REPORTS BACK PAIN, REFUSING PAIN MEDICATIONS T/O SHIFT. SPO2 >90% ON RA FOR MAJORITY OF SHIFT. PT DENIES NASUEA, DIZZINES AND CHEST PAIN. PT REFUSING TURING, CHANGING, PERSONAL CARE AND NOON VITAL SIGNS. PT ON TELE AFIB 70-120'S, PT ON CARDIZEM GTT AT 10MG/HR FOR MAJORITY OF SHIFT. PT RECEIVING IV ANTIBIOTICS AND PO LASIX. VSS. DR URIBE ORDERED CHEST CT; NOTIFIED PT OF TEST AND EDUCATED ON PURPOSE OF TEST; PT REFUSING PROCEDUE, NOTIFEID DR URIBE. NO OTHER ACUTE CHANGES NOTED DURING SHIFT. WILL CONTINUE TO MONITOR UNTIL REPORT GIVEN TO ONCOMING RN.
--- NOTE | 2019-04-25 20:43 | NUR ---
CARE ASSUMPTION PT A&O X4 W/ FLAT AFFECT. VSS. SPO2 > 92% ON RA. MONITOR SHOWS AFIB, HR 80's-110. CARDIZEM GTT INFUSING @ 10 MLS/HR. PT L ARM W/ REDNESS AND SWELLING. PT REPORTS PREVIOUS IV TO BE THE CAUSE. L ARM ELEVATED ON PILLOW. PT C/O PAIN T/O L ARM W/ ANY MOVEMENT OR TOUCHING. WHEN ASKING PT IF ATTENDS IS WET PT REPORTS "IT IS A LITTLE. I PEED ONCE." PT REFUSING ATTENDS CHANGE STATING "I DON'T WANT TO MOVE. I DON'T WANT TO BE TOUCHED." PT INFORMED IT IS NOT APPROPRIATE/SAFE FOR PT'S SKIN TO REMAIN IN SOILED ATTENDS. PT STILL REFUSING CARE. WILL CONTINUE TO MONITOR AND PROVIDE CARE.
--- NOTE | 2019-04-26 00:16 | NUR ---
UPDATE PT REFUSES MELANIE CARE & ATTENDS CHANGES, STATING "I'M JUST GOING TO PEE AGAIN, I DON'T WANT TO." PT HOWEVER HAS ALLOWED MELANIE CARE, ATTENDS CHANGES & REPOSITIONING X2 THIS SHIFT SO FAR W/ FIRM EDUCATION & ENCOURAGING PROVIDED.
[2019-04-26 04:05] LABS: BASOPHILS ABSOLUTE AUTO 0.02 K/mm3 (0.00-0.23); BASOPHILS PERCENT AUTO 0 % (0-2); EOSINOPHILS ABSOLUTE AUTO 0.21 K/mm3 (0.00-0.68); EOSINOPHILS PERCENT AUTO 2 % (0-6); Hematocrit 36.9 % (33.0-51.0); Hemoglobin 11.3 g/dL (11.5-16.0); IMMATURE GRAN ABSOLUTE AUTO 0.04 K/mm3 (0.00-0.10); IMMATURE GRAN PERCENT AUTO 0 % (0-1); LYMPHOCYTES ABSOLUTE AUTO 2.49 K/mm3 (0.84-5.20); LYMPHOCYTES PERCENT AUTO 20 % (21-46); MONOCYTES ABSOLUTE AUTO 1.03 K/mm3 (0.16-1.47); MONOCYTES PERCENT AUTO 8 % (4-13); Mean Corpuscular HGB 26.5 pg (26.0-34.0); Mean Corpuscular HGB Conc 30.6 g/dL (31.5-36.5); Mean Corpuscular Volume 86 fL (80-100); NEUTROPHILS ABSOLUTE AUTO 8.57 K/mm3 (1.96-9.15); NEUTROPHILS PERCENT AUTO 69 % (41-73); Platelet Count 292 K/mm3 (150-400); RDW Coefficient Variation 16.1 % (11.7-14.2); RDW Standard Deviation 50.8 fL (35.1-46.3); Red Blood Cell Count 4.27 M/mm3 (3.80-5.20); White Blood Cell Count 12.36 K/mm3 (4.00-11.30)
[2019-04-26 04:28] LABS: Alanine Aminotransfer (ALT/SGP 11 U/L (12-78); Albumin, Blood 2.5 g/dL (3.4-5.0); Albumin/Globulin Ratio 0.5 (0.8-1.8); Alk Phos 124 U/L (50-136); Anion Gap 6 mmol/L (6-16); Aspartate Aminotrans (AST/SGOT 10 U/L (12-37); Bilirubin, Total 1.1 mg/dL (0.1-1.0); Blood Urea Nitrogen 30 mg/dL (8-24); Bun/Creatinine Ratio 35.3 (12.0-20.0); CO2, Blood 30 mmol/L (21-32); Calcium, Blood 9.2 mg/dL (8.5-10.1); Chloride, Blood 106 mmol/L (98-108); Creatinine, Blood 0.85 mg/dL (0.40-1.00); Globulin, Blood 4.6 g/dL (2.2-4.0); Glomerular Filtration Rate >60 (60-); Glucose, Blood 101 mg/dL (70-99); Magnesium, Blood 1.9 mg/dL (1.6-2.4); Phosphorus, Blood 3.1 mg/dL (2.5-4.9); Potassium, Blood 3.4 mmol/L (3.5-5.5); Sodium, Blood 142 mmol/L (136-145); Total Protein, Blood 7.1 g/dL (6.4-8.2)
--- NOTE | 2019-04-26 06:13 | NUR ---
SHIFT SUMMARY PT CONTINUES TO BE A&O X4 W/ FLAT AFFECT, INITIALLY REFUSING CARE, REQUIRING CONTINUED EDUCATION & ENCOURAGEMENT. PT'S SKIN IN GROIN AREA RED AND EXCORIATED. PT ENCOURAGED AND EDUCATED TO ALLOW STAFF TO KEEP SKIN CLEAN & DRY. PT COOPERATIVE W/ ENCOURAGEMENT. L UPPER ARM W/ SWELLING AND REDNESS D/T REPORT OF PREVIOUS IV INFILTRATION. L ARM ELEVATED ON 2 PILLOWS. PT C/O L ARM TENDERNESS. MONITOR SHOWS AFIB, HR 75-110. CARDIZEM GTT INFUSING @ 10 MLS/HR. WILL CONTINUE TO MONITOR AND PROVIDE CARE UNTIL REPORT OFF TO DAY SHIFT RN.
[2019-04-26 08:49] LABS: International Normalized Ratio 2.74; Prothrombin Time Results 27.7 Sec (9.7-11.5)
--- NOTE | 2019-04-26 10:50 | NUR ---
THIS RN TO ROOM AT APPROX 1010; PT REPORTS HE WAS FALLING ASLEEP, STARTED FEELING DIZZY AND FELT IF HIS THOART CLOSED; WHICH LEAD TO A COUGHING EPISODE AND SPUTUM/MUCUS PRODUCTION; SPO2 IN LOW 80'S WHEN THIS RN TO ROOM, AIRVO WAS REMOVED TO CLEAN MUCUS, ONCE REPLACED PT INSTRUCTED ON BREATHING AND SPO2 INCREASED TO 95%. PT ON AIRVO AT 55L AT 77% FIO2. WILL CONTINUE TO MONITOR.
--- NOTE | 2019-04-26 19:52 | NUR ---
SHIFT SUMMARY PT A&Ox3; PT CALM AND DIANE COOPERATIVE WITH CARE DURING SHIFT; PT ALLOWING PERSON CARE, ATTENDS CHANGES AND REPOSITIONING MORE OFTER THEN PREVIOSU DAY. PT SPEAKING WITH STAFF T/O SHIFT' CALM AND PLEASANT. PT REPORTS GENERALIZED AND BACK PAIN, DENIES NEEDS FOR MEDICATIONS T/O SHIFT. PT SOB WITH EXERTION, SPO2 >90% ON RA, LS DIM T/O. PT DENIES NAUSEA, CHEST PAIN/PRESSURE AND DIZZINESS T/O SHIFT. PT RECEIVING IV ANTIBIOTICS. PT TRANSITIONED FROM IV CARDIZEM GTT TO PO CARDIZEM PER ORDERS. PT COMPLETED CHEST CT DURING SHIFT. VSS. NO OTHER ACUTE CHANGES NOTED DURING SHIFT. REPORT GIVEN TO ONCOMING RN.
[2019-04-27 04:08] LABS: BASOPHILS ABSOLUTE AUTO 0.04 K/mm3 (0.00-0.23); BASOPHILS PERCENT AUTO 0 % (0-2); EOSINOPHILS ABSOLUTE AUTO 0.12 K/mm3 (0.00-0.68); EOSINOPHILS PERCENT AUTO 1 % (0-6); Hematocrit 36.4 % (33.0-51.0); Hemoglobin 11.1 g/dL (11.5-16.0); IMMATURE GRAN ABSOLUTE AUTO 0.04 K/mm3 (0.00-0.10); IMMATURE GRAN PERCENT AUTO 0 % (0-1); LYMPHOCYTES ABSOLUTE AUTO 2.69 K/mm3 (0.84-5.20); LYMPHOCYTES PERCENT AUTO 25 % (21-46); MONOCYTES PERCENT AUTO 8 % (4-13); Mean Corpuscular HGB 26.4 pg (26.0-34.0); Mean Corpuscular HGB Conc 30.5 g/dL (31.5-36.5); Mean Corpuscular Volume 87 fL (80-100); Mean Platelet Volume 9.7 fL (9.1-12.4); NEUTROPHILS ABSOLUTE AUTO 7.18 K/mm3 (1.96-9.15); NEUTROPHILS PERCENT AUTO 65 % (41-73); Platelet Count 262 K/mm3 (150-400); RDW Coefficient Variation 15.9 % (11.7-14.2); RDW Standard Deviation 50.3 fL (35.1-46.3); Red Blood Cell Count 4.21 M/mm3 (3.80-5.20); White Blood Cell Count 10.97 K/mm3 (4.00-11.30)
[2019-04-27 04:30] LABS: Calcium, Blood 8.7 mg/dL (8.5-10.1); Potassium, Blood 3.1 mmol/L (3.5-5.5)
[2019-04-27 04:38] LABS: International Normalized Ratio 2.93; Prothrombin Time Results 29.5 Sec (9.7-11.5)
--- NOTE | 2019-04-27 05:44 | NUR ---
SHIFT SUMMARY WANDY HAS BEEN PLEASANT AND COOPERATIVE THIS SHIFT. SHE HAS ALLOWED BRIEF CHANGES, BUT DECLINES REPOSITIONING. SKIN IN MELANIE AREA AND BETWEEN UPPER THIGHS RED AND EXCORIATED, IMPROVING. LEFT ARM ELEVATED ON PILLOWS. TELE SHOWS A-FIB 80'S TO LOW 100'S. SHE IS C/O NOT MUCH SLEEP OVERNIGHT. SHE USES HER CALL LIGHT APPROPRIATELY. SHE DENIES ANY CHEST PAIN, SOB, NUMBNESS OR TINGLING. WILL REPORT TO DAY SHIFT RN.
--- NOTE | 2019-04-27 17:29 | NUR ---
SHIFT NOTE PT HAD REPORTED THAT SHE HAS NOT SLEPT WELL SINCE BEING ADMITTED TO PCU, PT WAS WITNESSED TO HAVE SLEPT MOST OF THIS SHIFT. PT ALERT, LAUGHS AND JOKES WITH STAFF WHEN IN THE ROOM. AFEBRILE T/O SHIFT, VSS. PER HOSPITALIST PT WILL STATUS CHANGE TOMORROW TO MEDICAL FLOOR. PT HAS BE AGREEABLE TO CHANGING ATTENDS AND REPOSITIONING DURING THIS SHIFT.
[2019-04-27 18:10] LABS: Vancomycin, Trough 21.4 ug/mL (5.0-10.0)
--- NOTE | 2019-04-27 20:00 | NUR ---
SHIFT ASSESSMENT PT IS ALERT AND ORIENTED AT THIS TIME. SHE IS PLESANT AND COOPERATIVE WITH HER CARE. SHE STATES SHE HAS NO PAIN AND OVERALL FEELS PRETTY GOOD. STATES HER BREATHING PATTERN IS MUCH MUCH BETTER AND IS HOPEFUL TO GO HOME TOMORROW. VITALS ARE STABLE AT THIS TIME. SHE HAS A POWERGLIDE TO THE RIGHT UPPER ARM. APPEARS TO BE PATENT. THERE IS NO BLOOD RETURN UPON DRAWING BACK. SHE STATES IT DOES BURN WITH THE VANCO RUNNING IN. WILL CON'T TO MONITOR CONDITION OF IV. PT'S SKIN OVERALL IS VERY DRY BUT INTACT. SHE STATES SHE ALWAYS HAS EDEMA AND DRY SKIN. WILL CON'T TO ENCOURAGE HER BEING TURNED. SHE STATES SHE DOES NOT LIKE TO BE TURNED OFTEN PROTOCOL CALLS FOR. CALL LIGHT IN REACH. WILL CON'T TO MONITOR PT T/O REMAINDER OF SHIFT. TALKED WITH LUKASZ MCMULLEN'S DAUGHTER AT THIS TIME.
--- NOTE | 2019-04-27 22:45 | NUR ---
ASSESSMENT PT CON'T TO BE PLESANT AND COOPERTIVE. NEW POWERGLIDE STARTED TO LEFT UPPER ARM BY NIDIA ERICKSON RN. PT TOLERATED THIS WELL. POWERGLIDE REMOVED TO RIGHT UPPER ARM BY THIS RN. PT DOES APPEAR TO HAVE SOME INFILTRATION TO RIGHT UPPER ARM. HOT PACK WAS MADE FOR PT TO USE. SHE IS REFUSING TO BE REPOSISTIONED AT THIS TIME. STATES SHE IS COMFORTABLE. WILL CON'T TO MONITOR PT. VITALS ARE STABLE.
[2019-04-28 05:52] LABS: BASOPHILS ABSOLUTE AUTO 0.04 K/mm3 (0.00-0.23); BASOPHILS PERCENT AUTO 0 % (0-2); EOSINOPHILS ABSOLUTE AUTO 0.08 K/mm3 (0.00-0.68); EOSINOPHILS PERCENT AUTO 1 % (0-6); Hematocrit 39.4 % (33.0-51.0); Hemoglobin 12.2 g/dL (11.5-16.0); IMMATURE GRAN ABSOLUTE AUTO 0.07 K/mm3 (0.00-0.10); IMMATURE GRAN PERCENT AUTO 1 % (0-1); LYMPHOCYTES ABSOLUTE AUTO 2.88 K/mm3 (0.84-5.20); LYMPHOCYTES PERCENT AUTO 19 % (21-46); MONOCYTES ABSOLUTE AUTO 1.05 K/mm3 (0.16-1.47); MONOCYTES PERCENT AUTO 7 % (4-13); Mean Corpuscular HGB 26.7 pg (26.0-34.0); Mean Corpuscular Volume 86 fL (80-100); Mean Platelet Volume 10.1 fL (9.1-12.4); NEUTROPHILS ABSOLUTE AUTO 10.74 K/mm3 (1.96-9.15); NEUTROPHILS PERCENT AUTO 72 % (41-73); Platelet Count 282 K/mm3 (150-400); RDW Coefficient Variation 15.9 % (11.7-14.2); RDW Standard Deviation 50.1 fL (35.1-46.3); Red Blood Cell Count 4.57 M/mm3 (3.80-5.20); White Blood Cell Count 14.86 K/mm3 (4.00-11.30)
--- NOTE | 2019-04-28 06:00 | NUR ---
SHIFT SUMMARY PT CON'T TO BE STABLE T/O NIGHT WITH NO CHANGES FROM BASELINE. PT STATES SHE DID GET ABOUT TWO HOURS OF SLEEP LAST NIGHT AND IS FEELING PRETTY GOOD. PT WAS ABLE TO HELP WITH HER ATTENDS CHANGE AND TURN. SHE DID HAVE A SMALL BM WIITH THIS CHANGE AND TURN. VITALS ARE STABLE THIS AM. LABS WERE DRAWN OFF POWER GLIDE WITH NO ISSUE. OFFERED PT ANOTOHER HOT PACK TO HELP WITH ARM INFILTRATION FROM IV, BUT SHE STATES IT FEELS FINE. WILL CON'T TO MONITOR PT AND KEEP SAFE TILL REPORT TO ONCOMING RN.
[2019-04-28 06:06] LABS: International Normalized Ratio 2.66; Prothrombin Time Results 26.9 Sec (9.7-11.5)
[2019-04-28 06:08] LABS: Anion Gap 5 mmol/L (6-16); Blood Urea Nitrogen 25 mg/dL (8-24); Bun/Creatinine Ratio 27.1 (12.0-20.0); CO2, Blood 30 mmol/L (21-32); Calcium, Blood 8.8 mg/dL (8.5-10.1); Chloride, Blood 107 mmol/L (98-108); Creatinine, Blood 0.92 mg/dL (0.40-1.00); Glomerular Filtration Rate >60 (60-); Glucose, Blood 115 mg/dL (70-99); Potassium, Blood 3.1 mmol/L (3.5-5.5); Sodium, Blood 142 mmol/L (136-145)
--- NOTE | 2019-04-28 17:59 | NUR ---
SHIFT NOTE PT WITH NO ACUTE CHANGES THIS SHIFT, PT REMAINS A/O X3, PT LAUGHING AND JOKING WITH STAFF T/O THE DAY. VSS. PT STS THE SHE FEELS THAT HER BREATHING IS IMPROVING, PT REMAINS WITH INTERMITTENT WET COUGH.
[2019-04-28 21:08] LABS: Vancomycin, Trough 21.2 ug/mL (5.0-10.0)
[2019-04-29 06:06] LABS: BASOPHILS ABSOLUTE AUTO 0.04 K/mm3 (0.00-0.23); BASOPHILS PERCENT AUTO 0 % (0-2); EOSINOPHILS PERCENT AUTO 2 % (0-6); Hematocrit 39.6 % (33.0-51.0); IMMATURE GRAN ABSOLUTE AUTO 0.04 K/mm3 (0.00-0.10); IMMATURE GRAN PERCENT AUTO 0 % (0-1); LYMPHOCYTES ABSOLUTE AUTO 2.36 K/mm3 (0.84-5.20); LYMPHOCYTES PERCENT AUTO 21 % (21-46); MONOCYTES ABSOLUTE AUTO 0.93 K/mm3 (0.16-1.47); MONOCYTES PERCENT AUTO 8 % (4-13); Mean Corpuscular HGB 26.3 pg (26.0-34.0); Mean Corpuscular HGB Conc 30.3 g/dL (31.5-36.5); Mean Corpuscular Volume 87 fL (80-100); Mean Platelet Volume 9.9 fL (9.1-12.4); NEUTROPHILS ABSOLUTE AUTO 7.76 K/mm3 (1.96-9.15); NEUTROPHILS PERCENT AUTO 68 % (41-73); Platelet Count 265 K/mm3 (150-400); RDW Standard Deviation 50.4 fL (35.1-46.3); Red Blood Cell Count 4.57 M/mm3 (3.80-5.20); White Blood Cell Count 11.33 K/mm3 (4.00-11.30)
[2019-04-29 06:19] LABS: International Normalized Ratio 2.27; Prothrombin Time Results 23.2 Sec (9.7-11.5)
[2019-04-29 06:25] LABS: Alanine Aminotransfer (ALT/SGP 10 U/L (12-78); Albumin, Blood 2.5 g/dL (3.4-5.0); Albumin/Globulin Ratio 0.6 (0.8-1.8); Alk Phos 107 U/L (50-136); Anion Gap 7 mmol/L (6-16); Aspartate Aminotrans (AST/SGOT 8 U/L (12-37); Bilirubin, Total 1.2 mg/dL (0.1-1.0); Blood Urea Nitrogen 21 mg/dL (8-24); Bun/Creatinine Ratio 24.1 (12.0-20.0); CO2, Blood 28 mmol/L (21-32); Calcium, Blood 8.9 mg/dL (8.5-10.1); Chloride, Blood 105 mmol/L (98-108); Creatinine, Blood 0.87 mg/dL (0.40-1.00); Globulin, Blood 4.4 g/dL (2.2-4.0); Glomerular Filtration Rate >60 (60-); Glucose, Blood 100 mg/dL (70-99); Potassium, Blood 3.4 mmol/L (3.5-5.5); Sodium, Blood 140 mmol/L (136-145); Total Protein, Blood 6.9 g/dL (6.4-8.2)
--- NOTE | 2019-04-29 07:30 | NUR ---
SHIFT SUMMARY PATIENT PLEASENT AND COOPERATIVE THROUGHOUT THE NIGHT. PATIENT TURNED FREQUENTLY. PATIENT LIKED SLEEPING WITH THE LIGHT ON AND ASKED FOR IT TO STAY ON LAST NIGHT. PATIENT APPEARED TO NAP ON AND OFF THROUGHOUT MOST OF THE NIGHT. PATIENT DENIED ANY PAIN OR DISCOMFORT LAST NIGHT. IV ABX GIVEN PER ORDERS. VITAL SIGNS CHARTED. REPORT GIVEN TO ONCOMING RN.
--- NOTE | 2019-04-29 18:45 | NUR ---
SHIFT NOTE PT HAS HAD NO ACUTE CHANGES TODAY, PT CONTINUES TO RST WELL IN ROOM. VSS. PT EXPRESSES DESIRE TO GO HOME. PER CONVERSATION WITH DR RIVERA PT WILL BE DC BACKTO CARE FACILITY ONCE SHE IS COVID 19 CLEARED. PT'S DAUGHTER JEANMARIE WAS CALLED BY [facility] THIS AM
--- NOTE | 2019-04-30 04:52 | NUR ---
END OF SHIFT SUMMARY NO ACUTE CHANGES THIS SHIFT. VSS. REMAINS IN COVID RULE OUT ISOLATION, AWAIING RESULTS. REMAINS IN AFIB, CONTROLLED. CONTINUES WITH NONPRODUCTIVE COUGH. PT REMAINS AXO. CONTINENCE CHECKS IN PLACE, PT DIURESING. CONTINUES TO BE VERY PLEASANT AND COOPERATIVE.
[2019-04-30 05:10] LABS: International Normalized Ratio 1.9; Prothrombin Time Results 19.6 Sec (9.7-11.5)
--- NOTE | 2019-04-30 13:43 | NUR ---
TRANSER TO RM325 PT REPORT CALLED. PT TO TRANSFER IN BED ACCOMPANIED BY E LEARNING DESIGNER/RN. PT AGREEABLE TO MOVE. CONTINUE POT.
--- NOTE | 2019-04-30 20:06 | NUR ---
END OF SHIFT SUMMARY: PATIENT TRANSFERED FROM THE PCU THIS AFTERNOON. ASSUMED CARE FROM AND RECEIVED REPORT FROM MITCHELL EDITOR IN CHIEF. PATIENT ALERT AND ORIENTED UPON ARRIVAL. REPORTS HER NECK PAIN IS "TOLERABLE". PATIENT DENIES NEED FOR INTERVENTION. PATIENT HAS BRIGHT RED IRRITATION ON HER UPPER THIGHS AND GROIN. OBTAINED ORDER FROM DR. BROOKS FOR NYSTATIN CREAM. PATIENT EXPRESSED CONCERNS OVER RECURRING UTI'S. ENCOURAGED PATIENT TO DISCUSS WITH THE MD TOMORROW. DISCUSSED INCREASING FLUID INTAKE. DISCUSSED THIS CONCERN WITH THE NOC RN. PATIENT REPORTS THAT SHE IS STILL NOT FEELING COMPLETELY BETTER BUT THAT SHE IS LOOKING FORWARD TO GOING HOME.
--- NOTE | 2019-05-01 03:30 | NUR ---
SAND CUTTER OPERATOR SUMMARY PT A/O X4. PLEASANT AND COOPERATIVE. PT HAS BEEN HAVING PRODUCTIVE COUGH THROUGHOUT THE NIGHT. YELLOW SPUTUM PER PT REPORT. NO ACUTE CHANGES. VSS. DENIES CHEST PAIN, NAUSEA, SOB. CALL LIGHT WITHIN REACH.
[2019-05-01 05:48] LABS: International Normalized Ratio 1.82; Prothrombin Time Results 18.8 Sec (9.7-11.5)
[2019-05-01] MEDS ORDERED: TROSPIUM CHLORI20 MG (14:55)
[2019-05-01] MEDS ORDERED: METO2.5 PO (14:55)
[2019-05-01] MEDS ORDERED: LEVO750 PO (14:55)
--- NOTE | 2019-05-01 15:05 | NUR ---
REPORT [facility]IV[facility] TO [facility]. ANSWER ALL QUESTIONS. W/C TO VISCOSITY TESTER AT 1530.
== END 2019-05-01 15:36 | DRG 193 ==
LOC: ER 07:32 → PCU 14:22 → MEDS 14:22 → PCU 14:26 → ER 14:26 → PCU 15:05 → MEDS 04-30 14:37
PROVIDERS: Emergency Medicine; Internal Medicine; Pharmacist; ADMIT Hospitalist
DX: J18.9 Pneumonia, unspecified organism (principal); G92 Toxic encephalopathy; J96.01 Acute respiratory failure with hypoxia; I50.33 Acute on chronic diastolic (congestive) heart failure; N39.0 Urinary tract infection, site not specified; I48.21 Permanent atrial fibrillation; Z68.43 Body mass index [BMI] 50.0-59.9, adult; C90.00 Multiple myeloma not having achieved remission; I13.0 Hypertensive heart and chronic kidney disease with heart failure and stage 1 through stage 4 chronic kidney disease, or unspecified chronic kidney disease; E66.01 Morbid (severe) obesity due to excess calories; E03.9 Hypothyroidism, unspecified; N18.3 Chronic kidney disease, stage 3 (moderate); E11.22 Type 2 diabetes mellitus with diabetic chronic kidney disease; G47.33 Obstructive sleep apnea (adult) (pediatric); E87.6 Hypokalemia; B96.89 Other specified bacterial agents as the cause of diseases classified elsewhere
CPT/HCPCS: 0099U; 36415; 71045; 71250; 80048; 80053; 80202; 81001; 83605; 83735; 83880; 84100; 84145; 84484; 85025; 85379; 85610; 85730; 87040; 87077; 87086; 87186; 93005; 93010; 94640; 94760; 94762; 96365; 96366; 96367; 96375; 97110; 97161; 97165; 97530; 99285-25; C1751; J0456; J0696; J1956; J2543; J3370; J3480; J7050; P9612; U0002

== ENCOUNTER → 2019-05-05 | Outpatient (CLI) | payer MEDICARE ==
[~2019-05-05] MED LIST changes: +MYRBETRIQ25 MG PO; +Synthroid200 MCG PO; +TOPROL XL50 M1 PO; +TROSPIUM CHLORI20 MG
[2019-05-05 21:16] LABS: International Normalized Ratio 2.13; Prothrombin Time Results 21.8 Sec (9.7-11.5)
== END | disposition home or self-care (01) ==
LOC: EDSTATUS 11:16 → LAB UVN 20:43
PROVIDERS: Family Medicine
DX: I48.20 Chronic atrial fibrillation, unspecified (principal)
CPT/HCPCS: 85610

== ENCOUNTER → 2019-05-12 | Outpatient (CLI) | payer MEDICARE, OTHER ==
[~2019-05-12] MED LIST changes: +CEFP200 PO; +MELATONIN5 M1 PO; +Miralax17 GM PO
[2019-05-12 07:46] LABS: Prothrombin Time Results 77.3 Sec (9.7-11.5)
[2019-05-12 08:16] LABS: International Normalized Ratio 8.13
== END | disposition home or self-care (01) ==
LOC: LAB UVN 07:12 → EDSTATUS 10:59
PROVIDERS: Hospitalist
DX: R79.9 Abnormal finding of blood chemistry, unspecified (principal)
CPT/HCPCS: 85610

== ENCOUNTER → 2019-05-22 | Outpatient (CLI) | payer MEDICARE, OTHER ==
[2019-05-22 04:45] LABS: International Normalized Ratio 2.88
== END | disposition home or self-care (01) ==
LOC: LAB UVN 04:15 → EDSTATUS 11:24
PROVIDERS: Family Medicine
DX: I48.20 Chronic atrial fibrillation, unspecified (principal)
CPT/HCPCS: 85610

== ENCOUNTER → 2019-05-23 | Outpatient (CLI) | payer MEDICARE ==
[~2019-05-23] MED LIST changes: -CEFP200 PO; -MELATONIN5 M1 PO; -Miralax17 GM PO
[2019-05-23 11:01] LABS: Albumin, Blood 2.8 g/dL (3.4-5.0); Albumin/Globulin Ratio 0.6 (0.8-1.8); Bilirubin, Total 1.2 mg/dL (0.1-1.0); Bun/Creatinine Ratio 35.8 (12.0-20.0); Calcium, Blood 9.7 mg/dL (8.5-10.1); Creatinine, Blood 1.34 mg/dL (0.40-1.00); Globulin, Blood 4.7 g/dL (2.2-4.0); Potassium, Blood 5.4 mmol/L (3.5-5.5); Total Protein, Blood 7.5 g/dL (6.4-8.2)
[2019-05-25 14:11] LABS: A/G RATIO 0.9 (0.7-1.7); ALBUMIN 2.8 g/dL (2.9-4.4); ALPHA-1-GLOBULIN 0.3 g/dL (0.0-0.4); BETA GLOBULIN 0.9 g/dL (0.7-1.3); GAMMA GLOBULIN 1.3 g/dL (0.4-1.8); GLOBULIN, TOTAL 3.5 g/dL (2.2-3.9); IMMUNOGLOBULIN A, QN, SERUM 435 mg/dL (64-422); IMMUNOGLOBULIN G, QN, SERUM 1277 mg/dL (586-1602); IMMUNOGLOBULIN M, QN, SERUM 77 mg/dL (26-217); M-SPIKE Not Observed g/dL (Not Observed); PROTEIN, TOTAL, SERUM 6.3 g/dL (6.0-8.5)
== END | disposition home or self-care (01) ==
LOC: LAB 09:20 → LAB SHORT 09:20
PROVIDERS: Family Medicine
DX: C90.02 Multiple myeloma in relapse (principal); I50.32 Chronic diastolic (congestive) heart failure
CPT/HCPCS: 80053; 82784; 83883; 84155; 84165; 86334

== ENCOUNTER → 2019-05-29 | Outpatient (CLI) | payer MEDICARE, OTHER ==
[~2019-05-29] MED LIST changes: +CEFP200 PO; +MELATONIN5 M1 PO; +Miralax17 GM PO
[2019-05-29 05:17] LABS: International Normalized Ratio 5.78
== END | disposition home or self-care (01) ==
LOC: LAB UVN 04:41 → EDSTATUS 13:03
PROVIDERS: Family Medicine
DX: I48.20 Chronic atrial fibrillation, unspecified (principal)
CPT/HCPCS: 85610

== ENCOUNTER 2019-05-31 21:54 | Emergency (ER) | payer MEDICARE, OTHER ==
[~2019-05-31] VITALS: Ht 170.2 cm; Wt 149.7 kg
[~2019-05-31 21:54] MED LIST changes: -CEFP200 PO; -MELATONIN5 M1 PO; -Miralax17 GM PO
[2019-05-31] MEDS ORDERED: WARF5 PO (22:15)
[2019-05-31] MEDS ORDERED: HYDCOR10 PO (22:19)
[2019-05-31] MEDS ORDERED: MELATONIN5 M1 PO (22:23)
[2019-06-01] MEDS ORDERED: CEFP200 PO (00:19)
[2019-06-01] MEDS ORDERED: Miralax17 GM PO (00:19)
== END 2019-06-01 00:54 | disposition home or self-care (01) ==
LOC: ER 21:54
DX: N39.0 Urinary tract infection, site not specified (principal); K59.00 Constipation, unspecified; I10 Essential (primary) hypertension; Z88.8 Allergy status to other drugs, medicaments and biological substances; Z79.899 Other long term (current) drug therapy; Z79.82 Long term (current) use of aspirin; Z79.01 Long term (current) use of anticoagulants
CPT/HCPCS: 36415; 74018; 96365; 96375; 99284-25; J0696; J2405

== ENCOUNTER → 2019-06-06 | Outpatient (CLI) | payer MEDICARE, OTHER ==
[~2019-06-06] MED LIST changes: +CEFP200 PO; +MELATONIN5 M1 PO; +Miralax17 GM PO
[2019-06-06 15:59] LABS: Prothrombin Time Results 51.2 Sec (9.7-11.5)
[2019-06-06 16:18] LABS: International Normalized Ratio 5.26
== END | disposition home or self-care (01) ==
LOC: EDSTATUS 09:28 → LAB UVN 14:10
PROVIDERS: Hospitalist
DX: I48.20 Chronic atrial fibrillation, unspecified (principal)
CPT/HCPCS: 85610

== ENCOUNTER → 2019-06-16 | Outpatient (CLI) | payer MEDICARE, OTHER ==
[2019-06-16 18:32] LABS: International Normalized Ratio 2.88
== END | disposition home or self-care (01) ==
LOC: EDSTATUS 10:54 → LAB UVN 17:09
PROVIDERS: Family Medicine
DX: I48.20 Chronic atrial fibrillation, unspecified (principal)
CPT/HCPCS: 85610

== ENCOUNTER → 2019-06-18 | Outpatient (CLI) | payer MEDICARE, OTHER ==
[2019-06-18 05:23] LABS: BASOPHILS ABSOLUTE AUTO 0.08 K/mm3 (0.00-0.23); BASOPHILS PERCENT AUTO 1 % (0-2); EOSINOPHILS PERCENT AUTO 7 % (0-6); Hematocrit 48.7 % (33.0-51.0); Hemoglobin 15.4 g/dL (11.5-16.0); IMMATURE GRAN ABSOLUTE AUTO 0.03 K/mm3 (0.00-0.10); IMMATURE GRAN PERCENT AUTO 0 % (0-1); LYMPHOCYTES ABSOLUTE AUTO 4.35 K/mm3 (0.84-5.20); LYMPHOCYTES PERCENT AUTO 37 % (21-46); MONOCYTES ABSOLUTE AUTO 1.12 K/mm3 (0.16-1.47); MONOCYTES PERCENT AUTO 10 % (4-13); Mean Corpuscular HGB 26.3 pg (26.0-34.0); Mean Corpuscular HGB Conc 31.6 g/dL (31.5-36.5); Mean Corpuscular Volume 83 fL (80-100); Mean Platelet Volume 10.9 fL (9.1-12.4); NEUTROPHILS ABSOLUTE AUTO 5.47 K/mm3 (1.96-9.15); NEUTROPHILS PERCENT AUTO 46 % (41-73); Platelet Count 237 K/mm3 (150-400); RDW Coefficient Variation 18.7 % (11.7-14.2); RDW Standard Deviation 54.7 fL (35.1-46.3); Red Blood Cell Count 5.85 M/mm3 (3.80-5.20); White Blood Cell Count 11.85 K/mm3 (4.00-11.30)
== END | disposition home or self-care (01) ==
LOC: LAB UVN 05:18 → EDSTATUS 10:57
PROVIDERS: Family Medicine
DX: R44.2 Other hallucinations (principal)
CPT/HCPCS: 85025

== ENCOUNTER → 2019-06-26 | Outpatient (CLI) | payer MEDICARE, OTHER ==
[2019-06-26 18:18] LABS: International Normalized Ratio 2.1; Prothrombin Time Results 21.5 Sec (9.7-11.5)
== END ==
LOC: LAB SHORT 11:50 → LAB 11:50
PROVIDERS: Family Medicine
DX: N18.3 Chronic kidney disease, stage 3 (moderate) (principal); I48.20 Chronic atrial fibrillation, unspecified; M54.5 Low back pain
CPT/HCPCS: 82306; 85610

== ENCOUNTER → 2019-07-03 | Outpatient (CLI) | payer MEDICARE, OTHER ==
[2019-07-03 05:42] LABS: International Normalized Ratio 3.4; Prothrombin Time Results 33.9 Sec (9.7-11.5)
== END | disposition home or self-care (01) ==
LOC: LAB UVN 05:21 → EDSTATUS 11:30
PROVIDERS: Internal Medicine Nephrology
DX: N18.9 Chronic kidney disease, unspecified (principal); D63.1 Anemia in chronic kidney disease
CPT/HCPCS: 85610

== ENCOUNTER → 2019-07-12 | Outpatient (CLI) | payer MEDICARE, OTHER ==
[2019-07-12 06:39] LABS: BASOPHILS ABSOLUTE AUTO 0.06 K/mm3 (0.00-0.23); BASOPHILS PERCENT AUTO 1 % (0-2); EOSINOPHILS ABSOLUTE AUTO 0.58 K/mm3 (0.00-0.68); EOSINOPHILS PERCENT AUTO 6 % (0-6); Hemoglobin 14.7 g/dL (11.5-16.0); IMMATURE GRAN ABSOLUTE AUTO 0.03 K/mm3 (0.00-0.10); IMMATURE GRAN PERCENT AUTO 0 % (0-1); LYMPHOCYTES ABSOLUTE AUTO 2.95 K/mm3 (0.84-5.20); LYMPHOCYTES PERCENT AUTO 29 % (21-46); MONOCYTES PERCENT AUTO 10 % (4-13); Mean Corpuscular HGB 27.2 pg (26.0-34.0); Mean Corpuscular Volume 85 fL (80-100); Mean Platelet Volume 10.7 fL (9.1-12.4); NEUTROPHILS ABSOLUTE AUTO 5.49 K/mm3 (1.96-9.15); NEUTROPHILS PERCENT AUTO 54 % (41-73); Platelet Count 235 K/mm3 (150-400); RDW Coefficient Variation 19.9 % (11.7-14.2); RDW Standard Deviation 59.8 fL (35.1-46.3); White Blood Cell Count 10.11 K/mm3 (4.00-11.30)
[2019-07-12 06:54] LABS: Magnesium, Blood 2.4 mg/dL (1.6-2.4)
[2019-07-12 07:01] LABS: Albumin, Blood 2.4 g/dL (3.4-5.0); Albumin/Globulin Ratio 0.6 (0.8-1.8); Bilirubin, Total 0.9 mg/dL (0.1-1.0); Bun/Creatinine Ratio 25.2 (12.0-20.0); Creatinine, Blood 1.63 mg/dL (0.40-1.00); Globulin, Blood 3.9 g/dL (2.2-4.0); Potassium, Blood 6.3 mmol/L (3.5-5.5); Total Protein, Blood 6.3 g/dL (6.4-8.2)
[2019-07-12 07:02] LABS: Prothrombin Time Results 47.7 Sec (9.7-11.5)
[2019-07-12 07:04] LABS: International Normalized Ratio 4.88
== END | disposition home or self-care (01) ==
LOC: LAB 05:30 → LAB UVN 05:30
PROVIDERS: Hospitalist
DX: D69.59 Other secondary thrombocytopenia (principal)
CPT/HCPCS: 80053; 83735; 85025; 85610

== ENCOUNTER → 2019-07-14 | Outpatient (CLI) | payer MEDICARE, OTHER ==
[~2019-07-14] MED LIST changes: +FLEET ENEMA133 ML PR; +FURO20 PO; +HYDACE10B PO; -Lasix80 MG PO; +MIRALAX17 GM PO; +Milk Of Ma400 MG/5 M PO; +ONDA4ODT MM; -TROSPIUM CHLORI20 MG; +TROSPIUM CHLORI20 MG PO; +Vitamin D2000 UNIT PO
[2019-07-14 06:19] LABS: Albumin, Blood 2.4 g/dL (3.4-5.0); Albumin/Globulin Ratio 0.6 (0.8-1.8); Bilirubin, Total 0.9 mg/dL (0.1-1.0); Bun/Creatinine Ratio 20.1 (12.0-20.0); Calcium, Blood 9.8 mg/dL (8.5-10.1); Creatinine, Blood 2.14 mg/dL (0.40-1.00); Magnesium, Blood 2.4 mg/dL (1.6-2.4); Potassium, Blood 4.7 mmol/L (3.5-5.5); Total Protein, Blood 6.4 g/dL (6.4-8.2)
[2019-07-14 12:43] LABS: BASOPHILS ABSOLUTE AUTO 0.08 K/mm3 (0.00-0.23); BASOPHILS PERCENT AUTO 1 % (0-2); EOSINOPHILS ABSOLUTE AUTO 0.94 K/mm3 (0.00-0.68); EOSINOPHILS PERCENT AUTO 8 % (0-6); Hematocrit 47.3 % (33.0-51.0); Hemoglobin 15.2 g/dL (11.5-16.0); IMMATURE GRAN ABSOLUTE AUTO 0.04 K/mm3 (0.00-0.10); IMMATURE GRAN PERCENT AUTO 0 % (0-1); LYMPHOCYTES ABSOLUTE AUTO 3.86 K/mm3 (0.84-5.20); LYMPHOCYTES PERCENT AUTO 35 % (21-46); MONOCYTES ABSOLUTE AUTO 0.98 K/mm3 (0.16-1.47); MONOCYTES PERCENT AUTO 9 % (4-13); Mean Corpuscular HGB 27.3 pg (26.0-34.0); Mean Corpuscular HGB Conc 32.1 g/dL (31.5-36.5); Mean Corpuscular Volume 85 fL (80-100); NEUTROPHILS ABSOLUTE AUTO 5.28 K/mm3 (1.96-9.15); NEUTROPHILS PERCENT AUTO 47 % (41-73); RDW Standard Deviation 58.1 fL (35.1-46.3); Red Blood Cell Count 5.57 M/mm3 (3.80-5.20); White Blood Cell Count 11.18 K/mm3 (4.00-11.30)
[2019-07-14 12:44] LABS: Mean Platelet Volume 10.9 fL (9.1-12.4)
== END | disposition home or self-care (01) ==
LOC: LAB UVN 04:00 → EDSTATUS 11:33
PROVIDERS: Hospitalist
DX: I12.9 Hypertensive chronic kidney disease with stage 1 through stage 4 chronic kidney disease, or unspecified chronic kidney disease (principal); E11.22 Type 2 diabetes mellitus with diabetic chronic kidney disease; N18.3 Chronic kidney disease, stage 3 (moderate); D63.1 Anemia in chronic kidney disease; I48.20 Chronic atrial fibrillation, unspecified; I50.32 Chronic diastolic (congestive) heart failure
CPT/HCPCS: 80053; 83735; 85025

== ENCOUNTER → 2019-07-17 | Outpatient (CLI) | payer MEDICARE, OTHER ==
[2019-07-17 18:19] LABS: Alanine Aminotransfer (ALT/SGP 12 U/L (12-78); Albumin, Blood 2.5 g/dL (3.4-5.0); Albumin/Globulin Ratio 0.6 (0.8-1.8); Alk Phos 128 U/L (50-136); Anion Gap 8 mmol/L (6-16); Aspartate Aminotrans (AST/SGOT 18 U/L (12-37); Bilirubin, Direct 0.3 mg/dL (0.0-0.3); Bilirubin, Indirect 0.6 mg/dL (0.1-0.7); Bilirubin, Total 0.9 mg/dL (0.1-1.0); Blood Urea Nitrogen 45 mg/dL (8-24); Bun/Creatinine Ratio 29.6 (12.0-20.0); CO2, Blood 28 mmol/L (21-32); Calcium, Blood 9.9 mg/dL (8.5-10.1); Chloride, Blood 97 mmol/L (98-108); Creatinine, Blood 1.52 mg/dL (0.40-1.00); Globulin, Blood 4.1 g/dL (2.2-4.0); Glomerular Filtration Rate 36 (60-); Glucose, Blood 95 mg/dL (70-99); Magnesium, Blood 1.9 mg/dL (1.6-2.4); Phosphorus, Blood 3.8 mg/dL (2.5-4.9); Potassium, Blood 3.7 mmol/L (3.5-5.5); Sodium, Blood 133 mmol/L (136-145); Total Protein, Blood 6.6 g/dL (6.4-8.2)
[2019-07-18 09:12] LABS: HBSAG SCREEN Negative (Negative); HCV ANTIBODY <0.1 (0.0-0.9)
[2019-07-20 13:10] LABS: ANTIMYELOPEROXIDASE (MPO) ABS <9.0 U/mL (0.0-9.0); ATYPICAL PANCA <1:20 titer (Neg:<1:20); CYTOPLASMIC (C-ANCA) <1:20 titer (Neg:<1:20); PERINUCLEAR (P-ANCA) <1:20 titer (Neg:<1:20)
[2019-07-20 14:10] LABS: ALBUMIN 2.6 g/dL (2.9-4.4); ALPHA-1-GLOBULIN 0.3 g/dL (0.0-0.4); ALPHA-2-GLOBULIN 0.9 g/dL (0.4-1.0); BETA GLOBULIN 0.6 g/dL (0.7-1.3); GLOBULIN, TOTAL 2.8 g/dL (2.2-3.9); IMMUNOFIXATION RESULT, SERUM Comment: (.); IMMUNOGLOBULIN A, QN, SERUM 346 mg/dL (64-422); IMMUNOGLOBULIN G, QN, SERUM 1053 mg/dL (586-1602); IMMUNOGLOBULIN M, QN, SERUM 49 mg/dL (26-217); M-SPIKE 0.2 g/dL (Not Observed); PROTEIN, TOTAL, SERUM 5.4 g/dL (6.0-8.5)
[2019-07-24 08:07] LABS: ANTIGLOMERULAR BM AB 5 units (0-20)
== END | disposition home or self-care (01) ==
LOC: LAB UVN 07:30 → EDSTATUS 11:38
PROVIDERS: Internal Medicine Nephrology
DX: N18.3 Chronic kidney disease, stage 3 (moderate) (principal); D63.1 Anemia in chronic kidney disease; N25.81 Secondary hyperparathyroidism of renal origin; E55.9 Vitamin D deficiency, unspecified; E78.00 Pure hypercholesterolemia, unspecified; R76.9 Abnormal immunological finding in serum, unspecified; R94.5 Abnormal results of liver function studies; R94.6 Abnormal results of thyroid function studies
CPT/HCPCS: 80053; 82248; 82784; 83516; 83520; 83735; 83883; 83970; 84100; 84132; 84155; 84165; 86038; 86256; 86317; 86334; 86335; 86803; 87340

== ENCOUNTER → 2019-07-19 | Outpatient (CLI) | payer MEDICARE, OTHER ==
[2019-07-19 16:15] LABS: International Normalized Ratio 1.45; Prothrombin Time Results 15.2 Sec (9.7-11.5)
== END | disposition home or self-care (01) ==
LOC: EDSTATUS 11:40 → LAB UVN 15:23
PROVIDERS: Hospitalist
DX: I48.20 Chronic atrial fibrillation, unspecified (principal)
CPT/HCPCS: 85610

== ENCOUNTER → 2019-07-20 | Outpatient (CLI) | payer MEDICARE, OTHER ==
[~2019-07-20] MED LIST changes: +DIGOX250 MCG PO; -HYDACE10B PO; +HYDR1TAB94 PO; +NYAMYC15 G1 TOP
[2019-07-20 10:48] LABS: Hematocrit 43.6 % (33.0-51.0); Mean Corpuscular HGB 27.3 pg (26.0-34.0); Mean Corpuscular HGB Conc 32.1 g/dL (31.5-36.5); Mean Corpuscular Volume 85 fL (80-100); Mean Platelet Volume 10.9 fL (9.1-12.4); Platelet Count 211 K/mm3 (150-400); RDW Coefficient Variation 19.5 % (11.7-14.2); RDW Standard Deviation 59.3 fL (35.1-46.3); Red Blood Cell Count 5.12 M/mm3 (3.80-5.20); White Blood Cell Count 9.91 K/mm3 (4.00-11.30)
[2019-07-20 11:01] LABS: International Normalized Ratio 1.48; Prothrombin Time Results 15.5 Sec (9.7-11.5)
[2019-07-20 11:13] LABS: Bun/Creatinine Ratio 31.6 (12.0-20.0); Calcium, Blood 8.6 mg/dL (8.5-10.1); Creatinine, Blood 1.55 mg/dL (0.40-1.00); Potassium, Blood 3.5 mmol/L (3.5-5.5)
== END | disposition home or self-care (01) ==
LOC: LAB UVN 09:30 → EDSTATUS 11:54
PROVIDERS: Internal Medicine Nephrology
DX: R94.5 Abnormal results of liver function studies (principal); R76.9 Abnormal immunological finding in serum, unspecified; E55.9 Vitamin D deficiency, unspecified; N25.81 Secondary hyperparathyroidism of renal origin; N18.3 Chronic kidney disease, stage 3 (moderate); I48.20 Chronic atrial fibrillation, unspecified; D63.1 Anemia in chronic kidney disease
CPT/HCPCS: 80048; 85027; 85610

== ENCOUNTER → 2019-08-28 | Outpatient (CLI) | payer MEDICARE, OTHER ==
[~2019-08-28] MED LIST changes: +FLEET ENEMA PR; -FLEET ENEMA133 ML PR
[2019-08-28 13:01] LABS: BASOPHILS ABSOLUTE AUTO 0.13 K/mm3 (0.00-0.23); BASOPHILS PERCENT AUTO 1 % (0-2); EOSINOPHILS ABSOLUTE AUTO 1.36 K/mm3 (0.00-0.68); EOSINOPHILS PERCENT AUTO 14 % (0-6); Hematocrit 45.6 % (33.0-51.0); IMMATURE GRAN ABSOLUTE AUTO 0.04 K/mm3 (0.00-0.10); IMMATURE GRAN PERCENT AUTO 0 % (0-1); LYMPHOCYTES ABSOLUTE AUTO 3.31 K/mm3 (0.84-5.20); LYMPHOCYTES PERCENT AUTO 33 % (21-46); MONOCYTES ABSOLUTE AUTO 0.87 K/mm3 (0.16-1.47); MONOCYTES PERCENT AUTO 9 % (4-13); Mean Corpuscular HGB 28.7 pg (26.0-34.0); Mean Corpuscular HGB Conc 30.7 g/dL (31.5-36.5); Mean Corpuscular Volume 93 fL (80-100); Mean Platelet Volume 10.9 fL (9.1-12.4); NEUTROPHILS ABSOLUTE AUTO 4.24 K/mm3 (1.96-9.15); NEUTROPHILS PERCENT AUTO 43 % (41-73); Platelet Count 189 K/mm3 (150-400); RDW Coefficient Variation 19.5 % (11.7-14.2); Red Blood Cell Count 4.88 M/mm3 (3.80-5.20); White Blood Cell Count 9.95 K/mm3 (4.00-11.30)
== END | disposition home or self-care (01) ==
LOC: LAB SHORT 12:48 → LAB 12:48
PROVIDERS: Internal Medicine Hematology & Oncology
DX: C90.02 Multiple myeloma in relapse (principal)
CPT/HCPCS: 85025

== ENCOUNTER → 2019-09-01 | Outpatient (CLI) | payer MEDICARE, OTHER ==
[2019-09-01 06:37] LABS: International Normalized Ratio 2.74; Prothrombin Time Results 27.7 Sec (9.7-11.5)
== END | disposition home or self-care (01) ==
LOC: LAB UVN 06:17 → EDSTATUS 15:32
PROVIDERS: Hospitalist
DX: I48.0 Paroxysmal atrial fibrillation (principal)
CPT/HCPCS: 85610

== ENCOUNTER → 2019-09-22 | Outpatient (CLI) | payer MEDICARE, OTHER ==
[2019-09-22 11:59] LABS: Albumin, Blood 2.5 g/dL (3.4-5.0); Anion Gap 7 mmol/L (6-16); Blood Urea Nitrogen 19 mg/dL (8-24); Bun/Creatinine Ratio 20.2 (12.0-20.0); CO2, Blood 30 mmol/L (21-32); Calcium, Blood 8.7 mg/dL (8.5-10.1); Chloride, Blood 100 mmol/L (98-108); Creatinine, Blood 0.94 mg/dL (0.40-1.00); Glomerular Filtration Rate >60 (60-); Glucose, Blood 83 mg/dL (70-99); Magnesium, Blood 2.2 mg/dL (1.6-2.4); Phosphorus, Blood 2.8 mg/dL (2.5-4.9); Potassium, Blood 3.6 mmol/L (3.5-5.5); Sodium, Blood 137 mmol/L (136-145)
== END | disposition home or self-care (01) ==
LOC: EDSTATUS 09:22 → LAB UVN 09:31
PROVIDERS: Hospitalist
DX: E87.6 Hypokalemia (principal); N18.3 Chronic kidney disease, stage 3 (moderate); D63.1 Anemia in chronic kidney disease
CPT/HCPCS: 80069; 83735; 85018

== ENCOUNTER → 2019-09-26 | Outpatient (CLI) | payer MEDICARE, OTHER ==
[2019-09-26 10:01] LABS: International Normalized Ratio 1.51; Prothrombin Time Results 15.8 Sec (9.7-11.5)
== END | disposition home or self-care (01) ==
LOC: LAB UVN 07:19 → EDSTATUS 09:26
PROVIDERS: Hospitalist
DX: I48.20 Chronic atrial fibrillation, unspecified (principal)
CPT/HCPCS: 85610

== ENCOUNTER → 2019-09-28 | Outpatient (CLI) | payer MEDICARE, OTHER ==
[2019-09-28 06:33] LABS: International Normalized Ratio 1.36; Prothrombin Time Results 14.3 Sec (9.7-11.5)
== END | disposition home or self-care (01) ==
LOC: LAB UVN 06:07 → EDSTATUS 09:28
PROVIDERS: Hospitalist
DX: I48.20 Chronic atrial fibrillation, unspecified (principal)
CPT/HCPCS: 85610

== ENCOUNTER → 2019-10-03 | Outpatient (CLI) | payer MEDICARE, OTHER ==
[2019-10-03 03:45] LABS: International Normalized Ratio 1.48; Prothrombin Time Results 15.5 Sec (9.7-11.5)
== END | disposition home or self-care (01) ==
LOC: LAB UVN 03:20 → EDSTATUS 09:30
PROVIDERS: Hospitalist
DX: D69.59 Other secondary thrombocytopenia (principal); I48.20 Chronic atrial fibrillation, unspecified; I50.32 Chronic diastolic (congestive) heart failure
CPT/HCPCS: 85610

== ENCOUNTER → 2019-10-08 | Outpatient (CLI) | payer MEDICARE, OTHER ==
[2019-10-08 05:56] LABS: International Normalized Ratio 1.86; Prothrombin Time Results 19.2 Sec (9.7-11.5)
== END | disposition home or self-care (01) ==
LOC: LAB UVN 05:36 → LAB 05:36 → EDSTATUS 09:31
PROVIDERS: Hospitalist
DX: I48.20 Chronic atrial fibrillation, unspecified (principal)
CPT/HCPCS: 85610

== ENCOUNTER → 2019-10-13 | Outpatient (CLI) | payer MEDICARE, OTHER ==
[2019-10-13 09:58] LABS: International Normalized Ratio 1.62; Prothrombin Time Results 16.9 Sec (9.7-11.5)
[2019-10-13 10:27] LABS: Albumin, Blood 2.9 g/dL (3.4-5.0); Anion Gap 7 mmol/L (6-16); Blood Urea Nitrogen 38 mg/dL (8-24); Bun/Creatinine Ratio 32.2 (12.0-20.0); CHOL/HDL RATIO 2.7; CO2, Blood 29 mmol/L (21-32); Calcium, Blood 9.2 mg/dL (8.5-10.1); Chloride, Blood 98 mmol/L (98-108); Cholesterol 133 mg/dL (50-200); Creatinine, Blood 1.18 mg/dL (0.40-1.00); Glomerular Filtration Rate 48 (60-); Glucose, Blood 84 mg/dL (70-99); HDL Cholesterol 49 mg/dL (>39); LDL/HDL RATIO 1.2; Low Density Lipoprotein Chol 58 mg/dL (0-110); Phosphorus, Blood 4.1 mg/dL (2.5-4.9); Potassium, Blood 4.3 mmol/L (3.5-5.5); Sodium, Blood 134 mmol/L (136-145); Triglycerides 128 mg/dL (30-160); Very Low Density Lipoprot Chol 25 mg/dL (6-32)
== END | disposition home or self-care (01) ==
LOC: LAB UVN 08:43 → EDSTATUS 13:43
PROVIDERS: Hospitalist
DX: N18.3 Chronic kidney disease, stage 3 (moderate) (principal); D63.1 Anemia in chronic kidney disease; E78.49 Other hyperlipidemia; E03.8 Other specified hypothyroidism
CPT/HCPCS: 80061; 80069; 84443; 85610

== ENCOUNTER → 2019-10-20 | Outpatient (CLI) | payer MEDICARE, OTHER ==
[2019-10-20 11:39] LABS: International Normalized Ratio 1.4; Prothrombin Time Results 14.7 Sec (9.7-11.5)
== END | disposition home or self-care (01) ==
LOC: LAB UVN 10:24 → EDSTATUS 11:11
PROVIDERS: Hospitalist
DX: I48.0 Paroxysmal atrial fibrillation (principal); I48.20 Chronic atrial fibrillation, unspecified
CPT/HCPCS: 85610

== ENCOUNTER → 2019-11-03 | Outpatient (CLI) | payer MEDICARE, OTHER ==
[2019-11-03 11:32] LABS: International Normalized Ratio 1.64; Prothrombin Time Results 17.1 Sec (9.7-11.5)
== END | disposition home or self-care (01) ==
LOC: LAB UVN 10:53 → EDSTATUS 11:25
PROVIDERS: Hospitalist
DX: I48.20 Chronic atrial fibrillation, unspecified (principal)
CPT/HCPCS: 85610

== ENCOUNTER → 2019-11-10 | Outpatient (CLI) | payer MEDICARE, OTHER ==
[2019-11-10 10:38] LABS: Albumin, Blood 3.1 g/dL (3.4-5.0); Anion Gap 7 mmol/L (6-16); Blood Urea Nitrogen 38 mg/dL (8-24); Bun/Creatinine Ratio 35.8 (12.0-20.0); CO2, Blood 28 mmol/L (21-32); Calcium, Blood 8.9 mg/dL (8.5-10.1); Chloride, Blood 103 mmol/L (98-108); Creatinine, Blood 1.06 mg/dL (0.40-1.00); Glomerular Filtration Rate 54 (60-); Glucose, Blood 78 mg/dL (70-99); Potassium, Blood 4.1 mmol/L (3.5-5.5); Sodium, Blood 138 mmol/L (136-145)
[2019-11-10 10:48] LABS: International Normalized Ratio 2.06; Prothrombin Time Results 21.2 Sec (9.7-11.5)
== END | disposition home or self-care (01) ==
LOC: LAB UVN 09:39 → EDSTATUS 14:57
PROVIDERS: Hospitalist
DX: I48.20 Chronic atrial fibrillation, unspecified (principal); N18.30 Chronic kidney disease, stage 3 unspecified
CPT/HCPCS: 80069; 85610

== ENCOUNTER → 2019-11-16 | Outpatient (CLI) | payer MEDICARE, OTHER ==
[2019-11-16 07:05] LABS: Bun/Creatinine Ratio 41.7 (12.0-20.0); Calcium, Blood 9.3 mg/dL (8.5-10.1); Creatinine, Blood 1.08 mg/dL (0.40-1.00)
[2019-11-16 07:10] LABS: International Normalized Ratio 1.87; Prothrombin Time Results 19.3 Sec (9.7-11.5)
== END | disposition home or self-care (01) ==
LOC: US 10-26 08:00 → LAB UVN 06:42 → EDSTATUS 16:00 → US 16:00
PROVIDERS: Hospitalist
DX: E07.89 Other specified disorders of thyroid (principal); E88.09 Other disorders of plasma-protein metabolism, not elsewhere classified; E87.6 Hypokalemia
CPT/HCPCS: 80048; 85610

== ENCOUNTER → 2019-11-20 | Outpatient (CLI) | payer MEDICARE, OTHER ==
[2019-11-20 13:21] LABS: BASOPHILS ABSOLUTE AUTO 0.09 K/mm3 (0.00-0.23); BASOPHILS PERCENT AUTO 1 % (0-2); EOSINOPHILS ABSOLUTE AUTO 0.91 K/mm3 (0.00-0.68); EOSINOPHILS PERCENT AUTO 12 % (0-6); Hematocrit 37.3 % (33.0-51.0); Hemoglobin 11.7 g/dL (11.5-16.0); IMMATURE GRAN ABSOLUTE AUTO 0.02 K/mm3 (0.00-0.10); IMMATURE GRAN PERCENT AUTO 0 % (0-1); LYMPHOCYTES PERCENT AUTO 30 % (21-46); MONOCYTES PERCENT AUTO 10 % (4-13); Mean Corpuscular HGB 28.1 pg (26.0-34.0); Mean Corpuscular HGB Conc 31.4 g/dL (31.5-36.5); Mean Corpuscular Volume 90 fL (80-100); Mean Platelet Volume 11.4 fL (9.1-12.4); NEUTROPHILS ABSOLUTE AUTO 3.62 K/mm3 (1.96-9.15); NEUTROPHILS PERCENT AUTO 47 % (41-73); Platelet Count 207 K/mm3 (150-400); RDW Coefficient Variation 16.3 % (11.7-14.2); Red Blood Cell Count 4.16 M/mm3 (3.80-5.20); White Blood Cell Count 7.74 K/mm3 (4.00-11.30)
[2019-11-20 14:10] LABS: Albumin, Blood 3.2 g/dL (3.4-5.0); Albumin/Globulin Ratio 0.8 (0.8-1.8); Bilirubin, Total 1.1 mg/dL (0.1-1.0); Bun/Creatinine Ratio 39.1 (12.0-20.0); Calcium, Blood 9.2 mg/dL (8.5-10.1); Creatinine, Blood 1.1 mg/dL (0.40-1.00); Potassium, Blood 3.9 mmol/L (3.5-5.5); Total Protein, Blood 7.2 g/dL (6.4-8.2)
== END | disposition home or self-care (01) ==
LOC: LAB UVN 07:36 → EDSTATUS 15:03
PROVIDERS: Hospitalist
DX: C90.00 Multiple myeloma not having achieved remission (principal); J44.9 Chronic obstructive pulmonary disease, unspecified; N39.0 Urinary tract infection, site not specified
CPT/HCPCS: 80053; 85025

== ENCOUNTER → 2019-11-23 | Outpatient (CLI) | payer MEDICARE, OTHER ==
[2019-11-23 03:29] LABS: International Normalized Ratio 2.79; Prothrombin Time Results 28.2 Sec (9.7-11.5)
== END | disposition home or self-care (01) ==
LOC: LAB UVN 03:10 → EDSTATUS 15:04
PROVIDERS: Family Medicine
DX: I48.20 Chronic atrial fibrillation, unspecified (principal)
CPT/HCPCS: 85610

== ENCOUNTER → 2019-11-30 | Outpatient (CLI) | payer MEDICARE, OTHER ==
[2019-11-30 12:38] LABS: International Normalized Ratio 4.07; Prothrombin Time Results 40.2 Sec (9.7-11.5)
== END | disposition home or self-care (01) ==
LOC: EDSTATUS 09:33 → LAB UVN 10:31
PROVIDERS: Hospitalist
DX: I48.20 Chronic atrial fibrillation, unspecified (principal)
CPT/HCPCS: 85610

== ENCOUNTER → 2019-12-06 | Outpatient (CLI) | payer MEDICARE, OTHER ==
[2019-12-06 05:40] LABS: BASOPHILS ABSOLUTE AUTO 0.06 K/mm3 (0.00-0.23); BASOPHILS PERCENT AUTO 1 % (0-2); EOSINOPHILS ABSOLUTE AUTO 0.94 K/mm3 (0.00-0.68); EOSINOPHILS PERCENT AUTO 14 % (0-6); Hemoglobin 11.5 g/dL (11.5-16.0); IMMATURE GRAN ABSOLUTE AUTO 0.02 K/mm3 (0.00-0.10); IMMATURE GRAN PERCENT AUTO 0 % (0-1); LYMPHOCYTES ABSOLUTE AUTO 1.93 K/mm3 (0.84-5.20); LYMPHOCYTES PERCENT AUTO 28 % (21-46); MONOCYTES ABSOLUTE AUTO 0.57 K/mm3 (0.16-1.47); MONOCYTES PERCENT AUTO 8 % (4-13); Mean Corpuscular HGB 28.5 pg (26.0-34.0); Mean Corpuscular HGB Conc 31.9 g/dL (31.5-36.5); Mean Corpuscular Volume 89 fL (80-100); Mean Platelet Volume 11.8 fL (9.1-12.4); NEUTROPHILS ABSOLUTE AUTO 3.31 K/mm3 (1.96-9.15); NEUTROPHILS PERCENT AUTO 48 % (41-73); Platelet Count 188 K/mm3 (150-400); RDW Standard Deviation 52.5 fL (35.1-46.3); Red Blood Cell Count 4.03 M/mm3 (3.80-5.20); White Blood Cell Count 6.83 K/mm3 (4.00-11.30)
[2019-12-06 05:56] LABS: Albumin, Blood 3.1 g/dL (3.4-5.0); Albumin/Globulin Ratio 0.8 (0.8-1.8); Bun/Creatinine Ratio 39.3 (12.0-20.0); Creatinine, Blood 1.22 mg/dL (0.40-1.00); Globulin, Blood 4.1 g/dL (2.2-4.0); Total Protein, Blood 7.2 g/dL (6.4-8.2)
== END | disposition home or self-care (01) ==
LOC: LAB UVN 05:34 → EDSTATUS 09:50
PROVIDERS: Hospitalist
DX: R73.03 Prediabetes (principal); I10 Essential (primary) hypertension
CPT/HCPCS: 80053; 83036; 85025

== ENCOUNTER → 2019-12-08 | Outpatient (CLI) | payer MEDICARE, OTHER ==
[2019-12-08 12:27] LABS: Hematocrit 35.3 % (33.0-51.0); Hemoglobin 11.3 g/dL (11.5-16.0)
[2019-12-08 12:52] LABS: Prothrombin Time Results 60.1 Sec (9.7-11.5)
[2019-12-08 12:56] LABS: International Normalized Ratio 6.23
[2019-12-08 13:19] LABS: Albumin, Blood 3.1 g/dL (3.4-5.0); Anion Gap 7 mmol/L (6-16); Blood Urea Nitrogen 47 mg/dL (8-24); Bun/Creatinine Ratio 39.8 (12.0-20.0); CO2, Blood 27 mmol/L (21-32); Calcium, Blood 9.5 mg/dL (8.5-10.1); Chloride, Blood 103 mmol/L (98-108); Creatinine, Blood 1.18 mg/dL (0.40-1.00); Glomerular Filtration Rate 48 (60-); Glucose, Blood 103 mg/dL (70-99); Phosphorus, Blood 4.3 mg/dL (2.5-4.9); Potassium, Blood 4.2 mmol/L (3.5-5.5); Sodium, Blood 137 mmol/L (136-145)
== END | disposition home or self-care (01) ==
LOC: LAB UVN 10:46 → EDSTATUS 13:43
PROVIDERS: Hospitalist
DX: I48.20 Chronic atrial fibrillation, unspecified (principal)
CPT/HCPCS: 80069; 85014; 85018; 85610

== ENCOUNTER → 2019-12-12 | Outpatient (CLI) | payer MEDICARE, OTHER ==
[2019-12-12 06:29] LABS: International Normalized Ratio 2.27; Prothrombin Time Results 23.2 Sec (9.7-11.5)
== END | disposition home or self-care (01) ==
LOC: LAB UVN 06:10 → EDSTATUS 11:51
PROVIDERS: Hospitalist
DX: I48.20 Chronic atrial fibrillation, unspecified (principal); D69.59 Other secondary thrombocytopenia
CPT/HCPCS: 85610; 85730

== ENCOUNTER → 2019-12-19 | Outpatient (CLI) | payer MEDICARE, OTHER ==
[2019-12-19 22:41] LABS: International Normalized Ratio 2.22; Prothrombin Time Results 22.7 Sec (9.7-11.5)
== END | disposition home or self-care (01) ==
LOC: EDSTATUS 12:35 → LAB UVN 18:40
PROVIDERS: Hospitalist
DX: I34.2 Nonrheumatic mitral (valve) stenosis (principal); I48.20 Chronic atrial fibrillation, unspecified; D69.59 Other secondary thrombocytopenia
CPT/HCPCS: 85610

== ENCOUNTER → 2019-12-23 | Outpatient (CLI) | payer MEDICARE, OTHER ==
[2019-12-23 21:58] LABS: Hematocrit 35.2 % (33.0-51.0)
[2019-12-23 22:07] LABS: Albumin, Blood 3.2 g/dL (3.4-5.0); Anion Gap 7 mmol/L (6-16); Blood Urea Nitrogen 53 mg/dL (8-24); Bun/Creatinine Ratio 41.1 (12.0-20.0); CO2, Blood 26 mmol/L (21-32); Calcium, Blood 8.9 mg/dL (8.5-10.1); Chloride, Blood 105 mmol/L (98-108); Creatinine, Blood 1.29 mg/dL (0.40-1.00); Glomerular Filtration Rate 43 (60-); Glucose, Blood 126 mg/dL (70-99); Phosphorus, Blood 4.7 mg/dL (2.5-4.9); Potassium, Blood 4.4 mmol/L (3.5-5.5); Sodium, Blood 138 mmol/L (136-145)
== END | disposition home or self-care (01) ==
LOC: EDSTATUS 12:54 → LAB UVN 21:50
PROVIDERS: Hospitalist
DX: N18.30 Chronic kidney disease, stage 3 unspecified (principal); D63.1 Anemia in chronic kidney disease
CPT/HCPCS: 80069; 85014; 85018

== ENCOUNTER → 2019-12-26 | Outpatient (CLI) | payer MEDICARE, OTHER ==
[2019-12-26 22:32] LABS: International Normalized Ratio 2.32; Prothrombin Time Results 23.7 Sec (9.7-11.5)
== END | disposition home or self-care (01) ==
LOC: EDSTATUS 12:55 → LAB UVN 21:07
PROVIDERS: Hospitalist
DX: I48.20 Chronic atrial fibrillation, unspecified (principal)
CPT/HCPCS: 85610

== ENCOUNTER → 2019-12-27 | Outpatient (CLI) | payer MEDICARE, OTHER ==
[2019-12-27 03:44] LABS: Source, Urine Clean Catch
[2019-12-27 03:49] LABS: Bilirubin, Urine Neg (Neg); Blood, Urine 1+ (Neg); Glucose Qualitative, Urine Neg (Neg); Ketones, Urine Neg (Neg); Leukocyte Esterase, Urine 3+ (Neg); Nitrite, Urine Neg (Neg); Protein, Urine Neg (Neg); Specific Gravity, Urine 1.015 (1.003-1.022); Urobilinogen, Urine NORM (Normal)
[2019-12-27 03:54] LABS: Appearance, Urine Clear (Clear); Color, Urine Yellow (P-Yellow)
[2019-12-27 04:01] LABS: Bacteria Mod /hpf; Red Blood Cells, Urine 0-2 /hpf (0-2); Squamous Epithelial Cells Few /hpf (Few)
== END | disposition home or self-care (01) ==
LOC: LAB UVN 03:43 → EDSTATUS 12:56
PROVIDERS: Hospitalist
DX: N39.0 Urinary tract infection, site not specified (principal)
CPT/HCPCS: 81001; 87086

== ENCOUNTER → 2019-12-29 | Outpatient (CLI) | payer MEDICARE, OTHER ==
[2019-12-29 15:34] LABS: Source, Urine Catheter
[2019-12-29 18:07] LABS: Appearance, Urine Clear (Clear); Bilirubin, Urine Neg (Neg); Blood, Urine 1+ (Neg); Color, Urine Amber (P-Yellow); Glucose Qualitative, Urine Neg (Neg); Ketones, Urine Neg (Neg); Leukocyte Esterase, Urine 3+ (Neg); Nitrite, Urine Neg (Neg); Protein, Urine Neg (Neg); Specific Gravity, Urine 1.015 (1.003-1.022); Urobilinogen, Urine NORM (Normal)
[2019-12-29 18:26] LABS: Squamous Epithelial Cells Not Seen /hpf (Few)
[2019-12-29 18:27] LABS: Amorphous Light (0-Heavy); Bacteria Few /hpf; Mucus Light (0-Heavy); Transitional Epithelial Cells Rare /hpf (0-Rare)
== END | disposition home or self-care (01) ==
LOC: EDSTATUS 12:58 → LAB UVN 15:31
PROVIDERS: Hospitalist
DX: N39.0 Urinary tract infection, site not specified (principal)
CPT/HCPCS: 81001; 87086

== ENCOUNTER → 2020-01-02 | Outpatient (CLI) | payer MEDICARE, OTHER ==
[2020-01-02 06:04] LABS: International Normalized Ratio 2.52; Prothrombin Time Results 25.6 Sec (9.7-11.5)
== END | disposition home or self-care (01) ==
LOC: LAB UVN 05:44 → EDSTATUS 12:59
PROVIDERS: Hospitalist
DX: I48.20 Chronic atrial fibrillation, unspecified (principal)
CPT/HCPCS: 85610

== ENCOUNTER → 2020-01-09 | Outpatient (CLI) | payer MEDICARE, OTHER ==
[2020-01-09 03:29] LABS: International Normalized Ratio 2.52; Prothrombin Time Results 25.6 Sec (9.7-11.5)
== END | disposition home or self-care (01) ==
LOC: LAB UVN 03:10 → EDSTATUS 14:58
PROVIDERS: Hospitalist
DX: I50.32 Chronic diastolic (congestive) heart failure (principal)
CPT/HCPCS: 85610

== ENCOUNTER → 2020-01-19 | Outpatient (CLI) | payer MEDICARE, OTHER ==
[2020-01-19 16:08] LABS: International Normalized Ratio 2.47; Prothrombin Time Results 25.1 Sec (9.7-11.5)
== END | disposition home or self-care (01) ==
LOC: LAB UVN 13:29 → EDSTATUS 15:22
PROVIDERS: Hospitalist
DX: I48.20 Chronic atrial fibrillation, unspecified (principal)
CPT/HCPCS: 85610

== ENCOUNTER → 2020-01-26 | Outpatient (CLI) | payer MEDICARE, OTHER ==
[2020-01-26 09:26] LABS: Prothrombin Time Results 53.7 Sec (9.7-11.5)
[2020-01-26 09:57] LABS: International Normalized Ratio 5.53
== END | disposition home or self-care (01) ==
LOC: LAB UVN 08:11 → EDSTATUS 15:23
PROVIDERS: Hospitalist
DX: I48.20 Chronic atrial fibrillation, unspecified (principal)
CPT/HCPCS: 85610

== ENCOUNTER → 2020-02-02 | Outpatient (CLI) | payer MEDICARE, OTHER ==
[2020-02-02 16:29] LABS: International Normalized Ratio 3.85; Prothrombin Time Results 38.2 Sec (9.7-11.5)
== END | disposition home or self-care (01) ==
LOC: EDSTATUS 15:25 → LAB UVN 15:59
PROVIDERS: Hospitalist
DX: I48.20 Chronic atrial fibrillation, unspecified (principal)
CPT/HCPCS: 85610

== ENCOUNTER → 2020-02-07 | Outpatient (CLI) | payer MEDICARE, OTHER ==
[2020-02-07 06:24] LABS: BASOPHILS ABSOLUTE AUTO 0.06 K/mm3 (0.00-0.23); BASOPHILS PERCENT AUTO 1 % (0-2); EOSINOPHILS ABSOLUTE AUTO 0.66 K/mm3 (0.00-0.68); EOSINOPHILS PERCENT AUTO 10 % (0-6); Hematocrit 38.2 % (33.0-51.0); Hemoglobin 12.3 g/dL (11.5-16.0); IMMATURE GRAN ABSOLUTE AUTO 0.01 K/mm3 (0.00-0.10); IMMATURE GRAN PERCENT AUTO 0 % (0-1); LYMPHOCYTES ABSOLUTE AUTO 1.98 K/mm3 (0.84-5.20); LYMPHOCYTES PERCENT AUTO 31 % (21-46); MONOCYTES ABSOLUTE AUTO 0.66 K/mm3 (0.16-1.47); MONOCYTES PERCENT AUTO 10 % (4-13); Mean Corpuscular HGB 28.8 pg (26.0-34.0); Mean Corpuscular HGB Conc 32.2 g/dL (31.5-36.5); Mean Corpuscular Volume 90 fL (80-100); Mean Platelet Volume 11.6 fL (9.1-12.4); NEUTROPHILS ABSOLUTE AUTO 3.09 K/mm3 (1.96-9.15); NEUTROPHILS PERCENT AUTO 48 % (41-73); Platelet Count 153 K/mm3 (150-400); RDW Coefficient Variation 14.9 % (11.7-14.2); RDW Standard Deviation 48.8 fL (35.1-46.3); Red Blood Cell Count 4.27 M/mm3 (3.80-5.20); White Blood Cell Count 6.46 K/mm3 (4.00-11.30)
[2020-02-07 06:32] LABS: Albumin/Globulin Ratio 0.8 (0.8-1.8); Bilirubin, Direct 0.2 mg/dL (0.0-0.3); Bilirubin, Indirect 0.5 mg/dL (0.1-0.7); Bilirubin, Total 0.7 mg/dL (0.1-1.0); Bun/Creatinine Ratio 43.8 (12.0-20.0); Calcium, Blood 8.7 mg/dL (8.5-10.1); Creatinine, Blood 1.28 mg/dL (0.40-1.00); Phosphorus, Blood 3.6 mg/dL (2.5-4.9)
== END | disposition home or self-care (01) ==
LOC: LAB UVN 06:08 → EDSTATUS 15:27
PROVIDERS: Hospitalist
DX: N18.30 Chronic kidney disease, stage 3 unspecified (principal); D63.1 Anemia in chronic kidney disease; N25.81 Secondary hyperparathyroidism of renal origin; E55.9 Vitamin D deficiency, unspecified; E29.1 Testicular hypofunction; R76.9 Abnormal immunological finding in serum, unspecified; R73.09 Other abnormal glucose
CPT/HCPCS: 80053; 82248; 83036; 84100; 85025

== ENCOUNTER → 2020-02-12 | Outpatient (CLI) | payer MEDICARE, OTHER ==
[2020-02-12 06:01] LABS: International Normalized Ratio 1.7; Prothrombin Time Results 17.7 Sec (9.7-11.5)
== END | disposition home or self-care (01) ==
LOC: LAB UVN 05:37 → EDSTATUS 12:41
PROVIDERS: Hospitalist
DX: I48.20 Chronic atrial fibrillation, unspecified (principal)
CPT/HCPCS: 85610

== ENCOUNTER → 2020-02-13 | Outpatient (CLI) | payer MEDICARE, OTHER ==
[2020-02-13 04:34] LABS: Hematocrit 39.5 % (33.0-51.0); Hemoglobin 12.8 g/dL (11.5-16.0); Mean Corpuscular HGB 28.9 pg (26.0-34.0); Mean Corpuscular HGB Conc 32.4 g/dL (31.5-36.5); Mean Corpuscular Volume 89 fL (80-100); Mean Platelet Volume 11.3 fL (9.1-12.4); Platelet Count 180 K/mm3 (150-400); RDW Coefficient Variation 14.9 % (11.7-14.2); Red Blood Cell Count 4.43 M/mm3 (3.80-5.20); White Blood Cell Count 7.29 K/mm3 (4.00-11.30)
[2020-02-13 04:59] LABS: Thyroid Stimulating Hormone 1.88 uIU/mL (0.360-4.800)
[2020-02-13 05:00] LABS: Albumin, Blood 3.2 g/dL (3.4-5.0); Albumin/Globulin Ratio 0.8 (0.8-1.8); Bilirubin, Total 0.9 mg/dL (0.1-1.0); Bun/Creatinine Ratio 43.5 (12.0-20.0); Calcium, Blood 9.1 mg/dL (8.5-10.1); Creatinine, Blood 1.08 mg/dL (0.40-1.00); Globulin, Blood 4.2 g/dL (2.2-4.0); Potassium, Blood 4.3 mmol/L (3.5-5.5); Total Protein, Blood 7.4 g/dL (6.4-8.2)
== END | disposition home or self-care (01) ==
LOC: LAB UVN 03:40 → EDSTATUS 12:43
PROVIDERS: Hospitalist
DX: E11.9 Type 2 diabetes mellitus without complications (principal); I10 Essential (primary) hypertension
CPT/HCPCS: 80053; 83036; 84443; 85027

== ENCOUNTER → 2020-02-17 | Outpatient (CLI) | payer MEDICARE, OTHER ==
[2020-02-17 23:17] LABS: Anion Gap 7 mmol/L (6-16); Blood Urea Nitrogen 56 mg/dL (8-24); Bun/Creatinine Ratio 54.4 (12.0-20.0); CHOL/HDL RATIO 2.6; CO2, Blood 28 mmol/L (21-32); Chloride, Blood 104 mmol/L (98-108); Cholesterol 110 mg/dL (50-200); Creatinine, Blood 1.03 mg/dL (0.40-1.00); Glomerular Filtration Rate 56 (60-); Glucose, Blood 122 mg/dL (70-99); HDL Cholesterol 43 mg/dL (>39); LDL/HDL RATIO 1.2; Low Density Lipoprotein Chol 53 mg/dL (0-110); Phosphorus, Blood 4.1 mg/dL (2.5-4.9); Potassium, Blood 4.4 mmol/L (3.5-5.5); Sodium, Blood 139 mmol/L (136-145); Triglycerides 72 mg/dL (30-160); Very Low Density Lipoprot Chol 14 mg/dL (6-32)
== END | disposition home or self-care (01) ==
LOC: EDSTATUS 12:44 → LAB UVN 22:32
PROVIDERS: Family Medicine
DX: N18.30 Chronic kidney disease, stage 3 unspecified (principal); D63.1 Anemia in chronic kidney disease; N25.81 Secondary hyperparathyroidism of renal origin; E55.9 Vitamin D deficiency, unspecified; E78.00 Pure hypercholesterolemia, unspecified; R76.9 Abnormal immunological finding in serum, unspecified; G60.9 Hereditary and idiopathic neuropathy, unspecified
CPT/HCPCS: 80061; 80069; 82306; 83970; 84443

== ENCOUNTER → 2020-02-20 | Outpatient (CLI) | payer MEDICARE, OTHER ==
[2020-02-20 05:33] LABS: International Normalized Ratio 1.61; Prothrombin Time Results 16.8 Sec (9.7-11.5)
== END | disposition home or self-care (01) ==
LOC: LAB UVN 04:15 → EDSTATUS 12:47
PROVIDERS: Hospitalist
DX: I48.20 Chronic atrial fibrillation, unspecified (principal); I50.32 Chronic diastolic (congestive) heart failure
CPT/HCPCS: 85610

== ENCOUNTER → 2020-02-26 | Outpatient (CLI) | payer MEDICARE, OTHER ==
[2020-02-27 06:04] LABS: International Normalized Ratio 1.28; Prothrombin Time Results 13.5 Sec (9.7-11.5)
== END | disposition home or self-care (01) ==
LOC: EDSTATUS 12:49 → LAB UVN 21:10
PROVIDERS: Hospitalist
DX: I48.20 Chronic atrial fibrillation, unspecified (principal); I50.32 Chronic diastolic (congestive) heart failure
CPT/HCPCS: 85610

== ENCOUNTER → 2020-02-27 | Outpatient (CLI) | payer MEDICARE, OTHER | END | disposition home or self-care (01) | LOC: LAB UVN 05:40 → EDSTATUS 12:50 | DX: C90.00 Multiple myeloma not having achieved remission (principal); I48.20 Chronic atrial fibrillation, unspecified | CPT/HCPCS: 85610; 85730 ==

== ENCOUNTER → 2020-02-29 | Outpatient (CLI) | payer MEDICARE, OTHER ==
[2020-02-29 13:10] LABS: CHOL/HDL RATIO 2.3; Cholesterol 100 mg/dL (50-200); HDL Cholesterol 44 mg/dL (>39); Low Density Lipoprotein Chol 45 mg/dL (0-110); Triglycerides 55 mg/dL (30-160); Very Low Density Lipoprot Chol 11 mg/dL (6-32)
== END | disposition home or self-care (01) ==
LOC: LAB UVN 08:30 → EDSTATUS 11:34
PROVIDERS: Hospitalist
DX: E78.49 Other hyperlipidemia (principal)
CPT/HCPCS: 80061

== ENCOUNTER → 2020-03-08 | Outpatient (CLI) | payer MEDICARE, OTHER ==
[2020-03-08 18:16] LABS: International Normalized Ratio 1.28; Prothrombin Time Results 13.5 Sec (9.7-11.5)
== END | disposition home or self-care (01) ==
LOC: EDSTATUS 11:35 → LAB UVN 17:53
PROVIDERS: Hospitalist
DX: I48.20 Chronic atrial fibrillation, unspecified (principal)
CPT/HCPCS: 85610

== ENCOUNTER → 2020-03-15 | Outpatient (CLI) | payer MEDICARE, OTHER ==
[2020-03-15 13:23] LABS: International Normalized Ratio 1.46; Prothrombin Time Results 15.3 Sec (9.7-11.5)
== END | disposition home or self-care (01) ==
LOC: LAB UVN 11:00 → EDSTATUS 12:53
PROVIDERS: Hospitalist
DX: I48.20 Chronic atrial fibrillation, unspecified (principal)
CPT/HCPCS: 85610

== ENCOUNTER → 2020-03-21 | Outpatient (CLI) | payer MEDICARE, OTHER ==
[2020-03-21 06:44] LABS: International Normalized Ratio 1.84
== END | disposition home or self-care (01) ==
LOC: LAB UVN 06:19 → EDSTATUS 12:54
PROVIDERS: Hospitalist
DX: I48.20 Chronic atrial fibrillation, unspecified (principal)
CPT/HCPCS: 85610

== ENCOUNTER → 2020-03-28 | Outpatient (CLI) | payer MEDICARE, OTHER ==
[2020-03-28 15:30] LABS: International Normalized Ratio 1.8; Prothrombin Time Results 18.6 Sec (9.7-11.5)
== END | disposition home or self-care (01) ==
LOC: LAB UVN 06:04 → EDSTATUS 12:55
PROVIDERS: Hospitalist
DX: I50.32 Chronic diastolic (congestive) heart failure (principal); I48.20 Chronic atrial fibrillation, unspecified
CPT/HCPCS: 85610

== ENCOUNTER → 2020-04-05 | Outpatient (CLI) | payer MEDICARE, OTHER ==
[2020-04-05 15:40] LABS: International Normalized Ratio 1.76; Prothrombin Time Results 18.2 Sec (9.7-11.5)
== END ==
LOC: LAB RH 11:35 → LAB UVN 11:35 → LAB 11:35 → EDSTATUS 13:38
PROVIDERS: Hospitalist
DX: I48.20 Chronic atrial fibrillation, unspecified (principal); Z88.8 Allergy status to other drugs, medicaments and biological substances
CPT/HCPCS: 85610

== ENCOUNTER → 2020-04-15 | Outpatient (CLI) | payer MEDICARE, OTHER ==
[2020-04-15 06:21] LABS: International Normalized Ratio 3.73
== END | disposition home or self-care (01) ==
LOC: LAB UVN 05:51 → EDSTATUS 13:02
PROVIDERS: Hospitalist
DX: I50.32 Chronic diastolic (congestive) heart failure (principal); I48.20 Chronic atrial fibrillation, unspecified
CPT/HCPCS: 85610

== ENCOUNTER → 2020-04-23 | Outpatient (CLI) | payer MEDICARE, OTHER ==
[2020-04-23 06:10] LABS: BASOPHILS ABSOLUTE AUTO 0.05 K/mm3 (0.00-0.23); BASOPHILS PERCENT AUTO 1 % (0-2); EOSINOPHILS ABSOLUTE AUTO 0.41 K/mm3 (0.00-0.68); EOSINOPHILS PERCENT AUTO 6 % (0-6); Hematocrit 39.3 % (33.0-51.0); Hemoglobin 12.9 g/dL (11.5-16.0); IMMATURE GRAN ABSOLUTE AUTO 0.01 K/mm3 (0.00-0.10); IMMATURE GRAN PERCENT AUTO 0 % (0-1); LYMPHOCYTES ABSOLUTE AUTO 1.82 K/mm3 (0.84-5.20); LYMPHOCYTES PERCENT AUTO 28 % (21-46); MONOCYTES ABSOLUTE AUTO 0.61 K/mm3 (0.16-1.47); MONOCYTES PERCENT AUTO 10 % (4-13); Mean Corpuscular HGB 29.1 pg (26.0-34.0); Mean Corpuscular HGB Conc 32.8 g/dL (31.5-36.5); Mean Corpuscular Volume 89 fL (80-100); Mean Platelet Volume 11.4 fL (9.1-12.4); NEUTROPHILS PERCENT AUTO 55 % (41-73); Platelet Count 149 K/mm3 (150-400); RDW Coefficient Variation 14.7 % (11.7-14.2); RDW Standard Deviation 47.8 fL (35.1-46.3); Red Blood Cell Count 4.44 M/mm3 (3.80-5.20)
[2020-04-23 06:24] LABS: International Normalized Ratio 2.3; Prothrombin Time Results 23.5 Sec (9.7-11.5)
[2020-04-23 06:30] LABS: Anion Gap 6 mmol/L (6-16); Blood Urea Nitrogen 48 mg/dL (8-24); Bun/Creatinine Ratio 44.9 (12.0-20.0); CO2, Blood 29 mmol/L (21-32); Calcium, Blood 8.8 mg/dL (8.5-10.1); Chloride, Blood 103 mmol/L (98-108); Creatinine, Blood 1.07 mg/dL (0.40-1.00); Ferritin, Serum 91 ng/mL (8-252); Glomerular Filtration Rate 53 (60-); Glucose, Blood 81 mg/dL (70-99); Iron Serum 52 ug/dL (50-170); Percent Saturation 17.1 % (15.0-50.0); Phosphorus, Blood 3.9 mg/dL (2.5-4.9); Potassium, Blood 3.6 mmol/L (3.5-5.5); Sodium, Blood 138 mmol/L (136-145); Total Iron Binding Capacity 304 ug/dL (250-450)
== END | disposition home or self-care (01) ==
LOC: LAB UVN 05:58 → EDSTATUS 13:03
PROVIDERS: Hospitalist
DX: I48.20 Chronic atrial fibrillation, unspecified (principal); N18.2 Chronic kidney disease, stage 2 (mild); D63.1 Anemia in chronic kidney disease; R94.5 Abnormal results of liver function studies
CPT/HCPCS: 80069; 82728; 83540; 83550; 85025; 85610

== ENCOUNTER → 2020-05-02 | Outpatient (CLI) | payer MEDICARE, OTHER ==
[2020-05-02 06:05] LABS: International Normalized Ratio 2.15
== END | disposition home or self-care (01) ==
LOC: LAB UVN 05:44 → EDSTATUS 13:07
PROVIDERS: Hospitalist
DX: I48.20 Chronic atrial fibrillation, unspecified (principal)
CPT/HCPCS: 85610

== ENCOUNTER → 2020-05-12 | Outpatient (CLI) | payer MEDICARE, OTHER ==
[2020-05-12 09:50] LABS: International Normalized Ratio 3.24; Prothrombin Time Results 32.4 Sec (9.7-11.5)
== END | disposition home or self-care (01) ==
LOC: EDSTATUS 08:14 → LAB UVN 09:21
PROVIDERS: Hospitalist
DX: I48.20 Chronic atrial fibrillation, unspecified (principal)
CPT/HCPCS: 85610

== ENCOUNTER → 2020-05-20 | Outpatient (CLI) | payer MEDICARE, OTHER ==
[2020-05-20 06:04] LABS: International Normalized Ratio 2.63; Prothrombin Time Results 26.6 Sec (9.7-11.5)
== END | disposition home or self-care (01) ==
LOC: LAB UVN 04:30 → EDSTATUS 08:15
PROVIDERS: Hospitalist
DX: I50.32 Chronic diastolic (congestive) heart failure (principal); I48.20 Chronic atrial fibrillation, unspecified
CPT/HCPCS: 85610

== ENCOUNTER → 2020-06-10 | Outpatient (CLI) | payer MEDICARE, OTHER ==
[2020-06-10 06:04] LABS: International Normalized Ratio 3.04; Prothrombin Time Results 30.8 Sec (9.7-11.5)
== END | disposition home or self-care (01) ==
LOC: LAB UVN 05:36 → EDSTATUS 14:00
PROVIDERS: Family Medicine
DX: I48.20 Chronic atrial fibrillation, unspecified (principal); I50.32 Chronic diastolic (congestive) heart failure
CPT/HCPCS: 85610

== ENCOUNTER → 2020-06-14 | Outpatient (CLI) | payer MEDICARE, OTHER ==
[2020-06-15 06:35] LABS: Source, Urine Catheter
[2020-06-15 06:51] LABS: Appearance, Urine Clear (Clear); Bilirubin, Urine Neg (Neg); Blood, Urine 1+ (Neg); Color, Urine Yellow (P-Yellow); Glucose Qualitative, Urine Neg (Neg); Ketones, Urine Neg (Neg); Leukocyte Esterase, Urine 3+ (Neg); Nitrite, Urine Neg (Neg); Protein, Urine Neg (Neg); Specific Gravity, Urine 1.015 (1.003-1.022); Urobilinogen, Urine NORM (Normal)
[2020-06-15 07:06] LABS: Bacteria Few /hpf; Red Blood Cells, Urine 0-2 /hpf (0-2); Squamous Epithelial Cells Rare /hpf (Few)
== END | disposition home or self-care (01) ==
LOC: LAB UVN 15:10 → EDSTATUS 06-17 14:01
PROVIDERS: Hospitalist
DX: N39.0 Urinary tract infection, site not specified (principal)
CPT/HCPCS: 81001; 87077; 87086; 87186

== ENCOUNTER → 2020-06-15 | Outpatient (CLI) | payer MEDICARE, OTHER ==
[2020-06-16 00:30] LABS: Prothrombin Time Results 43.8 Sec (9.7-11.5)
[2020-06-16 00:33] LABS: International Normalized Ratio 4.41
== END | disposition home or self-care (01) ==
LOC: EDSTATUS 14:02 → LAB UVN 23:52
PROVIDERS: Hospitalist
DX: I48.20 Chronic atrial fibrillation, unspecified (principal); I50.32 Chronic diastolic (congestive) heart failure
CPT/HCPCS: 85610

== ENCOUNTER → 2020-06-24 | Outpatient (CLI) | payer MEDICARE, OTHER ==
[2020-06-24 14:01] LABS: International Normalized Ratio 3.08; Prothrombin Time Results 31.2 Sec (9.7-11.5)
== END | disposition home or self-care (01) ==
LOC: LAB UVN 13:40 → EDSTATUS 14:03
PROVIDERS: Hospitalist
DX: I48.20 Chronic atrial fibrillation, unspecified (principal)
CPT/HCPCS: 85610

== ENCOUNTER → 2020-07-08 | Outpatient (CLI) | payer MEDICARE, OTHER ==
[2020-07-09 06:20] LABS: Hematocrit 39.6 % (33.0-51.0)
[2020-07-09 06:30] LABS: Albumin, Blood 3.1 g/dL (3.4-5.0); Anion Gap 5 mmol/L (6-16); Blood Urea Nitrogen 46 mg/dL (8-24); Bun/Creatinine Ratio 31.9 (12.0-20.0); CO2, Blood 29 mmol/L (21-32); Calcium, Blood 8.5 mg/dL (8.5-10.1); Chloride, Blood 104 mmol/L (98-108); Creatinine, Blood 1.44 mg/dL (0.40-1.00); Glomerular Filtration Rate 38 (60-); Glucose, Blood 109 mg/dL (70-99); Phosphorus, Blood 3.5 mg/dL (2.5-4.9); Potassium, Blood 3.9 mmol/L (3.5-5.5); Sodium, Blood 138 mmol/L (136-145)
[2020-07-09 06:36] LABS: International Normalized Ratio 2.21
[2020-07-10 07:41] LABS: Hemoglobin 12.7 g/dL (11.5-16.0); Prothrombin Time Results 22.8 Sec (9.7-11.5)
== END | disposition home or self-care (01) ==
LOC: LAB UVN 06:13 → EDSTATUS 07-10 11:14
PROVIDERS: Hospitalist
DX: I48.20 Chronic atrial fibrillation, unspecified (principal); I50.32 Chronic diastolic (congestive) heart failure; N18.32 Chronic kidney disease, stage 3b
CPT/HCPCS: 80069; 85014; 85018; 85610

== ENCOUNTER → 2020-07-16 | Outpatient (CLI) | payer MEDICARE, OTHER ==
[2020-07-16 06:37] LABS: International Normalized Ratio 2.5; Prothrombin Time Results 25.6 Sec (9.7-11.5)
== END | disposition home or self-care (01) ==
LOC: LAB UVN 06:08 → EDSTATUS 11:16
PROVIDERS: Hospitalist
DX: I48.20 Chronic atrial fibrillation, unspecified (principal)
CPT/HCPCS: 85610

== ENCOUNTER → 2020-07-29 | Outpatient (CLI) | payer MEDICARE, OTHER ==
[2020-07-30 00:47] LABS: International Normalized Ratio 2.12; Prothrombin Time Results 21.9 Sec (9.7-11.5)
== END | disposition home or self-care (01) ==
LOC: LAB UVN 00:27 → EDSTATUS 07-31 11:20
PROVIDERS: Hospitalist
DX: I48.20 Chronic atrial fibrillation, unspecified (principal)
CPT/HCPCS: 85610

== ENCOUNTER → 2020-08-14 | Outpatient (CLI) | payer MEDICARE, OTHER ==
[2020-08-14 01:22] LABS: International Normalized Ratio 1.73; Prothrombin Time Results 18.1 Sec (9.7-11.5)
== END ==
LOC: LAB UVN 01:02 → EDSTATUS 10:59
PROVIDERS: Hospitalist
DX: I48.20 Chronic atrial fibrillation, unspecified (principal)
CPT/HCPCS: 85610

== ENCOUNTER → 2020-08-20 | Outpatient (CLI) | payer MEDICARE, OTHER ==
[2020-08-20 06:26] LABS: BASOPHILS ABSOLUTE AUTO 0.07 K/mm3 (0.00-0.23); BASOPHILS PERCENT AUTO 1 % (0-2); EOSINOPHILS ABSOLUTE AUTO 0.52 K/mm3 (0.00-0.68); EOSINOPHILS PERCENT AUTO 10 % (0-6); Hematocrit 39.8 % (33.0-51.0); Hemoglobin 12.9 g/dL (11.5-16.0); IMMATURE GRAN ABSOLUTE AUTO 0.01 K/mm3 (0.00-0.10); IMMATURE GRAN PERCENT AUTO 0 % (0-1); LYMPHOCYTES ABSOLUTE AUTO 1.75 K/mm3 (0.84-5.20); LYMPHOCYTES PERCENT AUTO 32 % (21-46); MONOCYTES ABSOLUTE AUTO 0.63 K/mm3 (0.16-1.47); MONOCYTES PERCENT AUTO 12 % (4-13); Mean Corpuscular HGB 28.9 pg (26.0-34.0); Mean Corpuscular HGB Conc 32.4 g/dL (31.5-36.5); Mean Corpuscular Volume 89 fL (80-100); Mean Platelet Volume 11.8 fL (9.1-12.4); NEUTROPHILS ABSOLUTE AUTO 2.47 K/mm3 (1.96-9.15); NEUTROPHILS PERCENT AUTO 45 % (41-73); Platelet Count 130 K/mm3 (150-400); RDW Standard Deviation 52.2 fL (35.1-46.3); Red Blood Cell Count 4.47 M/mm3 (3.80-5.20); White Blood Cell Count 5.45 K/mm3 (4.00-11.30)
[2020-08-20 06:46] LABS: Albumin, Blood 3.1 g/dL (3.4-5.0); Albumin/Globulin Ratio 0.8 (0.8-1.8); Bun/Creatinine Ratio 36.8 (12.0-20.0); C-REACTIVE PROTEIN, EXT RANGE 0.884 mg/dL (0.000-0.300); Calcium, Blood 8.8 mg/dL (8.5-10.1); Creatinine, Blood 1.25 mg/dL (0.40-1.00); Globulin, Blood 3.9 g/dL (2.2-4.0); Potassium, Blood 4.1 mmol/L (3.5-5.5)
[2020-08-20 23:47] LABS: Thyroid Stimulating Hormone 2.55 uIU/mL (0.360-4.800)
== END ==
LOC: LAB UVN 06:12 → EDSTATUS 11:01
PROVIDERS: Family Medicine
DX: C90.00 Multiple myeloma not having achieved remission (principal); Z88.8 Allergy status to other drugs, medicaments and biological substances; Z88.5 Allergy status to narcotic agent; Z88.2 Allergy status to sulfonamides
CPT/HCPCS: 80053; 83036; 83605; 83615; 83718; 84443; 85025; 85651; 86140

== ENCOUNTER → 2020-08-28 | Outpatient (CLI) | payer MEDICARE, OTHER ==
[2020-08-28 05:33] LABS: Albumin, Blood 3.2 g/dL (3.4-5.0); Anion Gap 5 mmol/L (6-16); Blood Urea Nitrogen 41 mg/dL (8-24); Bun/Creatinine Ratio 35.7 (12.0-20.0); CO2, Blood 27 mmol/L (21-32); Calcium, Blood 8.6 mg/dL (8.5-10.1); Chloride, Blood 106 mmol/L (98-108); Creatinine, Blood 1.15 mg/dL (0.40-1.00); Glomerular Filtration Rate 46 (60-); Glucose, Blood 104 mg/dL (70-99); Phosphorus, Blood 3.7 mg/dL (2.5-4.9); Potassium, Blood 4.3 mmol/L (3.5-5.5); Sodium, Blood 138 mmol/L (136-145)
[2020-08-28 05:39] LABS: International Normalized Ratio 2.24; Prothrombin Time Results 23.1 Sec (9.7-11.5)
== END ==
LOC: LAB UVN 05:17 → EDSTATUS 11:03
PROVIDERS: Hospitalist
DX: I48.20 Chronic atrial fibrillation, unspecified (principal); I13.0 Hypertensive heart and chronic kidney disease with heart failure and stage 1 through stage 4 chronic kidney disease, or unspecified chronic kidney disease; I50.23 Acute on chronic systolic (congestive) heart failure; N18.30 Chronic kidney disease, stage 3 unspecified; Z88.4 Allergy status to anesthetic agent; Z88.8 Allergy status to other drugs, medicaments and biological substances
CPT/HCPCS: 80069; 85610

== ENCOUNTER → 2020-08-29 | Outpatient (CLI) | payer MEDICARE, OTHER | LOC: LAB UVN 06:17 → EDSTATUS 11:04 | DX: N18.30 Chronic kidney disease, stage 3 unspecified (principal); D75.1 Secondary polycythemia; Z88.8 Allergy status to other drugs, medicaments and biological substances; Z88.2 Allergy status to sulfonamides | CPT/HCPCS: 85018 ==

== ENCOUNTER → 2020-09-11 | Outpatient (CLI) | payer MEDICARE, OTHER ==
[2020-09-11 11:34] LABS: International Normalized Ratio 1.75; Prothrombin Time Results 18.3 Sec (9.7-11.5)
== END | disposition home or self-care (01) ==
LOC: LAB UVN 10:00 → EDSTATUS 11:06
PROVIDERS: Hospitalist
DX: I48.20 Chronic atrial fibrillation, unspecified (principal)
CPT/HCPCS: 85610

== ENCOUNTER → 2020-09-18 | Outpatient (CLI) | payer MEDICARE, OTHER ==
[2020-09-18 08:18] LABS: International Normalized Ratio 2.18; Prothrombin Time Results 22.5 Sec (9.7-11.5)
== END | disposition home or self-care (01) ==
LOC: LAB UVN 07:57 → EDSTATUS 11:07
PROVIDERS: Hospitalist
DX: I48.20 Chronic atrial fibrillation, unspecified (principal)
CPT/HCPCS: 85610

== ENCOUNTER → 2020-09-25 | Outpatient (CLI) | payer MEDICARE, OTHER ==
[2020-09-25 20:54] LABS: BASOPHILS ABSOLUTE AUTO 0.04 K/mm3 (0.00-0.23); BASOPHILS PERCENT AUTO 1 % (0-2); EOSINOPHILS ABSOLUTE AUTO 0.29 K/mm3 (0.00-0.68); EOSINOPHILS PERCENT AUTO 6 % (0-6); Hematocrit 37.5 % (33.0-51.0); Hemoglobin 12.2 g/dL (11.5-16.0); IMMATURE GRAN PERCENT AUTO 0 % (0-1); LYMPHOCYTES ABSOLUTE AUTO 1.51 K/mm3 (0.84-5.20); LYMPHOCYTES PERCENT AUTO 33 % (21-46); MONOCYTES ABSOLUTE AUTO 0.49 K/mm3 (0.16-1.47); MONOCYTES PERCENT AUTO 11 % (4-13); Mean Corpuscular HGB 29.4 pg (26.0-34.0); Mean Corpuscular HGB Conc 32.5 g/dL (31.5-36.5); Mean Corpuscular Volume 90 fL (80-100); Mean Platelet Volume 11.9 fL (9.1-12.4); NEUTROPHILS PERCENT AUTO 50 % (41-73); Platelet Count 132 K/mm3 (150-400); RDW Coefficient Variation 17.1 % (11.7-14.2); RDW Standard Deviation 57.1 fL (35.1-46.3); Red Blood Cell Count 4.15 M/mm3 (3.80-5.20); White Blood Cell Count 4.63 K/mm3 (4.00-11.30)
[2020-09-25 21:06] LABS: International Normalized Ratio 2.01; Prothrombin Time Results 20.9 Sec (9.7-11.5)
[2020-09-25 21:10] LABS: Albumin/Globulin Ratio 0.8 (0.8-1.8); Bilirubin, Total 1.1 mg/dL (0.1-1.0); Bun/Creatinine Ratio 40.2 (12.0-20.0); Calcium, Blood 8.3 mg/dL (8.5-10.1); Creatinine, Blood 1.17 mg/dL (0.40-1.00); Globulin, Blood 3.8 g/dL (2.2-4.0); Potassium, Blood 4.4 mmol/L (3.5-5.5); Total Protein, Blood 6.8 g/dL (6.4-8.2)
== END | disposition home or self-care (01) ==
LOC: EDSTATUS 11:08 → LAB UVN 20:46
PROVIDERS: Internal Medicine
DX: I48.20 Chronic atrial fibrillation, unspecified (principal); N18.30 Chronic kidney disease, stage 3 unspecified
CPT/HCPCS: 80053; 85025; 85610

== ENCOUNTER → 2020-10-11 | Outpatient (CLI) | payer MEDICARE, OTHER ==
[2020-10-11 10:58] LABS: International Normalized Ratio 2.38; Prothrombin Time Results 24.5 Sec (9.7-11.5)
== END | disposition home or self-care (01) ==
LOC: LAB UVN 10:21 → EDSTATUS 10:29
PROVIDERS: Hospitalist
DX: I48.20 Chronic atrial fibrillation, unspecified (principal)
CPT/HCPCS: 85610

== ENCOUNTER → 2020-10-28 | Outpatient (CLI) | payer MEDICARE, OTHER ==
[2020-10-28 11:08] LABS: International Normalized Ratio 2.47; Prothrombin Time Results 25.3 Sec (9.7-11.5)
== END | disposition home or self-care (01) ==
LOC: LAB UVN 09:45 → EDSTATUS 10:32
PROVIDERS: Hospitalist
DX: I48.20 Chronic atrial fibrillation, unspecified (principal)
CPT/HCPCS: 85610

== ENCOUNTER → 2020-11-04 | Outpatient (CLI) | payer MEDICARE, OTHER ==
[2020-11-04 11:33] LABS: International Normalized Ratio 2.42
== END | disposition home or self-care (01) ==
LOC: LAB UVN 09:50 → EDSTATUS 10:33
PROVIDERS: Hospitalist
DX: C90.00 Multiple myeloma not having achieved remission (principal); I48.20 Chronic atrial fibrillation, unspecified
CPT/HCPCS: 85610

== ENCOUNTER → 2020-11-15 | Outpatient (CLI) | payer MEDICARE, OTHER ==
[~2020-11-15] MED LIST changes: +ACET500 PO; +BUMETANIDE2 M5 PO; +CYCLOBENZAPRINE5 MG PO; +Celexa10 MG PO; +ELIQUIS5 M2 PO; +K-Dur10 MEQ PO; +METO5 PO; +PANTOPRAZOLE SO40 M2 PO; +SULTRIDS PO
[2020-11-15 11:47] LABS: Albumin, Blood 2.8 g/dL (3.4-5.0); Anion Gap 6 mmol/L (6-16); Blood Urea Nitrogen 37 mg/dL (8-24); Bun/Creatinine Ratio 35.6 (12.0-20.0); CO2, Blood 27 mmol/L (21-32); Calcium, Blood 8.8 mg/dL (8.5-10.1); Chloride, Blood 106 mmol/L (98-108); Creatinine, Blood 1.04 mg/dL (0.40-1.00); Glomerular Filtration Rate 52 (60-); Glucose, Blood 96 mg/dL (70-99); Phosphorus, Blood 3.3 mg/dL (2.5-4.9); Potassium, Blood 4.1 mmol/L (3.5-5.5); Sodium, Blood 139 mmol/L (136-145)
== END ==
LOC: LAB UVN 09:20 → EDSTATUS 15:06
PROVIDERS: Hospitalist
DX: N18.30 Chronic kidney disease, stage 3 unspecified (principal); Z88.8 Allergy status to other drugs, medicaments and biological substances
CPT/HCPCS: 80069

== ENCOUNTER → 2020-11-16 | Outpatient (CLI) | payer MEDICARE, OTHER ==
[2020-11-16 06:26] LABS: Anion Gap 4 mmol/L (6-16); Blood Urea Nitrogen 41 mg/dL (8-24); Bun/Creatinine Ratio 37.6 (12.0-20.0); CO2, Blood 30 mmol/L (21-32); Chloride, Blood 107 mmol/L (98-108); Creatinine, Blood 1.09 mg/dL (0.40-1.00); Glomerular Filtration Rate 49 (60-); Glucose, Blood 98 mg/dL (70-99); Phosphorus, Blood 3.5 mg/dL (2.5-4.9); Potassium, Blood 4.6 mmol/L (3.5-5.5); Sodium, Blood 141 mmol/L (136-145)
== END ==
LOC: LAB UVN 06:06 → EDSTATUS 15:07
PROVIDERS: Hospitalist
DX: E11.22 Type 2 diabetes mellitus with diabetic chronic kidney disease (principal); N18.30 Chronic kidney disease, stage 3 unspecified; Z88.6 Allergy status to analgesic agent; Z88.8 Allergy status to other drugs, medicaments and biological substances
CPT/HCPCS: 80069; 85018

== ENCOUNTER → 2020-11-18 | Outpatient (CLI) | payer MEDICARE, OTHER ==
[2020-11-18 10:16] LABS: International Normalized Ratio 2.48; Prothrombin Time Results 24.5 Sec (9.7-11.5)
== END ==
LOC: LAB UVN 07:49 → EDSTATUS 15:09
PROVIDERS: Hospitalist
DX: I48.20 Chronic atrial fibrillation, unspecified (principal); Z88.8 Allergy status to other drugs, medicaments and biological substances
CPT/HCPCS: 85610

== ENCOUNTER → 2020-11-26 | Outpatient (CLI) | payer MEDICARE, OTHER ==
[2020-11-26 15:13] LABS: BASOPHILS ABSOLUTE AUTO 0.04 K/mm3 (0.00-0.23); BASOPHILS PERCENT AUTO 1 % (0-2); EOSINOPHILS PERCENT AUTO 9 % (0-6); Hematocrit 39.9 % (33.0-51.0); Hemoglobin 12.9 g/dL (11.5-16.0); IMMATURE GRAN PERCENT AUTO 0 % (0-1); LYMPHOCYTES ABSOLUTE AUTO 1.36 K/mm3 (0.84-5.20); LYMPHOCYTES PERCENT AUTO 29 % (21-46); MONOCYTES PERCENT AUTO 11 % (4-13); Mean Corpuscular HGB 29.7 pg (26.0-34.0); Mean Corpuscular HGB Conc 32.3 g/dL (31.5-36.5); Mean Corpuscular Volume 92 fL (80-100); Mean Platelet Volume 10.9 fL (9.1-12.4); NEUTROPHILS ABSOLUTE AUTO 2.36 K/mm3 (1.96-9.15); NEUTROPHILS PERCENT AUTO 51 % (41-73); Platelet Count 112 K/mm3 (150-400); RDW Coefficient Variation 15.9 % (11.7-14.2); RDW Standard Deviation 53.6 fL (35.1-46.3); Red Blood Cell Count 4.34 M/mm3 (3.80-5.20); White Blood Cell Count 4.66 K/mm3 (4.00-11.30)
[2020-11-26 15:24] LABS: International Normalized Ratio 2.99; Prothrombin Time Results 29.2 Sec (9.7-11.5)
[2020-11-26 16:15] LABS: Albumin, Blood 2.8 g/dL (3.4-5.0); Albumin/Globulin Ratio 0.6 (0.8-1.8); Bilirubin, Total 1.3 mg/dL (0.1-1.0); Bun/Creatinine Ratio 39.3 (12.0-20.0); Calcium, Blood 8.8 mg/dL (8.5-10.1); Creatinine, Blood 1.07 mg/dL (0.40-1.00); Globulin, Blood 4.4 g/dL (2.2-4.0); Potassium, Blood 4.3 mmol/L (3.5-5.5); Total Protein, Blood 7.2 g/dL (6.4-8.2)
== END ==
LOC: LAB UVN 14:15 → EDSTATUS 15:11
PROVIDERS: Hospitalist
DX: E11.22 Type 2 diabetes mellitus with diabetic chronic kidney disease (principal); E11.59 Type 2 diabetes mellitus with other circulatory complications; N18.30 Chronic kidney disease, stage 3 unspecified; C90.00 Multiple myeloma not having achieved remission; I48.20 Chronic atrial fibrillation, unspecified; I50.32 Chronic diastolic (congestive) heart failure; Z88.6 Allergy status to analgesic agent; Z88.8 Allergy status to other drugs, medicaments and biological substances
CPT/HCPCS: 80053; 83036; 85025; 85610

== ENCOUNTER → 2020-12-20 | Outpatient (CLI) | payer MEDICARE, OTHER ==
[2020-12-20 08:26] LABS: Hematocrit 48.8 % (33.0-51.0)
[2020-12-20 08:42] LABS: Albumin, Blood 3.3 g/dL (3.4-5.0); Anion Gap 13 mmol/L (6-16); Blood Urea Nitrogen 140 mg/dL (8-24); Bun/Creatinine Ratio 74.5 (12.0-20.0); CO2, Blood 29 mmol/L (21-32); Calcium, Blood 9.7 mg/dL (8.5-10.1); Chloride, Blood 87 mmol/L (98-108); Creatinine, Blood 1.88 mg/dL (0.40-1.00); Glomerular Filtration Rate 26 (60-); Glucose, Blood 109 mg/dL (70-99); Phosphorus, Blood 5.6 mg/dL (2.5-4.9); Potassium, Blood 2.8 mmol/L (3.5-5.5); Sodium, Blood 129 mmol/L (136-145)
== END | disposition home or self-care (01) ==
LOC: LAB UVN 07:45 → EDSTATUS 11:31 → LAB UVN 12:00
PROVIDERS: Hospitalist
DX: C90.00 Multiple myeloma not having achieved remission (principal); I50.32 Chronic diastolic (congestive) heart failure; I48.20 Chronic atrial fibrillation, unspecified; N18.30 Chronic kidney disease, stage 3 unspecified
CPT/HCPCS: 80069; 85014; 85018

== ENCOUNTER → 2020-12-23 | Outpatient (CLI) | payer MEDICARE, OTHER ==
[2020-12-23 18:33] LABS: Magnesium, Blood 2.6 mg/dL (1.6-2.4)
[2020-12-23 18:38] LABS: Albumin, Blood 3.3 g/dL (3.4-5.0); Anion Gap 12 mmol/L (6-16); Blood Urea Nitrogen 126 mg/dL (8-24); Bun/Creatinine Ratio 81.8 (12.0-20.0); CO2, Blood 27 mmol/L (21-32); Calcium, Blood 9.7 mg/dL (8.5-10.1); Chloride, Blood 87 mmol/L (98-108); Creatinine, Blood 1.54 mg/dL (0.40-1.00); Glomerular Filtration Rate 33 (60-); Glucose, Blood 178 mg/dL (70-99); Phosphorus, Blood 4.8 mg/dL (2.5-4.9); Potassium, Blood 3.1 mmol/L (3.5-5.5); Sodium, Blood 126 mmol/L (136-145)
== END | disposition home or self-care (01) ==
LOC: EDSTATUS 11:35 → LAB UVN 16:05
PROVIDERS: Hospitalist
DX: N18.30 Chronic kidney disease, stage 3 unspecified (principal)
CPT/HCPCS: 80069; 83735

== ENCOUNTER → 2021-01-14 | Outpatient (CLI) | payer MEDICARE, OTHER ==
[~2021-01-14] MED LIST changes: +AMIODARONE HCL400 M2 PO; +LACT PO; +LINEZOLID PO; +MIDO5 PO
[2021-01-14 11:59] LABS: Anion Gap 9 mmol/L (6-16); Blood Urea Nitrogen 29 mg/dL (8-24); Bun/Creatinine Ratio 31.8 (12.0-20.0); CO2, Blood 26 mmol/L (21-32); Calcium, Blood 9.3 mg/dL (8.5-10.1); Chloride, Blood 104 mmol/L (98-108); Creatinine, Blood 0.91 mg/dL (0.40-1.00); Glomerular Filtration Rate >60 (60-); Glucose, Blood 123 mg/dL (70-99); Potassium, Blood 3.8 mmol/L (3.5-5.5); Sodium, Blood 139 mmol/L (136-145)
== END | disposition home or self-care (01) ==
LOC: EDSTATUS 10:19 → LAB UVN 11:03
PROVIDERS: Hospitalist
DX: I10 Essential (primary) hypertension (principal)
CPT/HCPCS: 80048

== ENCOUNTER → 2021-01-17 | Outpatient (CLI) | payer MEDICARE, OTHER ==
[2021-01-17 07:05] LABS: BASOPHILS ABSOLUTE AUTO 0.04 K/mm3 (0.00-0.23); BASOPHILS PERCENT AUTO 1 % (0-2); EOSINOPHILS ABSOLUTE AUTO 0.24 K/mm3 (0.00-0.68); EOSINOPHILS PERCENT AUTO 4 % (0-6); Hematocrit 38.2 % (33.0-51.0); Hemoglobin 12.4 g/dL (11.5-16.0); IMMATURE GRAN ABSOLUTE AUTO 0.01 K/mm3 (0.00-0.10); IMMATURE GRAN PERCENT AUTO 0 % (0-1); LYMPHOCYTES ABSOLUTE AUTO 1.89 K/mm3 (0.84-5.20); LYMPHOCYTES PERCENT AUTO 33 % (21-46); MONOCYTES ABSOLUTE AUTO 0.56 K/mm3 (0.16-1.47); MONOCYTES PERCENT AUTO 10 % (4-13); Mean Corpuscular HGB Conc 32.5 g/dL (31.5-36.5); Mean Corpuscular Volume 93 fL (80-100); Mean Platelet Volume 10.9 fL (9.1-12.4); NEUTROPHILS ABSOLUTE AUTO 3.06 K/mm3 (1.96-9.15); NEUTROPHILS PERCENT AUTO 53 % (41-73); Platelet Count 144 K/mm3 (150-400); RDW Coefficient Variation 15.3 % (11.7-14.2); RDW Standard Deviation 51.9 fL (35.1-46.3); Red Blood Cell Count 4.13 M/mm3 (3.80-5.20)
== END | disposition home or self-care (01) ==
LOC: LAB UVN 06:50 → EDSTATUS 10:20
PROVIDERS: Hospitalist
DX: N18.30 Chronic kidney disease, stage 3 unspecified (principal)
CPT/HCPCS: 85025

== ENCOUNTER → 2021-03-13 | Outpatient (CLI) | payer MEDICARE, OTHER ==
[~2021-03-13] MED LIST changes: +ASPIR 8181 M1 PO; +BUME1 PO; +CALCITONIN-SAL3.7 M1; +CELEXA10 MG PO; +Florastor250 MG PO; +PROBIOTIC1 EA13 PO
[2021-03-13 09:27] LABS: Albumin, Blood 3.3 g/dL (3.4-5.0); Anion Gap 7 mmol/L (6-16); Blood Urea Nitrogen 54 mg/dL (8-24); Bun/Creatinine Ratio 41.9 (12.0-20.0); CO2, Blood 27 mmol/L (21-32); Chloride, Blood 105 mmol/L (98-108); Creatinine, Blood 1.29 mg/dL (0.40-1.00); Glomerular Filtration Rate 40 (60-); Glucose, Blood 85 mg/dL (70-99); Potassium, Blood 4.8 mmol/L (3.5-5.5); Sodium, Blood 139 mmol/L (136-145)
== END | disposition home or self-care (01) ==
LOC: LAB UVN 05:00 → EDSTATUS 11:11
PROVIDERS: Internal Medicine Nephrology
DX: N18.30 Chronic kidney disease, stage 3 unspecified (principal)
CPT/HCPCS: 80069; 85018

== ENCOUNTER → 2021-03-25 | Outpatient (CLI) | payer MEDICARE, OTHER ==
[2021-03-25 06:30] LABS: BASOPHILS ABSOLUTE AUTO 0.04 K/mm3 (0.00-0.23); BASOPHILS PERCENT AUTO 1 % (0-2); EOSINOPHILS ABSOLUTE AUTO 0.32 K/mm3 (0.00-0.68); EOSINOPHILS PERCENT AUTO 7 % (0-6); Hematocrit 39.9 % (33.0-51.0); IMMATURE GRAN ABSOLUTE AUTO 0.01 K/mm3 (0.00-0.10); IMMATURE GRAN PERCENT AUTO 0 % (0-1); LYMPHOCYTES ABSOLUTE AUTO 1.66 K/mm3 (0.84-5.20); LYMPHOCYTES PERCENT AUTO 34 % (21-46); MONOCYTES ABSOLUTE AUTO 0.45 K/mm3 (0.16-1.47); MONOCYTES PERCENT AUTO 9 % (4-13); Mean Corpuscular HGB 31.3 pg (26.0-34.0); Mean Corpuscular HGB Conc 32.6 g/dL (31.5-36.5); Mean Corpuscular Volume 96 fL (80-100); Mean Platelet Volume 11.4 fL (9.1-12.4); NEUTROPHILS ABSOLUTE AUTO 2.46 K/mm3 (1.96-9.15); NEUTROPHILS PERCENT AUTO 50 % (41-73); Platelet Count 128 K/mm3 (150-400); RDW Coefficient Variation 14.3 % (11.7-14.2); RDW Standard Deviation 50.5 fL (35.1-46.3); Red Blood Cell Count 4.15 M/mm3 (3.80-5.20); White Blood Cell Count 4.94 K/mm3 (4.00-11.30)
[2021-03-25 06:37] LABS: Bun/Creatinine Ratio 34.2 (12.0-20.0); Creatinine, Blood 1.17 mg/dL (0.40-1.00); Potassium, Blood 4.4 mmol/L (3.5-5.5)
== END | disposition home or self-care (01) ==
LOC: LAB UVN 06:22 → EDSTATUS 11:13
PROVIDERS: Hospitalist
DX: C90.00 Multiple myeloma not having achieved remission (principal); I50.32 Chronic diastolic (congestive) heart failure; N18.30 Chronic kidney disease, stage 3 unspecified; I48.20 Chronic atrial fibrillation, unspecified
CPT/HCPCS: 80048; 85025

== ENCOUNTER 2021-03-30 18:42 | Inpatient (IN) | payer MEDICARE, OTHER ==
[~2021-03-30] VITALS: Ht 170.2 cm; Wt 139.0 kg
[~2021-03-30 18:42] MED LIST changes: -AMIODARONE HCL400 M2 PO; -ASPIR 8181 M1 PO; -BUME1 PO; -CALCITONIN-SAL3.7 M1; -CELEXA10 MG PO; -Florastor250 MG PO; -LACT PO; -LINEZOLID PO; -MIDO5 PO; -PROBIOTIC1 EA13 PO
[2021-03-30 19:13] LABS: BASOPHILS ABSOLUTE AUTO 0.03 K/mm3 (0.00-0.23); BASOPHILS PERCENT AUTO 1 % (0-2); EOSINOPHILS PERCENT AUTO 3 % (0-6); Hematocrit 42.9 % (33.0-51.0); Hemoglobin 13.8 g/dL (11.5-16.0); IMMATURE GRAN ABSOLUTE AUTO 0.01 K/mm3 (0.00-0.10); IMMATURE GRAN PERCENT AUTO 0 % (0-1); LYMPHOCYTES ABSOLUTE AUTO 1.92 K/mm3 (0.84-5.20); LYMPHOCYTES PERCENT AUTO 30 % (21-46); MONOCYTES ABSOLUTE AUTO 0.54 K/mm3 (0.16-1.47); MONOCYTES PERCENT AUTO 9 % (4-13); Mean Corpuscular HGB 31.2 pg (26.0-34.0); Mean Corpuscular HGB Conc 32.2 g/dL (31.5-36.5); Mean Corpuscular Volume 97 fL (80-100); Mean Platelet Volume 11.3 fL (9.1-12.4); NEUTROPHILS ABSOLUTE AUTO 3.65 K/mm3 (1.96-9.15); NEUTROPHILS PERCENT AUTO 58 % (41-73); Platelet Count 123 K/mm3 (150-400); RDW Coefficient Variation 14.6 % (11.7-14.2); RDW Standard Deviation 52.3 fL (35.1-46.3); Red Blood Cell Count 4.43 M/mm3 (3.80-5.20); White Blood Cell Count 6.35 K/mm3 (4.00-11.30)
[2021-03-30 19:28] LABS: Albumin, Blood 3.1 g/dL (3.4-5.0); Albumin/Globulin Ratio 0.8 (0.8-1.8); Bilirubin, Total 1.1 mg/dL (0.1-1.0); Bun/Creatinine Ratio 27.2 (12.0-20.0); Calcium, Blood 8.6 mg/dL (8.5-10.1); Creatinine, Blood 1.84 mg/dL (0.40-1.00); Magnesium, Blood 2.5 mg/dL (1.6-2.4); Potassium, Blood 5.1 mmol/L (3.5-5.5); Total Protein, Blood 7.1 g/dL (6.4-8.2)
[2021-03-30 19:32] LABS: Thyroid Stimulating Hormone 1.76 uIU/mL (0.360-4.800)
[2021-03-30 21:19] LABS: Source, Urine Clean Catch
[2021-03-30 21:24] LABS: Bilirubin, Urine Neg (Neg); Blood, Urine 4+ (Neg); Glucose Qualitative, Urine Neg (Neg); Ketones, Urine Neg (Neg); Leukocyte Esterase, Urine 2+ (Neg); Nitrite, Urine Neg (Neg); Protein, Urine 3+ (Neg); Urobilinogen, Urine NORM (Normal)
[2021-03-30 21:31] LABS: Appearance, Urine Cloudy (Clear); Color, Urine Pale Yellow (P-Yellow)
[2021-03-30 21:32] LABS: Amorphous Mod (0-Heavy); Bacteria Many /hpf; Red Blood Cells, Urine 25-50 /hpf (0-2); Squamous Epithelial Cells Rare /hpf (Few)
[2021-03-30 21:33] LABS: Yeast/Fungi Urine Rare /hpf
--- NOTE | 2021-03-31 00:42 | NUR ---
ADMISSION REPORT RECIEVED FROM ER NURSE. PATIENT ARRIVED TO PCU 17 AND WAS SLID OVER TO PCU BED WITH ASSISTANCE OF STAFF. HR ON ARRIVAL WAS SINUS TACH 106 PER FINANCIAL AID OFFICER. SOFT BPs IN THE 100s SYSTOLIC. ALL OTHER VITALS STABLE AND PATIENT IS ON RA WITH O2 SATS >90%. DENIES CHEST PAIN. CALCIUM GLUCINATE FINISHED INFUSING UPON ARRIVAL, BICARB GTT INFUSING AT 75 mls/hr. CONSENT TO PHOTOGRAPH WOUNDS OBTAINED. SEE CHART. PATIENT ORIENTED TO ROOM/CALL LIGHT SYSTEM. ABLE TO MAKE NEEDS KNOWN TO STAFF. DENIES OTHER NEEDS AT THIS TIME.
[2021-03-31 05:20] LABS: BASOPHILS ABSOLUTE AUTO 0.04 K/mm3 (0.00-0.23); BASOPHILS PERCENT AUTO 1 % (0-2); EOSINOPHILS ABSOLUTE AUTO 0.01 K/mm3 (0.00-0.68); EOSINOPHILS PERCENT AUTO 0 % (0-6); Hematocrit 42.1 % (33.0-51.0); Hemoglobin 13.5 g/dL (11.5-16.0); IMMATURE GRAN ABSOLUTE AUTO 0.02 K/mm3 (0.00-0.10); IMMATURE GRAN PERCENT AUTO 0 % (0-1); LYMPHOCYTES ABSOLUTE AUTO 1.94 K/mm3 (0.84-5.20); LYMPHOCYTES PERCENT AUTO 24 % (21-46); MONOCYTES ABSOLUTE AUTO 0.54 K/mm3 (0.16-1.47); MONOCYTES PERCENT AUTO 7 % (4-13); Mean Corpuscular HGB 31.1 pg (26.0-34.0); Mean Corpuscular HGB Conc 32.1 g/dL (31.5-36.5); Mean Corpuscular Volume 97 fL (80-100); Mean Platelet Volume 10.9 fL (9.1-12.4); NEUTROPHILS ABSOLUTE AUTO 5.48 K/mm3 (1.96-9.15); NEUTROPHILS PERCENT AUTO 68 % (41-73); Platelet Count 153 K/mm3 (150-400); RDW Coefficient Variation 14.6 % (11.7-14.2); RDW Standard Deviation 52.2 fL (35.1-46.3); Red Blood Cell Count 4.34 M/mm3 (3.80-5.20); White Blood Cell Count 8.03 K/mm3 (4.00-11.30)
[2021-03-31 05:49] LABS: Albumin, Blood 3.3 g/dL (3.4-5.0); Albumin/Globulin Ratio 0.8 (0.8-1.8); Bilirubin, Total 1.6 mg/dL (0.1-1.0); Bun/Creatinine Ratio 25.6 (12.0-20.0); Calcium, Blood 9.3 mg/dL (8.5-10.1); Creatinine, Blood 2.19 mg/dL (0.40-1.00); Potassium, Blood 5.6 mmol/L (3.5-5.5); Total Protein, Blood 7.3 g/dL (6.4-8.2)
--- NOTE | 2021-03-31 06:04 | NUR ---
SHIFT SUMMARY PATIENT ALERT AND ORIENTED x4. SOFT SBPs IN THE 90s-100s AND HR HIGH 40s-MID 50s. PATIENT ASYMPTOMATIC SINCE ADMISSION. ALL OTHER VITALS STABLE. ZOLL AND ATROPINE REMAIN AT BEDSIDE. DENIES CHEST PAIN. PATIENT STRAIGHT CATHED IN ER, HAS NOT HAD OUTPUT SINCE ADMISSION. BLADDER SCAN DONE WITH ONLY 180 mls IN BLADDER. TOLERATING PO FLUIDS WELL. BICARB GTT INFUSING AT 75mls/hr. MEDICATED FOR PAIN AND NAUSEA PER EMAR. PATIENT ABLE TO MAKE NEEDS KNOWN TO STAFF. WILL REPORT TO DAY SHIFT RN.
--- NOTE | 2021-03-31 07:59 | NUR ---
Pt is A&O, anxious. Pt reports she uses lift at [facility]. HR is in the 40s. Pt reports no dizziness but does report nausea. BP stable at this time. VSS on RA, with HR in 40s. sodium bicarb is running at 75ml/hr per orders. Pt did not eat much breakfast, only a few bites.
--- NOTE | 2021-03-31 09:55 | NUR ---
Dr. Frazier was updated on HR. HR has been 40s all morning. Pt reports nausea when she moves around, but reports she has not been lightleaded this AM. Consult called to Dr. Baron, he will round on pt. Bladder scanned 202 with minimal output, Dr. Frazier said ok to place rosales.
--- NOTE | 2021-03-31 11:44 | NUR ---
Pt daughter was updated.
--- NOTE | 2021-03-31 11:59 | NUR ---
Dinh placed without complication. Pt threw up, maxed out on prn nausea meds at this time, will call .
[2021-03-31 13:01] LABS: Source, Urine Foley catheter
[2021-03-31 13:15] LABS: Bilirubin, Urine Neg (Neg); Blood, Urine 5+ (Neg); Glucose Qualitative, Urine Neg (Neg); Ketones, Urine Neg (Neg); Leukocyte Esterase, Urine 1+ (Neg); Nitrite, Urine Neg (Neg); Protein, Urine 2+ (Neg); Specific Gravity, Urine 1.015 (1.003-1.022); Urobilinogen, Urine NORM (Normal)
[2021-03-31 13:26] LABS: Appearance, Urine Hazy (Clear); Color, Urine Pale Yellow (P-Yellow)
[2021-03-31 13:28] LABS: Bacteria Few /hpf; Mucus Light (0-Heavy); Squamous Epithelial Cells Few /hpf (Few)
[2021-03-31 13:29] LABS: Amorphous Light (0-Heavy)
--- NOTE | 2021-03-31 13:32 | NUR ---
Pt alertness is decreasing, and BP has been decreasing and MAP <65. MD notified and told to give atropin .5mg due to HR 40s. Dose given and cardiology consulted. Wire Puller told to give another .5mg of atropine. given and HR now 50s. Pt anxious. ABGs ordered and additional labs.
[2021-03-31 13:43] LABS: PCO2 Arterial 27.4 mmHg (35-45); pH Blood Arterial 7.43 (7.35-7.45)
--- NOTE | 2021-03-31 14:23 | NUR ---
I spoke with Dr. Frazier regarding pt potassium. K was 5.7 on most recent labs, MD said he will put in orders. Notifed MD that pt is having twitching in arms, MD said pt has had these in clinic previously as well. Pt is on CPAP sating well, BP and HR have improved since 1mg of atropine. HR sustaining in 50s.
[2021-03-31 14:33] LABS: Albumin, Blood 3.4 g/dL (3.4-5.0); Albumin/Globulin Ratio 0.8 (0.8-1.8); Calcium, Blood 9.8 mg/dL (8.5-10.1); Creatinine, Blood 2.57 mg/dL (0.40-1.00); Potassium, Blood 5.8 mmol/L (3.5-5.5); Total Protein, Blood 7.4 g/dL (6.4-8.2)
--- NOTE | 2021-03-31 15:12 | NUR ---
K 5.7, PO TEKELMA GIVEN PER ORDERS.
--- NOTE | 2021-03-31 16:10 | NUR ---
Pt is less oriented than this AM, oriented x2 now. Mentation has decreased and pt is more lethargic than AM, pt wakes up quickly when in room. VSS on RA. HR 50s mainly, with some drops into 40s. Will notify .
--- NOTE | 2021-03-31 16:28 | NUR ---
Pt is starting to pull at lines and is only oriented x2 and has decreased in mentation, MD notified and he will be adding in blood cultures and antibiotics.
--- NOTE | 2021-03-31 16:53 | NUR ---
Shift note: Pt has decreased in mentation today. Pt has become for lethargic throughout the day and orientatin has decreased from oriented x4 to oriented x2, MD notified and blood cultures ordered. Pt has been having shaking/ muslce twitching throughout today as well, MD notified. BP has been soft, improved some after atropine. Atropine was given around 1300 for HR sustaining in 40s and symptomatic, HR has mainly been in the 50s since atropine. Pt is on RA and RT set up CPAP in room. Pt did wear CPAP briefly this afternoon, but then pulled it off. Pt has been pulling at lines more this evening as orientation has been decreasing. UA was sent to lab after rosales insertion. K was 5.7, tokelma given per orders. Sodium bicarb finished afte 1L infusion. NS was started at 75ml/hr. Pt has been nauseaous today, prn zofran given. No BM today and pt reports it has been a few days. EKG done, see chart. Pt reports she uses lift at [facility]. 2 person max assist. Her skin is reddened and excoriated between legs and under fold. Swelling in BLE. Consults to cardiology and nephrology today.
--- NOTE | 2021-03-31 18:10 | NUR ---
FOUND pulling on tele. Noticed redness in rosales. I am thinking she has been pulling on rosales line, red urine due to pt pulling. We may need to get restraint order to avoid pt pulling at rosales and IV lines.
--- NOTE | 2021-03-31 20:00 | NUR ---
DR BROOKS IS NOTIFIED OF PT'S DECLINING MENTATION, POOR UO WITH DARK RED URINE, FEVER 100.8, AGITATION AND ALL CURRENT VS. PT HAS BLD CX AND URINE CX PENDING AND HAS ALREADY BEEN STARTED ON ABX, SO HEAD CT AND MI TYLENOL IS ORDERED.
--- NOTE | 2021-03-31 22:30 | NUR ---
BLADDER SCANNED 19ML. PATEL IRRIGATED WITH 20ML NS AND APPROX 20ML RETURN RED URINE.
--- NOTE | 2021-03-31 22:47 | NUR ---
DR BROOKS IS UPDATED WITH CT RESULTS AND DARK RED UO OF 50. LABS AND PT STATUS ARE REVIEWED AND NO NEW ORDERS ARE RECEIVED.
--- NOTE | 2021-03-31 23:00 | NUR ---
DR GUSMAN IS NOTIFIED OF POOR UO AND HEMATURIA. ORDER RECEIVED TO FLUSH PATEL CATHETER NEEDED.
--- NOTE | 2021-04-01 01:30 | NUR ---
RT ATTEMPTS TO PLACE CPAP ON PT AGAIN. SHE JUST TAKES IT OFF. SHE IS SLEEPING RESTLESSY.
[2021-04-01 04:01] LABS: BASOPHILS ABSOLUTE AUTO 0.01 K/mm3 (0.00-0.23); BASOPHILS PERCENT AUTO 0 % (0-2); EOSINOPHILS PERCENT AUTO 0 % (0-6); Hematocrit 42.2 % (33.0-51.0); Hemoglobin 13.5 g/dL (11.5-16.0); IMMATURE GRAN ABSOLUTE AUTO 0.03 K/mm3 (0.00-0.10); IMMATURE GRAN PERCENT AUTO 0 % (0-1); LYMPHOCYTES ABSOLUTE AUTO 1.58 K/mm3 (0.84-5.20); LYMPHOCYTES PERCENT AUTO 18 % (21-46); MONOCYTES ABSOLUTE AUTO 0.82 K/mm3 (0.16-1.47); MONOCYTES PERCENT AUTO 9 % (4-13); Mean Corpuscular HGB 30.8 pg (26.0-34.0); Mean Corpuscular Volume 96 fL (80-100); Mean Platelet Volume 11.3 fL (9.1-12.4); NEUTROPHILS ABSOLUTE AUTO 6.53 K/mm3 (1.96-9.15); NEUTROPHILS PERCENT AUTO 73 % (41-73); Platelet Count 164 K/mm3 (150-400); RDW Coefficient Variation 14.7 % (11.7-14.2); RDW Standard Deviation 52.6 fL (35.1-46.3); Red Blood Cell Count 4.38 M/mm3 (3.80-5.20); White Blood Cell Count 8.97 K/mm3 (4.00-11.30)
[2021-04-01 04:27] LABS: Bun/Creatinine Ratio 22.9 (12.0-20.0); Calcium, Blood 10.2 mg/dL (8.5-10.1); Creatinine, Blood 3.01 mg/dL (0.40-1.00); Free Thyroxine 1.82 ng/dL (0.70-1.60); Potassium, Blood 5.4 mmol/L (3.5-5.5); Thyroid Stimulating Hormone 3.02 uIU/mL (0.360-4.800)
--- NOTE | 2021-04-01 05:54 | NUR ---
DR GUSMAN IS UPDATED WITH AM LABS AND UO OF 100ML OVERNIGHT. NEW ORDER FOR IVF WITH BICARB RECEIVED. NO OTHER ORDERS.
--- NOTE | 2021-04-01 06:17 | NUR ---
DR GUSMAN AT BEDSIDE. ORDER TO CHANGE RATE FOR IVF TO 50ML/HR AND FLUSH PATEL NEEDED FOR HEMATURIA.
--- NOTE | 2021-04-01 06:29 | NUR ---
NO CHANGE IN MENTATION OVERNIGHT. PT BECOMES DYSNPEIC AND SPO2 DROPS TO THE 80'S WHILE CHANGING HER ATTENDS, BUT RECOVERS QUICKLY WHEN REPOSITIONED TO SITTING. HR MOSTLY IN THE 50'S TO 60'S OVERNIGHT, BP WNL. OU IS POOR WITH 100ML BLOODY URINE, OF WHICH DR GUSMAN IS AWARE. IVF IS CHANGED TO D5W WITH 3 AMPS BICARB AT 50ML/HR. WILL CONTINUE TO MONITOR AND REPORT TO ONCOMING SHIFT.
--- NOTE | 2021-04-01 11:07 | NUR ---
Pt continues to be lethargic and minimally responsive. Only oriented to self. Responds to voice stimuli, but falls back to sleep quickly. Dr. Frazier assessed pt at bedside. STAT CT ordered and ammonia level. VSS on RA and CPAP. BICARB is running at 50ml/hr. Minimal urine output and red urine. Pt only had 100ml out overnight. Pt tugged at rosales yesterday which has caused some trauma and bloody urine. 2 PIVs in each forarm flushing well.
--- NOTE | 2021-04-01 11:31 | NUR ---
Case conference with pt's [facility] PCP and hospitalist yesterday re: her previous wishes in regard to code status. Will attempt to visit pt and confirm her wishes today.
--- NOTE | 2021-04-01 11:58 | NUR ---
Pt only tolerated CPAP for about an hour. She was nausous so we took CPAP off and medicated for nausea. On RA pt is sating mid-high 90s. Pt still having shaking/ muscle twitching on and off, notified of this in AM.
--- NOTE | 2021-04-01 13:33 | NUR ---
Spiritual care visit conducted. Patient is lying in bed and very restless. She opens her eyes upon my introduction but then only for seconds at a time after that. She answers in very short sentences or not at all in my attempt to communicate. Pt's first statement is "I want to go home." She does not answer when I ask about the particulars of that task, given her current level of medical ambulatory support. I ask questions on different topics but she does not respond, then I asked her if I could say a prayer for her and she says, "Yes." I gladly provide prayer. Pt then says, "Thank you." I will continue to offer support.
--- NOTE | 2021-04-01 14:18 | NUR ---
Initial Pal Care visit - RN called to inform of family at bedside. Visit made to pt and sister, Stephani, ([phone] Lives in [place]) at bedside. Stephani was on phone with pt's rosalinda Liset ([phone] lives in [place]). We put Liset on speaker phone for conversation re: current status and concerns. Pt did not open her eyes t/o my visit. She had some moaning and frequent twitching and restless limb movement but did not appear to wake or be listening to our conversation. I reviewed pt's current code status of desiring CPR but no other resuscitative efforts with rosalinda and sister. I reviewed what I know of current clinical concerns including LOC, N/V, twitching and cont renal failure. Rosalinda verbalized understanding and will discuss code status further with her dad, who lives locally but is in poor health at home. Her mom has lived at [facility] since late 2018. Sister reports that she has cont to say she would return home but has been unable to due to cont decline in health and ADL abilities. Rosalinda is [facility] this evening and [facility] [place] [facility]. Permission obtained for her to come visit her mom when she arrives and screener notified. Rosalinda [facility]. Update on my visit to nursing telephone supervisor, bedside RN & Dr Frazier. Family meeting arranged for 9am, Wed morning at bedside for rosalinda and , per his request. Rosalinda confirmed she can be there at that time. Sister updated on all of this also. Sister is headed back to [place] this afternoon. will review in more detail with rosalinda tomorrow, pt's current renal and overall status, tx options, concerns for other processes causing anemia, bradycardia, decrease in LOC/cognition and s/s of N/V, worsening renal and resp function and prognosis. Goals of care to be determined after that family conference with . Palliative Care will remain available for support and s/s management, advanced care planning. Rosalinda verbalized she may want to update pt's current POLST after meeting with
--- NOTE | 2021-04-01 15:51 | NUR ---
Spoke with Dr. Frazier to get update on plan. He will be starting a heparin gtt and wanted to get EKG. Rate jumped up to 120s around 0730 and has remained 120s consistantly throughout the day. EKG done and showed accelerated junctional rythym, Dr. Garcia and Dr. Frazier updated.
[2021-04-01 17:58] LABS: Eosinophils-Raw #,Urine 1
--- NOTE | 2021-04-01 18:17 | NUR ---
Shift note: Pt is only oriented to self lethargic throughout the day with times where she will wake up and answer some questions. Wakes up to touch and voice. Bicarb continued at 50ml/hr. ~300ml out today. Lokelma was given in AM, but unable to give at 1400 due to mentation. Pt remains on RA and CPAP as pt can tolerate. Pt tolerated CPAP for about an hour and then became nauseaous. Pt did vomit once today 200ml greenish emesis, prn zofran given. ordered heparin gtt and d/c eliquis. Pharmacy will start heparin gtt at 2100 since pt had eliquis in AM. Dr. Baron consulted in AM and Dr. Vaca was updated on rythm and rate. A STAT head CT was done in AM after Dr. Frazier assessed at bedside. Ammonia level was also checked and was normal. Dinh still draining reddish urine, but it is lightening up some. VSS on RA, BP on soft side. Tele: around 0720 pt converted to an accelerated rythm. HR was 50-60s overnight until 0720 when she was 120, MD notifed. Pt remained 120s all day and MD ordered new EKG, interpretation read accelerated junctional rythm.
[2021-04-01 18:18] LABS: International Normalized Ratio 2.2; Prothrombin Time Results 21.9 Sec (9.7-11.5)
--- NOTE | 2021-04-02 03:41 | NUR ---
CHANGE IN RHYTHM: PATIENT HAS BEEN IN JUNCTION RHYTHM 130'S THROUGH THE NIGHT. INFORMED HOSPITALIST, WAS INFORMED TO CALL CARDIOLOGY, LEFT MESSAGE ON ENVIRONMENTAL AUDITOR CELL FOR RETURN CALL. PATIENT IS ASYMPTOMATIC SLEEPING, WITH CPAP. NO NEW ORDERS FROM HOSP. WILL CONTINUE TO MONITOR.
--- NOTE | 2021-04-02 04:34 | NUR ---
END OF SHIFT SUMMARY: PATIENT HAS BEEN SLEEPING WELL THROUGH THE NIGHT, WITH THE ONLY OCCASIONAL WAKING TO TAKE A QUICK BREAK FROM THE CPAP. SHE HAS AN OCCASIONAL PRODUCTIVE COUGH, THAT IS THICK BUT CLEAR. PATIENT HAS BEEN IN A JUNCTIONAL RHYTHM IN THE 130'S BUT WILL LIO DOWN/ PAUSE, CALL PLACED TO HOSPITALIST AND CARDIOLOGY LEFT VM WITH CARDIO NO NEW ORDERS FROM HOSPITALIST. PATIENT DENIES CHEST PAIN, HAS BEEN MORE ALERT, FAMILY DAUGHTER LUKASZ IS AT THE BEDSIDE. SODIUM BICARB RUNNING, HEPARIN RUNNING WELL. LABS DRAWN STILL PENDING.
[2021-04-02 04:38] LABS: BASOPHILS ABSOLUTE AUTO 0.03 K/mm3 (0.00-0.23); BASOPHILS PERCENT AUTO 0 % (0-2); EOSINOPHILS ABSOLUTE AUTO 0.06 K/mm3 (0.00-0.68); EOSINOPHILS PERCENT AUTO 1 % (0-6); Hematocrit 36.2 % (33.0-51.0); Hemoglobin 12.2 g/dL (11.5-16.0); IMMATURE GRAN ABSOLUTE AUTO 0.01 K/mm3 (0.00-0.10); IMMATURE GRAN PERCENT AUTO 0 % (0-1); LYMPHOCYTES ABSOLUTE AUTO 1.17 K/mm3 (0.84-5.20); LYMPHOCYTES PERCENT AUTO 15 % (21-46); MONOCYTES ABSOLUTE AUTO 0.65 K/mm3 (0.16-1.47); MONOCYTES PERCENT AUTO 9 % (4-13); Mean Corpuscular HGB 31.4 pg (26.0-34.0); Mean Corpuscular HGB Conc 33.7 g/dL (31.5-36.5); Mean Corpuscular Volume 93 fL (80-100); Mean Platelet Volume 10.4 fL (9.1-12.4); NEUTROPHILS ABSOLUTE AUTO 5.74 K/mm3 (1.96-9.15); NEUTROPHILS PERCENT AUTO 75 % (41-73); Platelet Count 126 K/mm3 (150-400); RDW Coefficient Variation 14.6 % (11.7-14.2); RDW Standard Deviation 49.9 fL (35.1-46.3); Red Blood Cell Count 3.89 M/mm3 (3.80-5.20); White Blood Cell Count 7.66 K/mm3 (4.00-11.30)
[2021-04-02 04:46] LABS: Albumin/Globulin Ratio Unable to Calculate (0.8-1.8); Anion Gap Unable to Calculate mmol/L (6-16); Bun/Creatinine Ratio Unable to Calculate (12.0-20.0); Globulin, Blood Unable to Calculate g/dL (2.2-4.0); Glomerular Filtration Rate Unable to Calculate (60-)
[2021-04-02 05:05] LABS: Albumin, Blood 3.2 g/dL (3.4-5.0); Albumin/Globulin Ratio 0.9 (0.8-1.8); Bilirubin, Total 1.9 mg/dL (0.1-1.0); Bun/Creatinine Ratio 27.2 (12.0-20.0); C-REACTIVE PROTEIN, EXT RANGE 4.91 mg/dL (0.000-0.300); Creatinine, Blood 2.5 mg/dL (0.40-1.00); Globulin, Blood 3.4 g/dL (2.2-4.0); Magnesium, Blood 2.4 mg/dL (1.6-2.4); Phosphorus, Blood 4.4 mg/dL (2.5-4.9); Potassium, Blood 3.8 mmol/L (3.5-5.5); Total Protein, Blood 6.6 g/dL (6.4-8.2)
--- NOTE | 2021-04-02 08:45 | NUR ---
INITIAL ASSESSMENT: Patient is resting comfortably with her eyes closed, C-Pap in place. She awakens with verbali stimuli. She is alert and oriented to self, place, her daughter. She told me it was october, but she was easily reoriented. She denies pain at this time. HR Irreg, currently it is a-fib in the 130s-140s, there are brief periods that she drops down into the 50s-sinus aliyah with PVCs and PACs. LS DIM T/O, biox 98% on C-Pap 10 mg, h2o. BT+, non-tender to light palpation. PPP. She has some discoloration to her BLE from her shins down. 1-2+ pitting edema in her BLE. She has some scattered open areas to her buttocks, barrier cream applied with attends change. AM meds given at this time one at a time with water. Hep gtt restarted at 10 units/kg/hr. Patient and daughter deny other needs at this time. Call light in reach, will continue to monitor.
--- NOTE | 2021-04-02 11:20 | NUR ---
[facility] visit made after Rosalinda met with . Rosalinda had started to complete POLST and we reviewed and completed POLST at bedside with pt able to give input and converse with us today. She looks remarkably better in LOC, alertness, communication and cognitive ability since yesterday afternoon when I saw her last. Pt has chosen DNR status with limited interventions but no intubation, only noninvasive resp support such as CPAP/BPAP desired. Due to her current acute on chronic renal failure, I asked them to also discuss dialysis and whether pt would want that if needed. Pt started shaking her head no and then said, "no, I don't want to do that". Pt became very tired again and requested Mask for CPAP/BPAP be replaced so she could nap. Rosalinda will further discuss dialysis with pt later. Pt's RN and updated on my visit and changes to the POLST awaiting signature from Dr. BRUCE obtained and entered for DNR status per pt's wishes. Pt denied pain when nursing unit manager came in to reassess and replace mask. Plan to process POLST once signed by Dr. Tellez would like several copies with the original when returned. We will also make sure E[facility] gets a copy. Dr Frazier is her PCP.
--- NOTE | 2021-04-02 12:30 | NUR ---
Update: Patient continues to rest and visit with family. Dr. Frazier has been by to see the patient and talk with the daughter about plan of care. POLST was changed to DNR. Patient and daughter deny other needs at this time. Call light in reach, will continue to monitor.
--- NOTE | 2021-04-02 16:00 | NUR ---
Update: Assessment unchanged. Patient resting comfortably. PTT came back critially high, hep gtt stopped. Call light in reach. Will continue to monitor.
--- NOTE | 2021-04-02 19:37 | NUR ---
Summary: Patient was admitted with bradycardia. She has been alert and oriented t/o my shift. No C/O pain. HR has been irregular primarily a-fib in the 130s-140s, she has periods that she drops down into sinus aliyah with a rate of 50-60. LS have been diminshed with insp wheezing in the upper lobes. Her biox has been stable on her c-pap with 10 cm H2O and RA. BT+, she had 2 bowel movements today. She has a rosales cath patent and draining dark yellow urine. She has some dry discoloration to her BLE. Blood pressure was a little soft at the beginning of the shift and improved t/o the day. She has had family at the bedside t/o the day. No changes this shift. Report given to Bennett DE LA PAZ RN.
[2021-04-02 22:47] LABS: Anti-Xa UFH, PHA Monitoring >1.50 IU/mL
--- NOTE | 2021-04-03 04:25 | NUR ---
END OF SHIFT SUMMARY: PATIENT STILL ALERT AND ORIENTED X3, BASELINE TREMOR STILL PRESENT, PATIENT HAS BEEN PLEASANT, DENYING CHEST PAIN, OR SOB AT THIS TIME. Q2 TURNS. ATINET IS CURRENLTY ON THE CPAP SPO2 >95%. HEPARIN RUNNING AT 9 U. WHICH IS AN INCREASE FROM 8 AT THE START OF SHIFT LABS TO BE LINEDRAWN AT 0500 FOR MORNING LABS AND ANTI Xa. COMPLETE BED BATH, AND CATHETER CARE COMPLETE. PATINET SKIN IS DRY BUT IMPROVING, ALL LINES FLUSH AND POWERGLIDE DRAWS WELL. LUNGS UNCHANGED, 2 BM'S TONIGHT. ECHO RESULTS BACK, PLEASE SEE REPORT. WILL CONTINUE TO MONITOR.
[2021-04-03 05:22] LABS: Hematocrit 37.4 % (33.0-51.0); Hemoglobin 12.2 g/dL (11.5-16.0)
[2021-04-03 05:37] LABS: Albumin, Blood 3.1 g/dL (3.4-5.0); Anion Gap 8 mmol/L (6-16); Blood Urea Nitrogen 55 mg/dL (8-24); Bun/Creatinine Ratio 30.2 (12.0-20.0); CO2, Blood 25 mmol/L (21-32); Calcium, Blood 8.9 mg/dL (8.5-10.1); Chloride, Blood 107 mmol/L (98-108); Creatinine, Blood 1.82 mg/dL (0.40-1.00); Glomerular Filtration Rate 27 (60-); Glucose, Blood 100 mg/dL (70-99); Magnesium, Blood 2.4 mg/dL (1.6-2.4); Phosphorus, Blood 2.5 mg/dL (2.5-4.9); Potassium, Blood 3.5 mmol/L (3.5-5.5); Sodium, Blood 140 mmol/L (136-145)
[2021-04-03 15:13] LABS: Anti-Xa UFH, PHA Monitoring 1.46 IU/mL
--- NOTE | 2021-04-03 18:15 | NUR ---
SHIFT SUMMARY: PT HAS BEEN A&OX3 DURING WHOLE OF SHIFT. HR IS LIO/TACHY BETWEEN 50'S AND 130'S DURING SHIFT. PATEL CATHETER IN PLACE DRAINING TEA COLORED URINE WITH SCANT SEDAMENT. PT ATTEMPTED TO REPOSITION Q2HRS, PT DOES NOT TOLERATE TURING FROM SIDE TO SIDE WELL. DR. ADAM INFORMED PT COMPLAINING OF SORE THROAT, OBSERVED RED AND WHITE PATCHES IN MOUTH. FAMILY ATTENTIVE AT BEDSIDE. CALL LIGHT IN REACH.
[2021-04-03] MEDS ORDERED: SODBIC650 PO (22:08)
[2021-04-04 03:37] LABS: BASOPHILS ABSOLUTE AUTO 0.02 K/mm3 (0.00-0.23); BASOPHILS PERCENT AUTO 0 % (0-2); EOSINOPHILS ABSOLUTE AUTO 0.15 K/mm3 (0.00-0.68); EOSINOPHILS PERCENT AUTO 3 % (0-6); Hematocrit 38.2 % (33.0-51.0); Hemoglobin 12.1 g/dL (11.5-16.0); IMMATURE GRAN ABSOLUTE AUTO 0.01 K/mm3 (0.00-0.10); IMMATURE GRAN PERCENT AUTO 0 % (0-1); LYMPHOCYTES ABSOLUTE AUTO 1.17 K/mm3 (0.84-5.20); LYMPHOCYTES PERCENT AUTO 20 % (21-46); MONOCYTES ABSOLUTE AUTO 0.49 K/mm3 (0.16-1.47); MONOCYTES PERCENT AUTO 8 % (4-13); Mean Corpuscular HGB Conc 31.7 g/dL (31.5-36.5); NEUTROPHILS ABSOLUTE AUTO 4.02 K/mm3 (1.96-9.15); NEUTROPHILS PERCENT AUTO 69 % (41-73); Platelet Count 145 K/mm3 (150-400); RDW Standard Deviation 52.8 fL (35.1-46.3); White Blood Cell Count 5.86 K/mm3 (4.00-11.30)
[2021-04-04 03:40] LABS: Mean Corpuscular Volume 98 fL (80-100)
[2021-04-04 03:49] LABS: Bun/Creatinine Ratio 30.8 (12.0-20.0); Calcium, Blood 8.5 mg/dL (8.5-10.1); Creatinine, Blood 1.46 mg/dL (0.40-1.00); Potassium, Blood 3.8 mmol/L (3.5-5.5)
--- NOTE | 2021-04-04 04:48 | NUR ---
SHIFT SUMMARY PT REMAINS ALERT AND ORIENTED. VS STABLE. O2 SATS REMAIN ABOVE 90% ON CPAP TO ROOM AIR. HR HAS BEEN SICK SINUS, IN THE 50-60'S AT TIMES OR UP TO THE 130'S. PT DENIES ANY PAIN. PATEL PATENT AND DRAINING DARK YELLOW URINE. PT HAD BM THIS SHIFT. PT REPOSITIONED Q2H. HEP GTT INFUSING PER ORDERS. WILL CONTINUE TO MONITOR AND REPORT TO ONCOMING RN
--- NOTE | 2021-04-04 11:27 | NUR ---
update TELE NOTIFIED THIS RN THAT PT HR DROPPED TO THE 40'S MOMENTARILY AND RETURNED TO 110-120'S. PT DOES NOT REPORT ANY SYMPTOMS. WHILE IN ROOM, PT HR DROPPED TO 30'S BRIEFLY AND WOULD RETURN TO 110'S.
[2021-04-04 11:37] LABS: Anti-Xa UFH, PHA Monitoring 0.86 IU/mL
--- NOTE | 2021-04-04 18:14 | NUR ---
SHIFT SUMMARY PT A/OX4 AND COOPERATIVE OF CARE. VSS THROUGHOUT SHIFT WITH O2 SATS >97% ON RA AND CPAP WHEN SLEEPING. NO REPORT OF CHEST PAIN/PRESSURE THROUGHOUT SHIFT. PT USED CPAP PRN DURING SHIFT WHEN SHE WAS PLANNING ON RESTING. PT REPORTED KNEE PAIN, REPOSITIONED AND TREATED PER EMAR. PT WOULD FIDGET HER ARMS WHEN DEALING WITH PAIN, PT REPORTS THAT IS NORMAL. PATEL IN PLACE DRAINING TO GRAVITY, DARK SOFIA URINE. DAUGHTER AT THE BEDSIDE FOR MAJORITY OF SHIFT. HEPARIN GTT STOPPED, ELIQUIS PO MED STARTED PER EMAR.
--- NOTE | 2021-04-05 05:58 | NUR ---
SHIFT SUMMARY PT ALERT AND ORIENTED X 4. HR STABLE. OXYGEN SATURATION MAINTAINED ABOVE 92% ON CPAP T/O NIGHT. SEE EHR FOR SETTINGS. PT TURNED Q 2 HRS. NO CP OR PRESSURE REPORTED. PT REPORTS PAIN ONCE DURING SHIFT. MEDICATED, SEE EMAR. PATEL PATENT AND DRAINING TO GRAVITY. BP STABLE. WILL CONT TO MONITOR UNTIL REPORT GIVEN TO DAYSHIFT RN.
[2021-04-05 06:01] LABS: Hematocrit 38.9 % (33.0-51.0); Hemoglobin 12.4 g/dL (11.5-16.0)
[2021-04-05 06:15] LABS: Albumin, Blood 2.9 g/dL (3.4-5.0); Anion Gap 7 mmol/L (6-16); Blood Urea Nitrogen 42 mg/dL (8-24); Bun/Creatinine Ratio 28.6 (12.0-20.0); CO2, Blood 26 mmol/L (21-32); Calcium, Blood 8.5 mg/dL (8.5-10.1); Chloride, Blood 106 mmol/L (98-108); Creatinine, Blood 1.47 mg/dL (0.40-1.00); Glomerular Filtration Rate 35 (60-); Glucose, Blood 90 mg/dL (70-99); Magnesium, Blood 2.2 mg/dL (1.6-2.4); Phosphorus, Blood 2.4 mg/dL (2.5-4.9); Potassium, Blood 4.1 mmol/L (3.5-5.5); Sodium, Blood 139 mmol/L (136-145)
--- NOTE | 2021-04-05 13:41 | NUR ---
Case Conference Note Pt resting in bed with her eyes closed. Pt left undisturbed at this time. Reviewed chart, discussed case with Primary RN Rajat and Dr Ray. Dr Ray had discussion with Pt and family regarding current plan of care and future plan of care. Will address completing new POLST tomorrow. Palliative Care will remain available.
--- NOTE | 2021-04-05 17:55 | NUR ---
SHIFT SUMMARY PT A/O X3 AND COOPERATIVE OF CARE. SBP'S RANGED 90-110'S, OTHER VSS THROUGHOUT SHIFT WITH O2 SATS >97% ON RA. PT HR CONTINUED TO SWITCH FROM SB TO ST THROUGHOUT SHIFT, PT ASYMPTOMATIC. NO REPORT OF CHEST PAIN/PRESSURE THROUGHOUT SHIFT. PT REPORTED SOB WHEN BEING TURNED FOR BEDPAN, SATS REMAINED IN 90'S. PATEL IN PLACE DRAINING TO GRAVITY, SOFIA URINE. NO ACUTE CHANGES THROUGHOUT SHIFT.
[2021-04-06 04:39] LABS: Hematocrit 40.7 % (33.0-51.0); Hemoglobin 12.8 g/dL (11.5-16.0)
[2021-04-06 05:10] LABS: Anion Gap 9 mmol/L (6-16); Blood Urea Nitrogen 39 mg/dL (8-24); Bun/Creatinine Ratio 29.1 (12.0-20.0); CO2, Blood 24 mmol/L (21-32); Calcium, Blood 8.8 mg/dL (8.5-10.1); Chloride, Blood 105 mmol/L (98-108); Creatinine, Blood 1.34 mg/dL (0.40-1.00); Glomerular Filtration Rate 39 (60-); Glucose, Blood 88 mg/dL (70-99); Magnesium, Blood 2.1 mg/dL (1.6-2.4); Phosphorus, Blood 2.6 mg/dL (2.5-4.9); Potassium, Blood 4.4 mmol/L (3.5-5.5); Sodium, Blood 138 mmol/L (136-145)
--- NOTE | 2021-04-06 05:35 | NUR ---
SHIFT SUMMARY PT ALERT AND ORIENTED X 4. HR TACHY 110'S TO LIO 40'S. PT STATED ONCE THIS SHIFT SHE "FELT HER HR GO UP." PT REPORTS TO HAVE ONLY FELT THIS ONCE AND REPORTS NO PAIN OR DIZZINESS. BLOOD PRESSURE STABLE. WILL INFORM DAYSHIFT RN. PT TURNED Q 2 HRS. PATEL CATHETER TO GRAVITY DRAIN. OXYGEN SATURATION MAINTAINED ABOVE 92% ON RA OR ON CPAP WHILE SLEEPING. PT REPORTS NO PAIN DURING SHIFT. WILL CONT TO MONITOR UNTIL REPORT GIVEN TO DAYSHIFT RN.
--- NOTE | 2021-04-06 12:32 | NUR ---
Spoke with Dr Ray prior to Pt visit and disucssed case. Pt agreeable for hospice but at facility, she does not want to return home. New POLST completed with web assistant Alyssa assisting with completing. Dr Ray will signs POLST when he makes his next rounds. Pt resting in bed and denies pain and dyspnea at this time. She reports current regimen is managing her pain. Offered supportive listening as Pt reports not wanting to at home due to concerns with her and son having to live there after she passes. Discussed plan for hospice and placement with Pt being in agreement. Pt still appears somewhat timid regarding plans and this RN just offerd supportive visit. Pt expresses appreciation and reports no other concerns at this time. Palliative Care will remain available.
--- NOTE | 2021-04-06 12:58 | NUR ---
Shift note: Pt is A&O, pleasant with cares. VSS on RA, BP soft and scheduled mitodrine given per orders. Pt wears CPAP at night and prn. Dinh in place and draining well. Pt is a lyft pt, we are able to do 2 person assist with incontined BMs. Pt has had [address] Baron rounded on pt this AM. Tele was d/c today after status change, she was 50-120s prior to d/c. POLST was signed by pt and is in chart, stating comfort measure. Powerglide right upper arm that does not draw, but flushes well and a forarm PIV that flushes well. Q2 turns, reddened panus and buttom. 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
--- NOTE | 2021-04-06 13:31 | NUR ---
Report given to Tiff ROME on medical floor.
--- NOTE | 2021-04-06 13:55 | NUR ---
pt tx to medical floor. report received from perlita rosa. pt a/o x4 on arrival. denies pain, discomfort. pt has foly in place patent and draining clear yellow urine. pt denies symptoms of uti. pt oriented to room/call light. bed in low position call light in hand. Pt denies any needs other than requesting ice water which was provided.
--- NOTE | 2021-04-06 18:55 | NUR ---
SHIFT SUMMARY: pT A/O X 4, BEDREST, TURN Q2 LIFT PT. PLEASANT AND COOPERATIVE WITH CARE. PT TX FROM PCU TODAY. PT HAD NO COMPLAINTS THROUGH REST OF DAY. BP LOW THIS AM BUT IMPROVED IN AFTERNOON. PT ASYMPTOMATIC. PATEL PATENT AND DRAINING CLEAR YELLOW URINE.
--- NOTE | 2021-04-07 04:59 | NUR ---
SHIFT SUMMARY PT HAD AN UNEVENTFUL NIGHT. ATTEMPTED TO GET PT HOOKED UP TO CONTINUOUS PULSE MONITORING ORDERED. RT STATED THAT THEY DIDN'T HAVE ANY AND WOULD LOOK FOR ONE. PT REMAINS OFF OF CONTINUOUS PULSE OX. HEART RATE WITH VITALS CHECKS IN THE LOW 100'S. PT WORE CPAP WHILE SLEEPING. OTHERWISE ON RA. PANNUS FOLDS AND MELANIE AREA WITH YEAST RASH. ANTIFUNGAL POWDER APPLIED. PATEL CATHETER PATENT AND DRAINING. PT REPOSITIONED MUCH TOLERATED. DAUGHTER UPDATED BY PHONE. VITAL SIGNS STABLE. WILL CONTINUE TO MONITOR.
[2021-04-07 05:32] LABS: Hemoglobin 12.8 g/dL (11.5-16.0)
[2021-04-07 06:03] LABS: Anion Gap 8 mmol/L (6-16); Blood Urea Nitrogen 35 mg/dL (8-24); Bun/Creatinine Ratio 26.3 (12.0-20.0); CO2, Blood 26 mmol/L (21-32); Calcium, Blood 8.8 mg/dL (8.5-10.1); Chloride, Blood 104 mmol/L (98-108); Creatinine, Blood 1.33 mg/dL (0.40-1.00); Glomerular Filtration Rate 39 (60-); Glucose, Blood 93 mg/dL (70-99); Magnesium, Blood 2.1 mg/dL (1.6-2.4); Phosphorus, Blood 2.6 mg/dL (2.5-4.9); Potassium, Blood 4.2 mmol/L (3.5-5.5); Sodium, Blood 138 mmol/L (136-145)
--- NOTE | 2021-04-07 11:11 | NUR ---
Received referral from [facility] Meteorology Instructor (Lucero Ralph) on 04/07/2021. Patient is to discharge with orders for hospice and family elected [facility]. Gathered supporting documentation for referral (face sheet, labs, imaging, progress notes, palliative care note, and H&P) and sent to [facility] Hospice printing manager (Anthony Reyes) for review of hospice appropriateness and ability to accept patient onto service post discharge. Will await further information from hospice printing manager regarding the above. Breanne Lockwood Referral Liaison
--- NOTE | 2021-04-07 12:13 | NUR ---
Notes/assessements-RT/medications/facesheet emailed to [facility] Liaison Celeste Evangelista to review for readmission.
--- NOTE | 2021-04-07 15:02 | NUR ---
Received notification from [facility] Hospice virtualization consultant (Anthony Reyes) that patient is hospice appropriate and able to be accepted onto service post discharge. Will attempt to meet with patient and family today or tomorrow to further discuss the above. Will continue to monitor and follow for discharge. Breanne Lockwood Referral Liaison
--- NOTE | 2021-04-07 16:02 | NUR ---
Late Entry from 04/07/2021 at 1510: Contacted patient's (Edmond Winkler) to further discuss hospice services and the election of [facility]. Patient's is hard of hearing and asks this public relations writer to contact their daughter (Liset Mercado). Spoke with patient's daughter who states they aren't sure if they are quite ready for hospice services yet. Daughter states that she would like to further discuss with [facility] (where patient resides in [facility]) and the family and will contact this public relations writer tomorrow- 04/08/2021 regarding hospice services. Will continue to monitor and follow for discharge. Breanne Lockwood Referral Liaison
--- NOTE | 2021-04-08 04:16 | NUR ---
CLINICAL REHABILITATION SPECIALIST SUMMARY HAS BEEN RSTING QUIELTY WITH CPAP AND HOB ELEVATED ABOUT 40 DEGREES THIS SHIFT. TOLERATED HS MEDS WELL. NO C/O CHEST PAIN OR ACUTE DISTRESS NOGTED. CALL LIGHT IN REACH. ISOLATION PRECAUTIONS MAINTAINED
[2021-04-08 08:32] LABS: Albumin, Blood 2.9 g/dL (3.4-5.0); Anion Gap 6 mmol/L (6-16); Blood Urea Nitrogen 32 mg/dL (8-24); Bun/Creatinine Ratio 26.2 (12.0-20.0); CO2, Blood 27 mmol/L (21-32); Calcium, Blood 8.9 mg/dL (8.5-10.1); Chloride, Blood 105 mmol/L (98-108); Creatinine, Blood 1.22 mg/dL (0.40-1.00); Glomerular Filtration Rate 43 (60-); Glucose, Blood 89 mg/dL (70-99); Magnesium, Blood 1.9 mg/dL (1.6-2.4); Phosphorus, Blood 2.4 mg/dL (2.5-4.9); Potassium, Blood 4.7 mmol/L (3.5-5.5); Sodium, Blood 138 mmol/L (136-145)
[2021-04-08] MEDS ORDERED: FURO40 PO (11:26)
[2021-04-08] MEDS ORDERED: AMIODARONE HCL400 M2 PO (11:26)
[2021-04-08] MEDS ORDERED: LACT PO (11:27)
[2021-04-08] MEDS ORDERED: MIDO5 PO (11:27)
[2021-04-08] MEDS ORDERED: LINEZOLID PO (11:27)
--- NOTE | 2021-04-08 11:30 | NUR ---
Received notification from [facility] Nutrition Partner (Lucero Ralph) that patient's family has decided to not pursue hospice at this time. Notified [facility] Hospice Intake PERFORMANCE MAKEUP ARTIST (Donna Stovall) of the above. No further interventions required. Breanne Lockwood Referral Liaison
[2021-04-08 14:56] LABS: Influenza A, PCR NEGATIVE (NEGATIVE); Influenza B, PCR NEGATIVE (NEGATIVE); Resp Syncytial Virus, PCR NEGATIVE (NEGATIVE); SARS-Cov-2 (COVID-19) PCR, MMC NEGATIVE (NEGATIVE)
--- NOTE | 2021-04-09 09:53 | NUR ---
Per Dr. Katalina Ray discharge appropriate. Patient does not oppose discharge. Patient returned to [facility] (senior care care). Patient's family declined hospice care at this time. Date of discharge: 04/08/2021 Date of admission: 03/30/2021 Provisional diagnosis at time of admission: Acute Renal Failure Final Diagnosis at time of discharge: Acute Renal Failure Transportation provided by: [facility]/gurney transport with Oxygen (provided by [facility]) Follow-ups needed: [facility] CHANDNI will contact facility to schedule hospital follow-up visit. Reinforced need to attend follow-up with option of telehealth appointment. [facility] will coordinate follow-up visit due to transportation schedule. Provider/PCP: Dr. Gonzalez When: WITHIN 1 WEEK Specialty: Patient's family declined hospice When: N/A Confirmed numbers: Olive Hutchins [phone] Comment: UVNR will contact PCP for any needs. Patient has a strong support network.
== END 2021-04-08 16:54 | DRG 308 ==
LOC: ER 18:42 → PCU 18:43 → MEDS 04-06 13:44
PROVIDERS: Emergency Medicine; Family Medicine; Hospitalist; Internal Medicine Cardiovascular Disease; Internal Medicine Nephrology; ADMIT Internal Medicine
DX: R00.1 Bradycardia, unspecified (principal); G93.41 Metabolic encephalopathy; N17.9 Acute kidney failure, unspecified; N25.81 Secondary hyperparathyroidism of renal origin; E87.2 Acidosis; N39.0 Urinary tract infection, site not specified; I13.0 Hypertensive heart and chronic kidney disease with heart failure and stage 1 through stage 4 chronic kidney disease, or unspecified chronic kidney disease; Z66 Do not resuscitate; Z20.822 Contact with and (suspected) exposure to COVID-19; Z51.5 Encounter for palliative care; E83.39 Other disorders of phosphorus metabolism; Z53.29 Procedure and treatment not carried out because of patient's decision for other reasons; I48.0 Paroxysmal atrial fibrillation; E03.9 Hypothyroidism, unspecified; I27.20 Pulmonary hypertension, unspecified; E66.01 Morbid (severe) obesity due to excess calories; G47.33 Obstructive sleep apnea (adult) (pediatric); I48.92 Unspecified atrial flutter; E87.5 Hyperkalemia; D63.1 Anemia in chronic kidney disease; F32.A Depression, unspecified; N18.30 Chronic kidney disease, stage 3 unspecified; K59.00 Constipation, unspecified; T44.7X5A Adverse effect of beta-adrenoreceptor antagonists, initial encounter; R34 Anuria and oliguria; E86.0 Dehydration; K21.9 Gastro-esophageal reflux disease without esophagitis; I35.0 Nonrheumatic aortic (valve) stenosis; J44.9 Chronic obstructive pulmonary disease, unspecified; Z90.89 Acquired absence of other organs; Z90.710 Acquired absence of both cervix and uterus; Z88.8 Allergy status to other drugs, medicaments and biological substances; Z79.899 Other long term (current) drug therapy
CPT/HCPCS: 0241U; 36415; 36416; 36600; 51702; 70450; 71045; 76770; 80048; 80053; 80069; 81001; 82140; 82436; 82803; 82947; 83735; 83880; 84100; 84132; 84300; 84439; 84443; 84484; 85014; 85018; 85025; 85520; 85610; 85651; 85730; 86140; 87040; 87070; 87077; 87086; 87147; 87186; 87205; 93005; 93010; 93306; 94660; 94762; 96374; 96375; 96376; 99285-25; A9270; C1751; C9113; G0378; J0461; J0610; J0696; J1644; J1940; J2405; J2550; J7030; J7060; J7070

== ENCOUNTER 2021-04-23 15:59 | Observation (INO) | payer MEDICARE, OTHER ==
[~2021-04-23] VITALS: Ht 170.2 cm; Wt 140.9 kg
[~2021-04-23 15:59] MED LIST changes: +AMIODARONE HCL400 M2 PO; +LACT PO; +LINEZOLID PO; +MIDO5 PO
[2021-04-23] MEDS ORDERED: CALCITONIN-SAL3.7 M1 (16:18)
[2021-04-23] MEDS ORDERED: CELEXA10 MG PO (16:19)
[2021-04-23 16:59] LABS: BASOPHILS ABSOLUTE AUTO 0.06 K/mm3 (0.00-0.23); BASOPHILS PERCENT AUTO 1 % (0-2); EOSINOPHILS ABSOLUTE AUTO 0.18 K/mm3 (0.00-0.68); EOSINOPHILS PERCENT AUTO 3 % (0-6); Hematocrit 33.4 % (33.0-51.0); Hemoglobin 11.2 g/dL (11.5-16.0); IMMATURE GRAN ABSOLUTE AUTO 0.02 K/mm3 (0.00-0.10); IMMATURE GRAN PERCENT AUTO 0 % (0-1); LYMPHOCYTES ABSOLUTE AUTO 2.32 K/mm3 (0.84-5.20); LYMPHOCYTES PERCENT AUTO 35 % (21-46); MONOCYTES ABSOLUTE AUTO 1.18 K/mm3 (0.16-1.47); MONOCYTES PERCENT AUTO 18 % (4-13); Mean Corpuscular HGB 31.2 pg (26.0-34.0); Mean Corpuscular HGB Conc 33.5 g/dL (31.5-36.5); Mean Corpuscular Volume 93 fL (80-100); NEUTROPHILS ABSOLUTE AUTO 2.81 K/mm3 (1.96-9.15); NEUTROPHILS PERCENT AUTO 43 % (41-73); RDW Coefficient Variation 14.8 % (11.7-14.2); RDW Standard Deviation 50.2 fL (35.1-46.3); Red Blood Cell Count 3.59 M/mm3 (3.80-5.20); White Blood Cell Count 6.57 K/mm3 (4.00-11.30)
[2021-04-23 17:03] LABS: Mean Platelet Volume 13.2 fL (9.1-12.4)
[2021-04-23 17:05] LABS: Platelet Count 45 K/mm3 (150-400)
[2021-04-23] MEDS ORDERED: ASPIR 8181 M1 PO (21:56)
[2021-04-23] MEDS ORDERED: BUME1 PO (21:57)
[2021-04-23] MEDS ORDERED: Florastor250 MG PO (22:00)
[2021-04-23] MEDS ORDERED: PROBIOTIC1 EA13 PO (22:10)
[2021-04-24 04:56] LABS: BASOPHILS ABSOLUTE AUTO 0.04 K/mm3 (0.00-0.23); BASOPHILS PERCENT AUTO 1 % (0-2); EOSINOPHILS ABSOLUTE AUTO 0.15 K/mm3 (0.00-0.68); EOSINOPHILS PERCENT AUTO 3 % (0-6); Hematocrit 33.8 % (33.0-51.0); Hemoglobin 10.8 g/dL (11.5-16.0); IMMATURE GRAN ABSOLUTE AUTO 0.02 K/mm3 (0.00-0.10); IMMATURE GRAN PERCENT AUTO 0 % (0-1); LYMPHOCYTES PERCENT AUTO 30 % (21-46); MONOCYTES ABSOLUTE AUTO 0.94 K/mm3 (0.16-1.47); MONOCYTES PERCENT AUTO 16 % (4-13); Mean Corpuscular HGB 30.9 pg (26.0-34.0); Mean Corpuscular Volume 97 fL (80-100); Mean Platelet Volume 12.2 fL (9.1-12.4); NEUTROPHILS ABSOLUTE AUTO 2.89 K/mm3 (1.96-9.15); NEUTROPHILS PERCENT AUTO 50 % (41-73); Platelet Count 100 K/mm3 (150-400); RDW Standard Deviation 52.4 fL (35.1-46.3); White Blood Cell Count 5.74 K/mm3 (4.00-11.30)
[2021-04-24 05:14] LABS: Bun/Creatinine Ratio 31.5 (12.0-20.0); Calcium, Blood 8.9 mg/dL (8.5-10.1); Creatinine, Blood 1.46 mg/dL (0.40-1.00); Potassium, Blood 3.6 mmol/L (3.5-5.5)
--- NOTE | 2021-04-24 06:44 | NUR ---
SHIFT SUMMARY PT ADMITTED TO ROOM 329 FROM ER AT 2115 ON 04/23/21. PT A/O X 4, MED PER MAR FOR C/O CHRONIC KNEE PAIN, PT REPORTS GOOD PAIN RELIEF WITH MEDS. SKIN INTACT, REPOSITIONED FOR COMFORT, PT INCONTINENT OF URINE AND STOOL, MELANIE CARE DONE NEEDED, ATTENDS ON PT. VSS, TELE WITH JUNCTIONAL RHYTHM NOTED, RATE FROM 40'S TO LOW 100'S. PT WEARING CPAP AT NIGHT, CONT O2 MONITOR ON PT. PT ORIENTED TO ROOM AND PLAN OF CARE, ANTICIPATE D/C WHEN MEDICALLY STABLE.
--- NOTE | 2021-04-24 18:21 | NUR ---
SHIFT SUMMARY PT IS RESTING IN BED ON HER CPAP SATTING 94%. ACCORDING TO HER DAUGHTER SHE NEEDS TO BE ONHER CPAP ALL DAY SHE SLEEPS OFF AND ON AND DESATS WITHOUT IT ON. SHE HAS BEEN NAUSEOUS TODAY BUT FIRMLY DENYING ZOFRAN UNTIL DAUGHTER CONVINCED HER TO TAKE IT. FOR THE MOST PART SHE HAS NO BEEN COMPLAIN WITH TURNING, MEALS TIE OR LETTING US REPOSITION HER. SHE STATES "IT'S TOO EARLY". DR JOHNSON PLANS TO RETEST HER PLATELETS TOMMORROW AND IF HER LEVELS REMAIN STABLE THEN SHE CAN RETURN TO HER [facility]. WILL CONTINUE TO MONITOR.
--- NOTE | 2021-04-25 03:20 | NUR ---
PT HAS HAD TWO EPISODES THIS EVENING OF BRADYCARDIA, DROPPING DOWN INTO THE 40'S. SUSTAINING FOR 1 MINUTE THE FIRST TIME AND 2 MINUTES THE SECOND TIME. THE FIRST TIME BEING AT THE START OF SHIFT AND THE SECOND JUST AROUND 0245. PT ALSO HAD 2.5 SECOND PAUSE AT 0248 JUST AFTER BRADYCARDIC EPISODE AND ANOTHER PAUSE AT 0300 LASTING 2.73 SECONDS. PT HAS BEEN IN AN ACCELERATED JUNCTIONAL RHYTHM SO FAR THIS SHIFT WITH RATE MOSTLY IN THE 90'S. 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 DR. RANKIN NOTIFIED WITH ORDERS FOR CBC, CMP, AND MAGNESIUM LEVEL THIS AM AND TO CONTINUE TO MONITOR HEART RATE VIA TELE. PT WAS ASYMPTOMATIC WITH EACH EPISODE.
[2021-04-25 05:09] LABS: BASOPHILS ABSOLUTE AUTO 0.05 K/mm3 (0.00-0.23); BASOPHILS PERCENT AUTO 1 % (0-2); EOSINOPHILS ABSOLUTE AUTO 0.22 K/mm3 (0.00-0.68); EOSINOPHILS PERCENT AUTO 3 % (0-6); Hematocrit 34.6 % (33.0-51.0); IMMATURE GRAN ABSOLUTE AUTO 0.04 K/mm3 (0.00-0.10); IMMATURE GRAN PERCENT AUTO 1 % (0-1); LYMPHOCYTES ABSOLUTE AUTO 2.41 K/mm3 (0.84-5.20); LYMPHOCYTES PERCENT AUTO 37 % (21-46); MONOCYTES ABSOLUTE AUTO 0.91 K/mm3 (0.16-1.47); MONOCYTES PERCENT AUTO 14 % (4-13); Mean Corpuscular HGB 30.4 pg (26.0-34.0); Mean Corpuscular HGB Conc 31.8 g/dL (31.5-36.5); Mean Corpuscular Volume 96 fL (80-100); Mean Platelet Volume 11.6 fL (9.1-12.4); NEUTROPHILS ABSOLUTE AUTO 2.86 K/mm3 (1.96-9.15); NEUTROPHILS PERCENT AUTO 44 % (41-73); NRBC ABSOLUTE 0.02 K/mm3 (0.00-0.02); NRBC Auto 0.3 /100 WBC (0.0-0.2); Platelet Count 106 K/mm3 (150-400); RDW Coefficient Variation 14.9 % (11.7-14.2); RDW Standard Deviation 51.4 fL (35.1-46.3); Red Blood Cell Count 3.62 M/mm3 (3.80-5.20); White Blood Cell Count 6.49 K/mm3 (4.00-11.30)
[2021-04-25 05:39] LABS: Albumin, Blood 3.1 g/dL (3.4-5.0); Albumin/Globulin Ratio 0.9 (0.8-1.8); Bilirubin, Total 1.7 mg/dL (0.1-1.0); Bun/Creatinine Ratio 29.9 (12.0-20.0); Creatinine, Blood 1.37 mg/dL (0.40-1.00); Globulin, Blood 3.6 g/dL (2.2-4.0); Magnesium, Blood 2.1 mg/dL (1.6-2.4); Potassium, Blood 3.6 mmol/L (3.5-5.5); Total Protein, Blood 6.7 g/dL (6.4-8.2)
--- NOTE | 2021-04-25 05:40 | NUR ---
SHIFT SUMMARY PT HAD A GOOD NIGHT. SLEPT WELL. WAS COOPERATIVE WITH ALL CARE AND MEDICATIONS. PT DID REPORT PAIN TO BILATERAL KNEES, RIGHT WORSE THAN LEFT AND WAS MEDICATED X 1 W/ 1 TAB NORCO. GENERALIZED EDEMA. PT DOES CONTINUE TO HAVE OCCASSIONAL EPISODES OF HEMOPTYSIS. PT HAD A FEW TELEMETRY EVENTS THAT APPEAR TO BE CHRONIC IN NATURE. SEE PREVIOUS NOTES. DR RANKIN AWARE. PT WORE CPAP THIS EVENING WHILE SLEEPING. VITAL SIGNS STABLE. PLT COUNT THIS AM STABLE AT 106.
[2021-04-25 08:11] LABS: HIV AB/P24 AG SCREEN Non Reactive (Non Reactive)
[2021-04-25 10:11] LABS: HBSAG SCREEN Negative (Negative); HCV AB <0.1 (0.0-0.9); HEP A AB, IGM Negative (Negative); HEP B CORE AB, IGM Negative (Negative)
[2021-04-25 13:43] LABS: Influenza A, PCR NEGATIVE (NEGATIVE); Influenza B, PCR NEGATIVE (NEGATIVE); Resp Syncytial Virus, PCR NEGATIVE (NEGATIVE); SARS-Cov-2 (COVID-19) PCR, MMC NEGATIVE (NEGATIVE)
--- NOTE | 2021-04-25 15:00 | NUR ---
DISCHARGE NOTE PT DISCHARGED BACK TO [facility] AT 1420 BY JANELLE. [facility] DAUGHTER WAS AWARE PT WAS DISCHARGING. IV REMOVED.
--- NOTE | 2021-04-25 17:30 | NUR ---
Per Dr. Gonzalez discharge appropriate. Patient and family do not oppose discharge. Patient discharged back to [facility] and [place] [address] [facility]. She resides at [facility] for half-way stay. Date of discharge: 04/25/2021 Date of admission: 04/23/2021 Transportation provided by: [facility] contract transportation service/rosa MORAN Ordered: none Follow-ups needed: [facility] CH[facility]NI will contact facility to schedule hospital follow-up visit if needed. Provider/PCP: Dr. Gonzalez Specialty: N/A UVNR: [phone] Comment: UVNR will contact PCP with patient transitional needs/appointments/medication management, social service needs. No barriers to discharge. Patient has a support network.
== END 2021-04-25 14:17 ==
LOC: ER 15:59 → MEDS 16:00 → ENPENDDIS 04-25 09:58 → MEDS 04-25 14:17
PROVIDERS: Emergency Medicine; Family Medicine; ADMIT Internal Medicine
DX: D69.6 Thrombocytopenia, unspecified (principal); D64.9 Anemia, unspecified; R04.2 Hemoptysis; E03.9 Hypothyroidism, unspecified; J44.9 Chronic obstructive pulmonary disease, unspecified; E66.9 Obesity, unspecified; K21.9 Gastro-esophageal reflux disease without esophagitis; I13.0 Hypertensive heart and chronic kidney disease with heart failure and stage 1 through stage 4 chronic kidney disease, or unspecified chronic kidney disease; I50.30 Unspecified diastolic (congestive) heart failure; N18.30 Chronic kidney disease, stage 3 unspecified; N17.9 Acute kidney failure, unspecified; I48.20 Chronic atrial fibrillation, unspecified; G47.33 Obstructive sleep apnea (adult) (pediatric); Z88.8 Allergy status to other drugs, medicaments and biological substances; Z79.01 Long term (current) use of anticoagulants; Z66 Do not resuscitate; Z20.822 Contact with and (suspected) exposure to COVID-19
CPT/HCPCS: 0241U; 36415; 36430; 80048; 80053; 80074; 83735; 85025; 85060; 86850; 86900; 86901; 87389; 93005; 93010; 94660; 94762; 96374; 99285-25; A9270; G0378; J2405; J7030; J7120; P9035

== ENCOUNTER → 2021-05-20 | Outpatient (CLI) | payer MEDICARE, OTHER ==
[~2021-05-20] MED LIST changes: +AMIODARONE HCL200 M1 PO; +ASPIR 8181 M1 PO; +Acetaminophen650 M1 PO; +BUME1 PO; +BUME2 PO; +CALCITONIN-SAL3.7 M1; +CELEXA10 MG PO; +CITALOPRAM HBR PO; +CROM10OPSO BOTHEYES; +Florastor250 MG PO; +IPRAT-ALBUT 0.5-3 ML INH; +MICO100S TOP; +POLYMYXIN B-TMP10 ML BOTHEYES; +PROBIOTIC1 EA13 PO; +Prednisone10 MG PO; +SENNA LAXATIVE8.6 MG PO; +TRAZ50 PO
[2021-05-20 05:54] LABS: BASOPHILS ABSOLUTE AUTO 0.06 K/mm3 (0.00-0.23); BASOPHILS PERCENT AUTO 1 % (0-2); EOSINOPHILS ABSOLUTE AUTO 0.86 K/mm3 (0.00-0.68); EOSINOPHILS PERCENT AUTO 15 % (0-6); Hematocrit 36.8 % (33.0-51.0); Hemoglobin 11.9 g/dL (11.5-16.0); IMMATURE GRAN ABSOLUTE AUTO 0.01 K/mm3 (0.00-0.10); IMMATURE GRAN PERCENT AUTO 0 % (0-1); LYMPHOCYTES ABSOLUTE AUTO 1.62 K/mm3 (0.84-5.20); LYMPHOCYTES PERCENT AUTO 28 % (21-46); MONOCYTES ABSOLUTE AUTO 0.59 K/mm3 (0.16-1.47); MONOCYTES PERCENT AUTO 10 % (4-13); Mean Corpuscular HGB 29.9 pg (26.0-34.0); Mean Corpuscular HGB Conc 32.3 g/dL (31.5-36.5); Mean Corpuscular Volume 93 fL (80-100); Mean Platelet Volume 11.8 fL (9.1-12.4); NEUTROPHILS ABSOLUTE AUTO 2.66 K/mm3 (1.96-9.15); NEUTROPHILS PERCENT AUTO 46 % (41-73); Platelet Count 128 K/mm3 (150-400); RDW Coefficient Variation 16.6 % (11.7-14.2); Red Blood Cell Count 3.98 M/mm3 (3.80-5.20)
[2021-05-20 06:04] LABS: Albumin, Blood 2.9 g/dL (3.4-5.0); Albumin/Globulin Ratio 0.8 (0.8-1.8); Bilirubin, Total 2.1 mg/dL (0.1-1.0); Bun/Creatinine Ratio 21.5 (12.0-20.0); Calcium, Blood 8.6 mg/dL (8.5-10.1); Creatinine, Blood 0.98 mg/dL (0.40-1.00); Globulin, Blood 3.8 g/dL (2.2-4.0); Phosphorus, Blood 2.9 mg/dL (2.5-4.9); Potassium, Blood 3.3 mmol/L (3.5-5.5); Total Protein, Blood 6.7 g/dL (6.4-8.2)
== END | disposition home or self-care (01) ==
LOC: LAB UVN 05:32 → EDSTATUS 14:17
PROVIDERS: Hospitalist
DX: E11.22 Type 2 diabetes mellitus with diabetic chronic kidney disease (principal); I50.32 Chronic diastolic (congestive) heart failure; N18.30 Chronic kidney disease, stage 3 unspecified; D63.1 Anemia in chronic kidney disease; N39.0 Urinary tract infection, site not specified
CPT/HCPCS: 80053; 84100; 85025

== ENCOUNTER 2021-05-29 13:10 | Emergency (ER) | payer MEDICARE, OTHER ==
[~2021-05-29] VITALS: Ht 170.2 cm; Wt 100.7 kg
[~2021-05-29 13:10] MED LIST changes: -AMIODARONE HCL200 M1 PO; -Acetaminophen650 M1 PO; -BUME2 PO; -CITALOPRAM HBR PO; -CROM10OPSO BOTHEYES; -IPRAT-ALBUT 0.5-3 ML INH; -MICO100S TOP; -POLYMYXIN B-TMP10 ML BOTHEYES; -Prednisone10 MG PO; -SENNA LAXATIVE8.6 MG PO; -TRAZ50 PO
== END 2021-05-29 16:24 | disposition home or self-care (01) ==
LOC: ER 13:10
DX: I12.9 Hypertensive chronic kidney disease with stage 1 through stage 4 chronic kidney disease, or unspecified chronic kidney disease (principal); I48.91 Unspecified atrial fibrillation; D64.9 Anemia, unspecified
CPT/HCPCS: 71260; 93005; 93010; 99284-25; Q9967

== ENCOUNTER → 2021-05-29 | Outpatient (CLI) | payer MEDICARE, OTHER ==
[2021-05-29 06:49] LABS: BASOPHILS ABSOLUTE AUTO 0.01 K/mm3 (0.00-0.23); BASOPHILS PERCENT AUTO 1 % (0-2); EOSINOPHILS PERCENT AUTO 0 % (0-6); Hematocrit 38.4 % (33.0-51.0); Hemoglobin 12.4 g/dL (11.5-16.0); Mean Corpuscular HGB 29.5 pg (26.0-34.0); Mean Corpuscular HGB Conc 32.3 g/dL (31.5-36.5); Mean Corpuscular Volume 91 fL (80-100); Mean Platelet Volume 11.2 fL (9.1-12.4); Platelet Count 176 K/mm3 (150-400); RDW Coefficient Variation 16.9 % (11.7-14.2); RDW Standard Deviation 55.2 fL (35.1-46.3); White Blood Cell Count 2.21 K/mm3 (4.00-11.30)
[2021-05-29 06:50] LABS: IMMATURE GRAN PERCENT AUTO 0 % (0-1); LYMPHOCYTES ABSOLUTE AUTO 0.74 K/mm3 (0.84-5.20); LYMPHOCYTES PERCENT AUTO 34 % (21-46); MONOCYTES ABSOLUTE AUTO 0.03 K/mm3 (0.16-1.47); MONOCYTES PERCENT AUTO 1 % (4-13); NEUTROPHILS ABSOLUTE AUTO 1.43 K/mm3 (1.96-9.15); NEUTROPHILS PERCENT AUTO 65 % (41-73)
[2021-05-29 07:08] LABS: Alanine Aminotransfer (ALT/SGP 9 U/L (12-78); Albumin/Globulin Ratio 0.9 (0.8-1.8); Alk Phos 127 U/L (50-136); Anion Gap 7 mmol/L (6-16); Aspartate Aminotrans (AST/SGOT 14 U/L (12-37); Bilirubin, Total 3.1 mg/dL (0.1-1.0); Blood Urea Nitrogen 17 mg/dL (8-24); CO2, Blood 28 mmol/L (21-32); Calcium, Blood 9.1 mg/dL (8.5-10.1); Chloride, Blood 105 mmol/L (98-108); Creatinine, Blood 0.85 mg/dL (0.40-1.00); Globulin, Blood 3.4 g/dL (2.2-4.0); Glomerular Filtration Rate >60 (60-); Glucose, Blood 127 mg/dL (70-99); Potassium, Blood 3.9 mmol/L (3.5-5.5); Sodium, Blood 140 mmol/L (136-145); Total Protein, Blood 6.4 g/dL (6.4-8.2)
== END | disposition home or self-care (01) ==
LOC: LAB UVN 05:31 → EDSTATUS 14:18
PROVIDERS: Hospitalist
DX: D69.59 Other secondary thrombocytopenia (principal); N39.0 Urinary tract infection, site not specified; N17.8 Other acute kidney failure; I50.32 Chronic diastolic (congestive) heart failure; I48.20 Chronic atrial fibrillation, unspecified; J44.9 Chronic obstructive pulmonary disease, unspecified; I51.7 Cardiomegaly
CPT/HCPCS: 80053; 85025; 85379

== ENCOUNTER 2021-06-12 06:37 | Inpatient (IN) | payer MEDICARE, OTHER ==
[~2021-06-12] VITALS: Ht 170.2 cm; Wt 155.6 kg
[2021-06-12] MEDS ORDERED: TRAZ50 PO (07:45)
[2021-06-12] MEDS ORDERED: BUME2 PO (07:45)
[2021-06-12] MEDS ORDERED: Prednisone10 MG PO (07:45)
[2021-06-12] MEDS ORDERED: ELIQUIS5 M2 PO (07:46)
[2021-06-12] MEDS ORDERED: MIDO5 PO (07:46)
[2021-06-12] MEDS ORDERED: IPRAT-ALBUT 0.5-3 ML INH (07:46)
[2021-06-12 08:00] LABS: BASOPHILS ABSOLUTE AUTO 0.02 K/mm3 (0.00-0.23); BASOPHILS PERCENT AUTO 0 % (0-2); EOSINOPHILS PERCENT AUTO 4 % (0-6); Hematocrit 37.8 % (33.0-51.0); Hemoglobin 12.1 g/dL (11.5-16.0); IMMATURE GRAN ABSOLUTE AUTO 0.04 K/mm3 (0.00-0.10); IMMATURE GRAN PERCENT AUTO 0 % (0-1); LYMPHOCYTES PERCENT AUTO 18 % (21-46); MONOCYTES ABSOLUTE AUTO 0.91 K/mm3 (0.16-1.47); MONOCYTES PERCENT AUTO 9 % (4-13); Mean Corpuscular HGB 28.8 pg (26.0-34.0); Mean Corpuscular Volume 90 fL (80-100); Mean Platelet Volume 11.6 fL (9.1-12.4); NEUTROPHILS ABSOLUTE AUTO 7.48 K/mm3 (1.96-9.15); NEUTROPHILS PERCENT AUTO 70 % (41-73); Platelet Count 167 K/mm3 (150-400); RDW Coefficient Variation 17.1 % (11.7-14.2); RDW Standard Deviation 55.4 fL (35.1-46.3); White Blood Cell Count 10.75 K/mm3 (4.00-11.30)
[2021-06-12 08:17] LABS: Alanine Aminotransfer (ALT/SGP 19 U/L (12-78); Albumin, Blood 3.2 g/dL (3.4-5.0); Alk Phos 120 U/L (50-136); Anion Gap 8 mmol/L (6-16); Aspartate Aminotrans (AST/SGOT 18 U/L (12-37); Bilirubin, Total 3.6 mg/dL (0.1-1.0); Blood Urea Nitrogen 35 mg/dL (8-24); Bun/Creatinine Ratio 41.1 (12.0-20.0); CO2, Blood 30 mmol/L (21-32); Calcium, Blood 8.6 mg/dL (8.5-10.1); Chloride, Blood 103 mmol/L (98-108); Creatinine, Blood 0.85 mg/dL (0.40-1.00); Globulin, Blood 3.3 g/dL (2.2-4.0); Glomerular Filtration Rate >60 (60-); Glucose, Blood 103 mg/dL (70-99); Potassium, Blood 4.1 mmol/L (3.5-5.5); Sodium, Blood 141 mmol/L (136-145); Total Protein, Blood 6.5 g/dL (6.4-8.2)
--- NOTE | 2021-06-12 18:07 | NUR ---
PT ADMITTED FROM ED 1550 VIA STRETCHER TO BED SLIDE TX. PT SOILED WITH FECES AND SATURATED BEDDING WITH URINE. CLEANSED AND TOOK PICTURES OF PROBLEMED SKIN AREAS. ORIENTED TO ROOM SET UP AND SAFETY, PT KNOWS LIMITATIONS AND UNDERSTANDS CALL LIGHT. DR GUSMAN CAME TO BEDSIDE TO EVAL AND ORDERS WRITTEN.
[2021-06-12 22:27] LABS: Source, Urine Foley catheter
[2021-06-12 22:37] LABS: Bilirubin, Urine Neg (Neg); Blood, Urine 1+ (Neg); Glucose Qualitative, Urine Neg (Neg); Ketones, Urine Neg (Neg); Leukocyte Esterase, Urine 2+ (Neg); Nitrite, Urine Neg (Neg); Protein, Urine 1+ (Neg); Specific Gravity, Urine 1.015 (1.003-1.022); Urobilinogen, Urine 3+ (Normal)
[2021-06-12 22:59] LABS: Appearance, Urine Hazy (Clear); Color, Urine Yellow (P-Yellow)
[2021-06-12 23:00] LABS: Bacteria Few /hpf; Red Blood Cells, Urine Rare /hpf (0-2); Squamous Epithelial Cells Rare /hpf (Few); White Blood Cells, Urine TNTC /hpf (0-5)
[2021-06-13 04:47] LABS: BASOPHILS ABSOLUTE AUTO 0.02 K/mm3 (0.00-0.23); BASOPHILS PERCENT AUTO 0 % (0-2); EOSINOPHILS ABSOLUTE AUTO 0.48 K/mm3 (0.00-0.68); EOSINOPHILS PERCENT AUTO 5 % (0-6); Hematocrit 35.1 % (33.0-51.0); Hemoglobin 11.9 g/dL (11.5-16.0); IMMATURE GRAN ABSOLUTE AUTO 0.08 K/mm3 (0.00-0.10); IMMATURE GRAN PERCENT AUTO 1 % (0-1); LYMPHOCYTES ABSOLUTE AUTO 1.36 K/mm3 (0.84-5.20); LYMPHOCYTES PERCENT AUTO 14 % (21-46); MONOCYTES ABSOLUTE AUTO 0.74 K/mm3 (0.16-1.47); MONOCYTES PERCENT AUTO 8 % (4-13); Mean Corpuscular HGB 29.8 pg (26.0-34.0); Mean Corpuscular HGB Conc 33.9 g/dL (31.5-36.5); Mean Corpuscular Volume 88 fL (80-100); Mean Platelet Volume 10.9 fL (9.1-12.4); NEUTROPHILS ABSOLUTE AUTO 7.13 K/mm3 (1.96-9.15); NEUTROPHILS PERCENT AUTO 73 % (41-73); Platelet Count 131 K/mm3 (150-400); RDW Coefficient Variation 17.1 % (11.7-14.2); White Blood Cell Count 9.81 K/mm3 (4.00-11.30)
[2021-06-13 05:16] LABS: Anion Gap 8 mmol/L (6-16); Blood Urea Nitrogen 29 mg/dL (8-24); CO2, Blood 28 mmol/L (21-32); Calcium, Blood 8.4 mg/dL (8.5-10.1); Chloride, Blood 105 mmol/L (98-108); Creatinine, Blood 0.76 mg/dL (0.40-1.00); Glomerular Filtration Rate >60 (60-); Glucose, Blood 90 mg/dL (70-99); Magnesium, Blood 2.3 mg/dL (1.6-2.4); Phosphorus, Blood 2.4 mg/dL (2.5-4.9); Potassium, Blood 3.8 mmol/L (3.5-5.5); Sodium, Blood 141 mmol/L (136-145)
--- NOTE | 2021-06-13 06:20 | NUR ---
SHIFT SUMMARY PATIENT ALERT AND ORIENTED X3. HAD NO COMPLAINTS OF PAIN OR SHORTNESS OF BREATH. NO ACUTE ISSUES NOTED OVERNIGHT. CALL LIGHT WITHIN REACH. REPORT GIVEN TO ONCOMING RN.
[2021-06-13 17:14] LABS: Protein, Urine Quantitative 9.4 mg/dL (0.0-11.9)
--- NOTE | 2021-06-13 17:18 | NUR ---
PT COOPERATIVE AND PLEASANT. A/O X3. DECLINES PAIN. ON TELE. AFIB IN 80'S PER PANAMA HAT BLOCKER. NO MURMUR NOTED. ON ROOM AIR. BREATHING IS UNLABORED AND EASY. PT WEARS CPAP AT NIGHT AND WHEN SHE NAPS DURING THE DAY. CURRENTLY WEARING CPAP SHE HAS BEEN NAPPING. PT HAS RASH UNDER BREASTS, PANUS AND THIGHS. NYSTATIN POWDER APPLIED. 2+ PITTING EDEMA IN LOWER EXTREMITIES. RT LEG IS WHEEPING, OCCASIONAL WHEEPING FROM RT SIDE OF ABDOMEN. 24HR URINE WAS COLLECTED AND SENT TO LAB. BLOOD IN URINE NOTED. PATEL CATHETER IN PLACE DRAINING TO GRAVITY. BED IN LOW POSITION, CALL LIGHT IN REACH AND CALLS APPORPORATLY.
--- NOTE | 2021-06-13 18:41 | NUR ---
AGREE WITH STUDENT NOTES AND ASSESSMENTS
[2021-06-14 05:29] LABS: Hematocrit 35.6 % (33.0-51.0); Hemoglobin 11.5 g/dL (11.5-16.0)
[2021-06-14 05:58] LABS: Albumin, Blood 2.9 g/dL (3.4-5.0); Anion Gap 7 mmol/L (6-16); Blood Urea Nitrogen 25 mg/dL (8-24); Bun/Creatinine Ratio 30.6 (12.0-20.0); CO2, Blood 31 mmol/L (21-32); Calcium, Blood 8.6 mg/dL (8.5-10.1); Chloride, Blood 104 mmol/L (98-108); Creatinine, Blood 0.82 mg/dL (0.40-1.00); Glomerular Filtration Rate >60 (60-); Glucose, Blood 103 mg/dL (70-99); Magnesium, Blood 2.2 mg/dL (1.6-2.4); Phosphorus, Blood 2.4 mg/dL (2.5-4.9); Potassium, Blood 3.3 mmol/L (3.5-5.5); Sodium, Blood 142 mmol/L (136-145)
--- NOTE | 2021-06-14 06:29 | NUR ---
SHIFT SUMMARY 76 YR F ADMITTED ON 06/12/21 FOR VOLUME OVERLOAD. DNR. PT NO LONGER HAS WEEPING FROM R LEG OR ABDOMEN. 2+ PITTING EDEMA STILL VERY EVIDENT IN BLE. O2 SATS ARE IN THE 90'S ON RA BUT PT WANTS CPAP ON WHEN SHE SLEEPS. THIS A.M. I ENCOURAGED PT TO TAKE CPAP OFF SHE WATCHED TV HER SATS WERE IN THE 90'S W/O IT. SHE AGREED TO SPEND SOME TIME W/O IT ON. PT IS VERY PLEASANT AND COOPERATIVE. Na WAS SLIGHLY LOW THIS A.M. BUT PT TOTAL OUTPUT THIS SHIFT WAS 1700. HR IS AFIB IN THE 80'S. NYSTATIN POWDER APPLIED TO PANNUS AND GROIN AREA.
--- NOTE | 2021-06-14 17:01 | NUR ---
SHIFT SUMMARY PATIENT DENIES PAIN, NAUSEA, AND SHORTNESS OF BREATH. PATIENT IS A LIFT FOR TRANSFERS. PATIENT IS A 2P MAX ASSIST FOR REPOSITIONING. PATIENT POTASSIUM LOW THIS MORNING, REPLACED. PATEL IS PATENT AND DRAINING YELLOW URINE. FLUID RESTRICTION OF 1000ML. PATIENT COMPLIANT. PATIENT LIKES TO WEAR CPAP DURING THE DAY WELL NIGHT TIME. PATIENT IS EATING AND DRINKING WELL. PATIENT IS PLEASANT AND COOPERATIVE WITH CARE.
[2021-06-15] MEDS ORDERED: CITALOPRAM HBR PO (00:40)
[2021-06-15] MEDS ORDERED: AMIODARONE HCL200 M1 PO (00:41)
[2021-06-15] MEDS ORDERED: POLYMYXIN B-TMP10 ML BOTHEYES (00:41)
[2021-06-15] MEDS ORDERED: IPRAT-ALBUT 0.5-3 ML INH (00:42)
[2021-06-15] MEDS ORDERED: PANTOPRAZOLE SO40 M2 PO (00:42)
[2021-06-15] MEDS ORDERED: CROM10OPSO BOTHEYES (00:43)
[2021-06-15 05:04] LABS: Hemoglobin 10.9 g/dL (11.5-16.0)
[2021-06-15 05:37] LABS: Albumin, Blood 2.9 g/dL (3.4-5.0); Anion Gap 7 mmol/L (6-16); Blood Urea Nitrogen 21 mg/dL (8-24); Bun/Creatinine Ratio 27.8 (12.0-20.0); CO2, Blood 30 mmol/L (21-32); Chloride, Blood 104 mmol/L (98-108); Creatinine, Blood 0.76 mg/dL (0.40-1.00); Glomerular Filtration Rate >60 (60-); Glucose, Blood 105 mg/dL (70-99); Phosphorus, Blood 2.4 mg/dL (2.5-4.9); Potassium, Blood 3.1 mmol/L (3.5-5.5); Sodium, Blood 141 mmol/L (136-145)
--- NOTE | 2021-06-15 18:09 | NUR ---
SHIFT SUMMARY PATIENT DENIES PAIN, NAUSEA, AND SHORTNESS OF BREATH. PATIENT IS A LIFT PATIENT. PATIENT IS A 2P FOR REPOSITIONING. PATEL IS PATENT AND DRAINING TO GRAVITY. POTASSIUM AND PHOSPHORUS LOW THIS MORNING, REPLACED. PATIENT PREFERS TO WEAR CPAP THROUGHOUT DAY WELL AT NIGHTTIME. PATIENT SLEPT THROUGHTOUT DAY. PATIENT HAD MULTIPLE VISITORS TODAY. PATIENT IS EATING AND DRINKING WELL. RIGHT LEG WEEPING SLIGHTLY THIS SHIFT. PATIENT IS PLEASANT AND COOPERATIVE WITH CARE.
[2021-06-16 04:34] LABS: Hematocrit 33.9 % (33.0-51.0)
[2021-06-16 04:51] LABS: Albumin, Blood 2.9 g/dL (3.4-5.0); Anion Gap 7 mmol/L (6-16); Blood Urea Nitrogen 18 mg/dL (8-24); CO2, Blood 29 mmol/L (21-32); Calcium, Blood 8.5 mg/dL (8.5-10.1); Chloride, Blood 105 mmol/L (98-108); Creatinine, Blood 0.78 mg/dL (0.40-1.00); Glomerular Filtration Rate >60 (60-); Glucose, Blood 97 mg/dL (70-99); Magnesium, Blood 2.2 mg/dL (1.6-2.4); Phosphorus, Blood 2.5 mg/dL (2.5-4.9); Potassium, Blood 3.5 mmol/L (3.5-5.5); Sodium, Blood 141 mmol/L (136-145)
--- NOTE | 2021-06-16 05:59 | NUR ---
SHIFT SUMMARY 76 YR F ADMITTED SINCE 06/12/21. DNR. NO ACUTE CHANGES THIS SHIT. PT WAS A BIT DEMANDING WITH STAFF REGARDING HER CARE BUT APPEARS TO BE UNWILLING TO TRY TO DO ANYTHING FOR HERSELF. FOR THE MOST PART SHE JUST WANTS TO SLEEP. SHE IS INCONTINENT OF STOOL BUT DID NOT NOTIFY STAFF WHEN SHE HAD A BOWEL MOVEMENT. BEDDING IS STILL WET AROUND HER UPPER RIGHT LEG FROM WEEPING. SHE C/O PAIN WHEN STAFF TOUCHES HER TO CLEAN HER UP OR ROLL HER AND SHE SOES NOT TOLERATE LAYING ON HER SIDE VERY WELL. 02 STATS ARE IN THE 90'S ON RA BUT PT STATES THAT SHE CANNOT BREATHE W/ HER CPAP. SHE GETS ANXIOUS WHEN HER MASK IS OFF. OVERALL PT IS PLEASANT. BED CONTROLS AND CALL LIGHT WITHIN REACH.
--- NOTE | 2021-06-16 10:41 | NUR ---
PT FLAT, COOPERATIVE WITH CARE. A/O X3. H/R IRREGULAR. ON TELE. AFIB IN 80'S. ON CPAP RIGHT NOW SHE HAS BEEN SLEEPING. LUNGS CLEAR BILATERALLY. PT IS INCONTINENT. PATEL IN PLACE DRAINING TO GRAVITY. URINE IS DARK AND ALMOST ORANGE IN COLOR. LAST BOWEL MOVEMENT WAS LAST NIGHT PER REPORT. PT HAS RASH IN BETWEEN HER FOLD WITH DESENEX POWDER BEING APPLIED. UNDER BREASTS, PANNUS, THINGS, BEHIND THE KNEE FOLD. WILL CONTINUE TO MONITOR. PT HAS BEEN SLEEPING ALL MORNING. STATES SHE CANNOT PUT HER CPAP MASK ON BY HERSELF, SHE NEEDS ASSISTANCE. DECLINES TO HELP IN CARE. WANTS EVERYTHING TO BE DONE FOR HER. BILATERAL LEG DISCOLORATION NOTED. RT LEG HAS BLISTERS PRESENT. RT SIDE OF ABD IS WHEEPING. WILL CONTINUE TO MONITOR. BED IN LOW POSITION, CALL LIGHT IN REACH, CALLS APPORPRIATLY.
--- NOTE | 2021-06-16 18:19 | NUR ---
PT FLAT. COOPERATIVE WITH CARE. A/OX3. ON TELE. PER TELE AFIB IN 80'S. IRREGULAR H/R. ON CPAP MOST OF DAY. PT STATES SHE FEELS LIKE SHE CAN BREATHE BETTER WITH IT ON. PT REMIANS AT 96% WHEN NOT IN PLACE. LUNGS CLEAR BILATERALLY. PT STATES SHE CANNOT ADJUST CPAP MASK BY HERSELF. STATES STAFF NEEDS TO PUT IT ON SHE CANNOT DO IT HERSELF. PT HAD A BOWEL MOVEMENT THIS SHIFT. PATEL IN PLACE DRAINING TO GRAVITY. DARK ORANGE IN COLOR. HAS RASH UNDER BREASTS, PANNUS, THIGHS AND BEHIND THE KNEES. DESENEX APPLIED TO ALL AREAS. +3 PITTING EDEMA IN BILATERAL LOWER EXTREMITES. BLISTERS ON LT LEG PRESENT. WEEPING FROM RT LEG AND ABDOMEN. WHITE PAD IN PLACE. PT GIVEN MIDODRINE AT DINNER. SYSTOLIC BP 110/XX. ALSO GIVEN WITH BUMEX. CHECKED WITH CTA PRIOR TO GIVING. BED IN LOW POSITION, CALL LIGHT IN REACH, CALLS APPROPRIATLY.
--- NOTE | 2021-06-16 18:53 | NUR ---
AGREE WITH STUDENT NOTES AND DOCUMENTATION
--- NOTE | 2021-06-17 04:44 | NUR ---
PATIENT ON ASSESSMENT A/OX4, PATIENT REQUIRES MAXIMUM ASSIST AND ABLE TO ASSIST WITH TURNS. PT STATES SHE HAS NOT WALKED IN A LONG TIME AND UNABLE TO. NOTED WITH GENERALIZED EDEMA AND WEEPING EDEMA TO BILATERAL LOWER ABDOME/THIGH AND RLE GREATER THAN LEFT. PATIENT WITH CPAP MAJORITY OF THE TIME, PT STATES THAT SHE DOES NOT WEAR OXYGEN AT HOME AND TYPICALLY ALWAYS WEARS HER CPAP AT HOME. PATIENT TURNED Q2H AT BEST OF STAFF AVAILABILITY. NO ACUTE CHANGES NOTED. PATIENT REMAINS ON 1,000 ML FLUID RESTRICTION. PATEL IN PLACE DRAINING.
[2021-06-17 04:47] LABS: BASOPHILS ABSOLUTE AUTO 0.05 K/mm3 (0.00-0.23); BASOPHILS PERCENT AUTO 1 % (0-2); EOSINOPHILS ABSOLUTE AUTO 0.67 K/mm3 (0.00-0.68); EOSINOPHILS PERCENT AUTO 8 % (0-6); Hematocrit 32.8 % (33.0-51.0); Hemoglobin 10.4 g/dL (11.5-16.0); IMMATURE GRAN ABSOLUTE AUTO 0.04 K/mm3 (0.00-0.10); IMMATURE GRAN PERCENT AUTO 1 % (0-1); LYMPHOCYTES ABSOLUTE AUTO 1.44 K/mm3 (0.84-5.20); LYMPHOCYTES PERCENT AUTO 17 % (21-46); MONOCYTES ABSOLUTE AUTO 0.73 K/mm3 (0.16-1.47); MONOCYTES PERCENT AUTO 9 % (4-13); Mean Corpuscular HGB 28.8 pg (26.0-34.0); Mean Corpuscular HGB Conc 31.7 g/dL (31.5-36.5); Mean Corpuscular Volume 91 fL (80-100); Mean Platelet Volume 10.9 fL (9.1-12.4); NEUTROPHILS ABSOLUTE AUTO 5.51 K/mm3 (1.96-9.15); NEUTROPHILS PERCENT AUTO 65 % (41-73); Platelet Count 105 K/mm3 (150-400); RDW Coefficient Variation 18.1 % (11.7-14.2); RDW Standard Deviation 58.6 fL (35.1-46.3); Red Blood Cell Count 3.61 M/mm3 (3.80-5.20); White Blood Cell Count 8.44 K/mm3 (4.00-11.30)
[2021-06-17 05:05] LABS: Alanine Aminotransfer (ALT/SGP 13 U/L (12-78); Albumin, Blood 2.6 g/dL (3.4-5.0); Albumin/Globulin Ratio 0.8 (0.8-1.8); Alk Phos 102 U/L (50-136); Anion Gap 7 mmol/L (6-16); Aspartate Aminotrans (AST/SGOT 13 U/L (12-37); Blood Urea Nitrogen 17 mg/dL (8-24); Bun/Creatinine Ratio 21.6 (12.0-20.0); CO2, Blood 27 mmol/L (21-32); Calcium, Blood 8.1 mg/dL (8.5-10.1); Chloride, Blood 107 mmol/L (98-108); Creatinine, Blood 0.79 mg/dL (0.40-1.00); Globulin, Blood 3.3 g/dL (2.2-4.0); Glomerular Filtration Rate >60 (60-); Glucose, Blood 101 mg/dL (70-99); Magnesium, Blood 2.3 mg/dL (1.6-2.4); Phosphorus, Blood 2.3 mg/dL (2.5-4.9); Potassium, Blood 3.4 mmol/L (3.5-5.5); Sodium, Blood 141 mmol/L (136-145); Total Protein, Blood 5.9 g/dL (6.4-8.2)
--- NOTE | 2021-06-17 18:30 | NUR ---
SHIFT SUMMARY PT HAS BEEN RESTING IN BED. HER IV WAS INFILTRATED THIS AM AND MUCH OF THE DAY WAS SPENT ATTEMPTING TO GET A NEW LINE. A POWERGLIDE WAS PLACED ON HER RIGHT FOREARM AND MEDICATIONS WERE FINALLY ADMINISTERED. DR REQUESTED A POWERGLIDE HE PRESUMED ONCE SHE WAS SENT HOME SHE MIGHT COME BACK AND SHE WAS A HARD STICK. SHE IS STILL EDEMATOUS AND SHE IS STILL WEEPING FLUIDS FROM THE THIGHS, CALVES, AND WAIST. SHE STILL HAS A LOT OF REDNESS IN HER GROIN AND CREASES. ATTEMPTED TO PAD AGAINST CONSTANT MOISTURE AND LAY DOWN A POWDER BARRIER IN FOLDS AND CREAM BARRIER ON BOTTOM. WILL CONTINUE TO MONITOR.
--- NOTE | 2021-06-18 03:34 | NUR ---
PATIENT A/OX4, PATIENT WITH GENERALIZED EDEMA AND WEEPING. PATEL IN PLACE DRAINING WELL. TURNED Q2H TO BEST OF STAFF AVAILABILITY. PT WITH CPAP ON CONTINOULSY AND PER PT AT HOME SHE WEARS THE SAME. PATIENT REQUESTING MASK TO BE THIGHT HOWEVER EXPLAINED TO PATIENT THE RISK OF SKIN BREAKDOWN ESPECIALLY GIVEN SHE WEARS CONTINOUSLY. PATIENT ABLE TO MINIMALLY ASSIST WITH TURNS IN BED. UPDATE GIVEN TO PT DAUGHTER. POWERGLIDE IN PLACE IN RFA WITH BLOOD RETURN NOTED.
[2021-06-18 05:48] LABS: Hematocrit 33.9 % (33.0-51.0)
[2021-06-18 06:13] LABS: Albumin, Blood 2.7 g/dL (3.4-5.0); Anion Gap 6 mmol/L (6-16); Blood Urea Nitrogen 17 mg/dL (8-24); Bun/Creatinine Ratio 22.2 (12.0-20.0); CO2, Blood 26 mmol/L (21-32); Calcium, Blood 8.3 mg/dL (8.5-10.1); Chloride, Blood 107 mmol/L (98-108); Creatinine, Blood 0.77 mg/dL (0.40-1.00); Glomerular Filtration Rate >60 (60-); Glucose, Blood 90 mg/dL (70-99); Magnesium, Blood 2.2 mg/dL (1.6-2.4); Phosphorus, Blood 2.5 mg/dL (2.5-4.9); Potassium, Blood 3.6 mmol/L (3.5-5.5); Sodium, Blood 139 mmol/L (136-145)
--- NOTE | 2021-06-18 18:40 | NUR ---
SHIFT SUMMARY MS GRAHAM IS ALERT AND ORIENTATED X 4. SHE IS ON CONTINUOUS PULSE OX AND HAS BEEN IN THE 90S, DENIES SOB IN GENERAL, BUT DOES FEEL MORE COMFORTABLE WEARING HER CPAP THROUGH MOST OF THE DAY. SHE SAID SHE FEELS SOB WHEN WITHOUT IT FOR A LONG TIME, LIKE WHEN SHE IS EATING HER MEAL TRAYS, AND THAT SHE TENDS TO EAT LESS BECAUSE OF THIS. ON FLUID RESTRICTION, DIURESED WITH GOOD UOP TO PATEL CATHETER. ON TELEMETRY - NO CALLS FROM [facility] TODAY, STRIP POSTED IN CHART EARLIER. REDNESS/SWELLING, WEEPING EDEMA TO LEFT AND RIGHT HIPS AND LEGS. BLISTER TO RIGHT LOWER LEG THAT IS SEEPING. FRAIL SKIN. PT ON AIR MATTRESS AND TURNED AND REPOSITIONED Q2HRS. SKIN FOLDS UNDER BREASTS, ABDOMEN, LEG FOLDS THAT HAVE BEEN CLEANSED AND ANTIFUNGAL POWDER APPLIED. SKIN IS GENERALLY TENDER AND IT'S TENDER FOR HER TO TURN, BUT SHE HAS COMPLIED WELL AND TOLERATED CHANGES IN POSITION. CALL LIGHT IN REACH, PT USING IT APPROPRIATELY.
[2021-06-19 05:42] LABS: Hematocrit 33.5 % (33.0-51.0); Hemoglobin 11.1 g/dL (11.5-16.0)
--- NOTE | 2021-06-19 06:05 | NUR ---
SHIFT [id number] F ADMITTED ON 06/12/21 FOR VOLUME OVERLOAD. DNR. NO ACUTE CHANGES THIS SHIFT. PT IS STILL WEEPING ON BOTH SIDES AND SPENDS MOST OF HER TIME SLEEPING. SHE WEARS HER CPAP THE MAJORITY OF THE TIME. SHE CAN BE A BIT DEMANDING AT TIMES AND GETS UPSET IF SOMEONE IS NOT PROMPTLY AT HER BEDSIDE WHEN SHE USES THE CALL BUTTON. BUT FOR THE MOST PART SHE IS PLEASANT AND COOPERATIVE.
[2021-06-19 06:26] LABS: Albumin, Blood 2.7 g/dL (3.4-5.0); Anion Gap 7 mmol/L (6-16); Blood Urea Nitrogen 17 mg/dL (8-24); CO2, Blood 29 mmol/L (21-32); Calcium, Blood 8.5 mg/dL (8.5-10.1); Chloride, Blood 105 mmol/L (98-108); Creatinine, Blood 0.77 mg/dL (0.40-1.00); Glomerular Filtration Rate 80 (60-); Glucose, Blood 93 mg/dL (70-99); Magnesium, Blood 2.2 mg/dL (1.6-2.4); Phosphorus, Blood 2.5 mg/dL (2.5-4.9); Potassium, Blood 3.4 mmol/L (3.5-5.5); Sodium, Blood 141 mmol/L (136-145)
[2021-06-19] MEDS ORDERED: Prednisone10 MG PO (11:38)
[2021-06-19] MEDS ORDERED: Acetaminophen650 M1 PO (11:38)
[2021-06-19] MEDS ORDERED: MICO100S TOP (11:39)
[2021-06-19] MEDS ORDERED: BISA10S PR (11:39)
[2021-06-19] MEDS ORDERED: SENNA LAXATIVE8.6 MG PO (11:40)
[2021-06-19] MEDS ORDERED: POTA10T PO (11:40)
[2021-06-19] MEDS ORDERED: SPIR25 PO (11:41)
[2021-06-19 13:08] LABS: Influenza A, PCR NEGATIVE (NEGATIVE); Influenza B, PCR NEGATIVE (NEGATIVE); Resp Syncytial Virus, PCR NEGATIVE (NEGATIVE); SARS-Cov-2 (COVID-19) PCR, MMC NEGATIVE (NEGATIVE)
--- NOTE | 2021-06-19 16:15 | NUR ---
DISCHARGE PATIENT TRANSPORTED VIA WHEELCHAIR TO [facility]. PATIENT GOING TO [facility] WHERE SHE LIVES. DISCHARGE INSTRUCTIONS FAXED TO [facility]. MEDICATIONS FAXED TO [facility]. BELONGINGS SENT WITH PATIENT. POWERGLIDE REMOVED WITHOUT DIFFICULTY. TELE REMOVED WITHOUT DIFFICULTY. REPORT CALLED TO DASIA KATZ AT [facility]. [facility] TO SCHEDULE FOLLOW UP APPOINTMENTS.
== END 2021-06-19 16:13 | DRG 291 ==
LOC: ER 06:37 → MEDS 13:06
PROVIDERS: Emergency Medicine; Hospitalist; Internal Medicine Nephrology; ADMIT Family Medicine
DX: I13.0 Hypertensive heart and chronic kidney disease with heart failure and stage 1 through stage 4 chronic kidney disease, or unspecified chronic kidney disease (principal); I50.33 Acute on chronic diastolic (congestive) heart failure; N25.81 Secondary hyperparathyroidism of renal origin; C90.00 Multiple myeloma not having achieved remission; I48.20 Chronic atrial fibrillation, unspecified; Z68.43 Body mass index [BMI] 50.0-59.9, adult; Z66 Do not resuscitate; Z20.822 Contact with and (suspected) exposure to COVID-19; E87.70 Fluid overload, unspecified; E88.09 Other disorders of plasma-protein metabolism, not elsewhere classified; E78.5 Hyperlipidemia, unspecified; E66.01 Morbid (severe) obesity due to excess calories; I35.0 Nonrheumatic aortic (valve) stenosis; D63.1 Anemia in chronic kidney disease; E87.6 Hypokalemia; E83.39 Other disorders of phosphorus metabolism; N18.31 Chronic kidney disease, stage 3a; G47.00 Insomnia, unspecified; I27.20 Pulmonary hypertension, unspecified; S70.11XA Contusion of right thigh, initial encounter; G47.33 Obstructive sleep apnea (adult) (pediatric); N18.2 Chronic kidney disease, stage 2 (mild); E03.9 Hypothyroidism, unspecified; J44.9 Chronic obstructive pulmonary disease, unspecified; K21.9 Gastro-esophageal reflux disease without esophagitis; Z99.89 Dependence on other enabling machines and devices; Z88.8 Allergy status to other drugs, medicaments and biological substances; Z85.830 Personal history of malignant neoplasm of bone; Z90.710 Acquired absence of both cervix and uterus; Z90.89 Acquired absence of other organs; Z79.01 Long term (current) use of anticoagulants; Z79.899 Other long term (current) drug therapy
CPT/HCPCS: 0241U; 36415; 51702; 71045; 80053; 80069; 81001; 81050; 83735; 83880; 84100; 84156; 84484; 85014; 85018; 85025; 93005; 93010; 93308; 93321; 94660; 94760; 94762; 99285-25; A9270; C1751; J3480; J7060

== ENCOUNTER → 2021-07-17 | Outpatient (CLI) | payer MEDICARE, OTHER ==
[~2021-07-17] MED LIST changes: +AMIODARONE HCL200 M1 PO; +Acetaminophen650 M1 PO; +BUME2 PO; +CITALOPRAM HBR PO; +CROM10OPSO BOTHEYES; +IPRAT-ALBUT 0.5-3 ML INH; +MICO100S TOP; +POLYMYXIN B-TMP10 ML BOTHEYES; +Prednisone10 MG PO; +SENNA LAXATIVE8.6 MG PO; +TRAZ50 PO
[2021-07-17 21:20] LABS: BASOPHILS ABSOLUTE AUTO 0.04 K/mm3 (0.00-0.23); BASOPHILS PERCENT AUTO 1 % (0-2); EOSINOPHILS ABSOLUTE AUTO 0.27 K/mm3 (0.00-0.68); EOSINOPHILS PERCENT AUTO 3 % (0-6); Hematocrit 41.8 % (33.0-51.0); Hemoglobin 13.4 g/dL (11.5-16.0); IMMATURE GRAN ABSOLUTE AUTO 0.02 K/mm3 (0.00-0.10); IMMATURE GRAN PERCENT AUTO 0 % (0-1); LYMPHOCYTES ABSOLUTE AUTO 1.87 K/mm3 (0.84-5.20); LYMPHOCYTES PERCENT AUTO 22 % (21-46); MONOCYTES ABSOLUTE AUTO 0.46 K/mm3 (0.16-1.47); MONOCYTES PERCENT AUTO 5 % (4-13); Mean Corpuscular HGB 28.9 pg (26.0-34.0); Mean Corpuscular HGB Conc 32.1 g/dL (31.5-36.5); Mean Corpuscular Volume 90 fL (80-100); Mean Platelet Volume 11.2 fL (9.1-12.4); NEUTROPHILS ABSOLUTE AUTO 5.86 K/mm3 (1.96-9.15); NEUTROPHILS PERCENT AUTO 69 % (41-73); Platelet Count 190 K/mm3 (150-400); RDW Coefficient Variation 16.8 % (11.7-14.2); RDW Standard Deviation 55.4 fL (35.1-46.3); Red Blood Cell Count 4.64 M/mm3 (3.80-5.20); White Blood Cell Count 8.52 K/mm3 (4.00-11.30)
[2021-07-17 21:34] LABS: Albumin, Blood 3.1 g/dL (3.4-5.0); Albumin/Globulin Ratio 0.9 (0.8-1.8); Bilirubin, Total 1.2 mg/dL (0.1-1.0); Bun/Creatinine Ratio 39.8 (12.0-20.0); Calcium, Blood 8.7 mg/dL (8.5-10.1); Creatinine, Blood 1.13 mg/dL (0.40-1.00); Globulin, Blood 3.6 g/dL (2.2-4.0); Potassium, Blood 5.6 mmol/L (3.5-5.5); Total Protein, Blood 6.7 g/dL (6.4-8.2)
== END | disposition home or self-care (01) ==
LOC: EDSTATUS 15:39 → LAB UVN 20:54
PROVIDERS: Hospitalist
DX: I50.33 Acute on chronic diastolic (congestive) heart failure (principal); N17.8 Other acute kidney failure
CPT/HCPCS: 80053; 85025